=== PATIENT | female | born 1980 | race Caucasian/White ===

== ENCOUNTER 2020-05-17 16:05 | Emergency (ER) | payer OTHER, SELFPAY ==
[2020-05-17 16:42] VITALS: BP 142/59; PULSE 95; RESP 16; TEMP 36.9; O2SAT 99; BMI 26.8
--- NOTE | 2020-05-17 16:59 | ED_ITS ---
HPI - Female Genitourinary General Chief complaint: Vaginal Bleeding <Mic Ponce NP - Last Filed: 05/17/20 17:00> Stated complaint: heavy menstrual cycle, fatigue <Mic Ponce NP - Last Filed: 05/17/20 17:00> Time Seen by Provider: 05/17/20 16:58 <Mic Ponce NP - Last Filed: 05/17/20 17:00> Source: patient <Mic Ponce NP - Last Filed: 05/17/20 17:00> Mode of arrival: ambulatory <Mic Ponce NP - Last Filed: 05/17/20 17:00> Limitations: no limitations <Mic Ponce NP - Last Filed: 05/17/20 17:00> History of Present Illness HPI Narrative: 39-year-old female who reports past medical history of migraine headaches, gastroesophageal reflux disease who presents ambulatory via triage with complaint of vaginal bleeding. <Mic Ponce NP - Last Filed: 05/17/20 17:00> Related Data Allergies/Adverse reactions: Allergies Allergy/AdvReac Type Severity Reaction Status Date / Time acetaminophen [From Vicodin] Allergy Unknown UNKNOWN Unverified 03/13/20 16:30 hydrocodone [Vicodin] AdvReac Unknown vomiting Verified 09/10/15 00:00 Bactrim Allergy Unknown Uncoded 01/02/20 00:00 From Vicodin Allergy Unknown VOMITING Uncoded 03/13/20 16:30 Vicodin Allergy Unknown vomiting, Uncoded 01/02/20 00:00 nausea <Mic Ponce NP - Last Filed: 05/17/20 17:00> PMFSH Social History Social History: Social History Advance Directives: No Advance Directives Information Provided: Yes <Mic Ponce NP - Last Filed: 05/17/20 17:00> Physical Exam Vital Signs: Vital Signs: Last Vital Signs Temp 98.4 F 05/17/20 16:42 Pulse 95 05/17/20 16:42 Resp 16 05/17/20 16:42 BP 142/59 H 05/17/20 16:42 Pulse Ox 99 05/17/20 16:42 Body Mass Index 26.8 Reviewed <Mic Ponce NP - Last Filed: 05/17/20 17:00> Vital Signs: Last Vital Signs Temp 98.4 F 05/17/20 16:42 Pulse 95 05/17/20 16:42 Resp 16 05/17/20 16:42 BP 142/59 H 05/17/20 16:42 Pulse Ox 99 05/17/20 16:42 Body Mass Index 26.8 <Eros Choudhury NP - Last Filed: 05/17/20 17:01> Const: General: cooperative and healthy appearing; No acute distress or intoxicated appearing <Miccarmen Ponce NP - Last Filed: 05/17/20 17:00> Nutritional Appearance: average body habitus <[facility] JOSSUE Ponce - Last Filed: 05/17/20 17:00> Orientation/consciousness: patient oriented x3 <[facility] JOSSUE Ponce - Last Filed: 05/17/20 17:00> HENMT: Head: Yes normal to inspection <[facility] JOSSUE Ponce - Last Filed: 05/17/20 17:00> Ears: hearing grossly normal bilaterally <Mic JOSSUE Ponce - Last Filed: 05/17/20 17:00> Eyes: General: appearance normal, both eyes and all related structures <Miccarmen Ponce NP - Last Filed: 05/17/20 17:00> Visual Alvarez: normal visual alvarez by confrontation <Miccarmen Ponce NP - Last Filed: 05/17/20 17:00> Neck: Neck: Yes normal visual inspection, No positive Brudzinski's sign, No positive Kernig's sign and No tender <[facility] JOSSUE Ponce - Last Filed: 05/17/20 17:00> Thyroid: Thyroid normal <[facility] JOSSUE Ponce - Last Filed: 05/17/20 17:00> Chest: Chest palpation & inspection: normal inspection of the chest <Miccarmen Ponce NP - Last Filed: 05/17/20 17:00> Resp: Effort & Inspection: normal respiratory effort <[facility] JOSSUE Ponce - Last Filed: 05/17/20 17:00> Cardio: Jugular venous distension: no JVD <[facility] JOSSUE Ponce - Last Filed: 05/17/20 17:00> GI: Inspection: Yes normal to inspection <[facility] JOSSUE Ponce - Last Filed: 05/17/20 17:00> Percussion: Yes normal to percussion <Mic Ponce NP - Last Filed: 05/17/20 17:00> Auscultation: normal bowel sounds <Mic Ponce NP - Last Filed: 05/17/20 17:00> : Other: Pelvic exam done by EROS STAFFORD <Eros Choudhury NP - Last Filed: 05/17/20 17:01> General: Yes no CVA tenderness <Mic Ponce NP - Last Filed: 05/17/20 17:00> External Female Exam: normal external appearance <Eros Choudhury NP - Last Filed: 05/17/20 17:01> Speculum Exam - Vagina: normal appearance of the vagina and vaginal bleeding (small, BRB, no clots ) <Eros Choudhury NP - Last Filed: 05/17/20 17:01> Speculum Exam - Cervix: normal appearance of the cervix <Eros Choudhury NP - Last Filed: 05/17/20 17:01> Bimanual exam- vagina & uterus: normal bimanual exam <Eros Choudhury NP - Last Filed: 05/17/20 17:01> Bimanual Exam- Adnexa, other: normal adnexae <Eros Choudhury NP - Last Filed: 05/17/20 17:01> OB/external & speculum: vaginal bleeding (small, BRB, no clots ) <Eros Choudhury NP - Last Filed: 05/17/20 17:01> Back/Spine/Pelvis: Back: no CVA tenderness <Mic Ponce NP - Last Filed: 05/17/20 17:00> Skin: General skin exam: no rashes or lesions noted <Mic Ponce NP - Last Filed: 05/17/20 17:00> Neuro: General: patient oriented x3 <Mic Ponce NP - Last Filed: 05/17/20 17:00> Extrem: General: Yes normal to inspection <Mic Ponce NP - Last Filed: 05/17/20 17:00>
--- NOTE | 2020-05-17 17:00 | US_ITS ---
EXAMINATION: US PELVIS COMPLETE US PELVIS TRANSVAGINAL CLINICAL INFORMATION: Pain. Bleeding. LMP 10 days ago. Tubal ligation. COMPARISON: Pelvic ultrasound dated 03/07/2019. TECHNIQUE: Transabdominal and transvaginal imaging was performed. FINDINGS: The uterus is of normal size and echogenicity measuring 10.1 x 4.7 x 6.2 cm. A regular homogeneous endometrium is identified measuring 0.7 cm. Trace fluid within the endometrium. Nabothian cysts. Both ovaries are of normal size and echogenicity. The right measures 3 x 2.3 x 2 cm for a volume of 7.2 mL. Right-sided ovarian follicles. The left measures 4 x 3.6 x 2.9 cm for a volume of 21.9 mL. Septated left ovarian cyst measuring 2.9 x 2.3 x 3 cm, new when compared to the prior examination. There is no pelvic free fluid. US/US transvaginal IMPRESSION: 1. Trace fluid within the endometrium. Multiple nabothian cysts. 2. Septated left ovarian cyst measuring up to 3 cm, new when compared to the prior examination. 3. Previously seen right ovarian cyst versus follicle no longer identified.
--- NOTE | 2020-05-17 17:00 | US_ITS ---
EXAMINATION: US PELVIS COMPLETE US PELVIS TRANSVAGINAL CLINICAL INFORMATION: Pain. Bleeding. LMP 10 days ago. Tubal ligation. COMPARISON: Pelvic ultrasound dated 03/07/2019. TECHNIQUE: Transabdominal and transvaginal imaging was performed. FINDINGS: The uterus is of normal size and echogenicity measuring 10.1 x 4.7 x 6.2 cm. A regular homogeneous endometrium is identified measuring 0.7 cm. Trace fluid within the endometrium. Nabothian cysts. Both ovaries are of normal size and echogenicity. The right measures 3 x 2.3 x 2 cm for a volume of 7.2 mL. Right-sided ovarian follicles. The left measures 4 x 3.6 x 2.9 cm for a volume of 21.9 mL. Septated left ovarian cyst measuring 2.9 x 2.3 x 3 cm, new when compared to the prior examination. There is no pelvic free fluid. US/US pelvic complete IMPRESSION: 1. Trace fluid within the endometrium. Multiple nabothian cysts. 2. Septated left ovarian cyst measuring up to 3 cm, new when compared to the prior examination. 3. Previously seen right ovarian cyst versus follicle no longer identified.
[2020-05-17 17:27] LABS: Basophils Percent Auto 0.3 % (0-2); Eosinophils Absolute Auto 0.3 X10*3/uL (0.0-0.4); Eosinophils Percent Auto 3.2 % (0-4); Hematocrit 33.8 % (37-47); Hemoglobin 11.1 g/dl (12.0-16.0); Imm Gran Abs Auto 0.02 X10*3/uL (0.00-0.03); Imm Gran Pct Auto 0.2 % (0.0-0.4); Lymphocytes Absolute Auto 2.1 X10*3/uL (1.2-4.9); Lymphocytes Percent Auto 22.7 % (20-40); MANUAL DIFF FLAG NO; Mean Corpuscular HGB Conc 32.8 g/dl (31.0-35.0); Mean Corpuscular Hemoglobin 29.8 pg (27.0-33.0); Mean Corpuscular Volume 90.6 fL (80-98); Mean Platelet Volume 10.2 fL (9.4-12.3); Monocytes Absolute Auto 0.6 X10*3/uL (0.1-1.2); Monocytes Percent Auto 6.2 % (2-11); Neutrophils Absolute Auto 6.1 X10*3/uL (2.0-8.3); Neutrophils Percent Auto 67.4 % (45-73); Platelet Count 246 X10*3/uL (160-400); Red Blood Count 3.73 X10*6/uL (4.20-5.50); Red Cell Distribution Width 13.8 % (11.0-16.0); White Blood Count 9.1 X10*3/uL (4.8-10.8)
[2020-05-17 17:49] LABS: Alanine Aminotransferase 25 U/L (0-31); Albumin Level 4.1 g/dL (3.5-5.0); Alkaline Phosphatase 71 U/L (39-117); Anion Gap 11 (12-20); Aspartate Amino Transferase 18 U/L (5-31); Bilirubin Total 0.2 mg/dL (0.0-1.0); Blood Urea Nitrogen 10 mg/dL (9-16); Calcium 8.9 mg/dL (8.4-10.2); Carbon Dioxide 26 mmol/L (22-29); Chloride 102 mmol/L (96-108); Creatinine Clr Calc Pharmacy 85.9; Estimated Glomerular Filt Rate > 60; Glucose Random 126 mg/dL (60-115); Potassium 3.7 mmol/l (3.3-5.1); Sodium 135 mmol/L (135-145); Total Protein 7.1 g/dL (6.5-8.0)
[2020-05-18 13:10] LABS: BV Int Neg Control Negative (Negative); CT PCR NOT DETECTED (Not Detect.); NG PCR NOT DETECTED (Not Detect.)
[2020-05-18 13:11] LABS: BV Int Pos Control Positive (Positive)
== END 2020-05-17 20:01 | disposition home or self-care (01) ==
PROVIDERS: Nurse Practitioner Primary Care; Emergency Provider Internal Medicine; PCP Nurse Practitioner Family
DX: N93.8 Other specified abnormal uterine and vaginal bleeding (principal); R10.2 Pelvic and perineal pain; Z79.899 Other long term (current) drug therapy
CPT/HCPCS: 36415; 76830; 76856; 80053; 85025; 87480; 87491; 87510; 87591; 87660; 99283; 99284

== ENCOUNTER 2020-06-05 14:12 | Outpatient (REF) | payer OTHER, SELFPAY ==
[2020-06-06 07:23] LABS: BV Int Neg Control Negative (Negative); BV Int Pos Control Positive (Positive)
[2020-06-12 09:47] LABS: HPV mRNA E6/E7 rflx Not Detected (Not Detected)
[2020-07-04 16:15] LABS: CT PCR NOT DETECTED (Not Detect.); NG PCR NOT DETECTED (Not Detect.)
== END 2020-06-05 14:13 | disposition home or self-care (01) ==
LOC: HO.LAB 14:12
PROVIDERS: Visit Provider Advanced Practice Midwife
DX: Z01.419 Encounter for gynecological examination (general) (routine) without abnormal findings (principal); Z20.2 Contact with and (suspected) exposure to infections with a predominantly sexual mode of transmission; N93.8 Other specified abnormal uterine and vaginal bleeding
CPT/HCPCS: 87480; 87491; 87510; 87591; 87624; 87625; 87660; 88142

== ENCOUNTER 2020-08-22 10:31 | Outpatient (REF) | payer OTHER, SELFPAY ==
--- NOTE | ~2020-08-22 | XR_ITS ---
EXAMINATION: XR SINUSES CLINICAL INFORMATION: Sinusitis. COMPARISON: None TECHNIQUE: 4 views. FINDINGS: The right frontal sinus is not visualized, which may be secondary to opacification from sinusitis versus under-pneumatization. The left frontal sinus, maxillary sinuses appear well aerated. No acute calvarial fracture. XR/XR sinus min 3V IMPRESSION: Nonvisualization of the right frontal sinus, from sinusitis versus under- pneumatization.
== END 2020-08-22 10:32 | disposition home or self-care (01) ==
LOC: HO.XRAY 10:31
PROVIDERS: PCP Internal Medicine; Visit Provider Otolaryngology
DX: J32.9 Chronic sinusitis, unspecified (principal)
CPT/HCPCS: 70220

== ENCOUNTER 2020-08-25 16:17 | Outpatient (REF) | payer OTHER, SELFPAY ==
--- NOTE | ~2020-08-25 | MM_ITS ---
EXAMINATION: MM SCREENING DIGITAL BREAST TOMOSYNTHESIS, BILATERAL CLINICAL INFORMATION: Screening. Asymptomatic. Age 39. No prior breast imaging. No known family history breast cancer. The lifetime risk of breast cancer based on the Tyrer-Cuzick Model is 7%. COMPARISON: None (current study represents initial baseline exam). TECHNIQUE: Digital breast tomosynthesis is performed in both the craniocaudal and mediolateral oblique views along with computer-aided detection (CAD). Synthesized 2D images are generated from the tomosynthesis. FINDINGS: There are scattered areas of fibroglandular density (ACR BI-RADS breast composition Category b). There are no significant masses, abnormal calcifications, or other abnormalities. The axilla and skin contours are unremarkable. MM/MM tomosynthesis screening BI IMPRESSION: No mammographic evidence of malignancy. ASSESSMENT: BI-RADS 1: Negative RECOMMENDATION: Routine annual mammography screening. This patient's information was entered into a reminder system with a target due date for their next mammogram.
== END 2020-08-25 16:18 | disposition home or self-care (01) ==
LOC: HO.MAMMO 16:17
PROVIDERS: PCP Internal Medicine; Visit Provider Advanced Practice Midwife
DX: Z12.31 Encounter for screening mammogram for malignant neoplasm of breast (principal)
CPT/HCPCS: 77063; 77067

== ENCOUNTER 2020-11-06 15:05 | Outpatient (REF) | payer OTHER, SELFPAY ==
--- NOTE | ~2020-11-06 | XR_ITS ---
EXAMINATION: CERVICAL SPINE AND LUMBAR SPINE X-RAYS CLINICAL INFORMATION: Pain COMPARISON: None TECHNIQUE: 5 views of the cervical spine and 3 views of the lumbar spine FINDINGS: Cervical spine: There is curvature of the proximal thoracic spine to the right. Bone alignment is otherwise normal. No fracture or dislocation is seen. There is degenerative spondylosis from C3-C4 to C6-C7, greatest at C5-C6. There is mild right-sided neuroforaminal narrowing at C3-C4 from bony osteophyte. Bilateral neural foramen are otherwise patent. Prevertebral soft tissues are normal. Lumbar spine: Bone alignment is normal. No fracture or dislocation is seen. Disc spaces are normal. There is lower lumbar spine facet arthritis. XR/XR lumbar spine 2-3V IMPRESSION: Mild degenerative changes.
--- NOTE | ~2020-11-06 | XR_ITS ---
EXAMINATION: XR SHOULDER, LEFT CLINICAL INFORMATION: Shameka is isn't torn are outlined bases with opacity is home she there is now fluid in the abdomen or COMPARISON: Previous x-ray May 2016 TECHNIQUE: AP external rotation, Grashey, scapular Y, and axillary views of the left shoulder. FINDINGS: The bones and soft tissues are normal. No fracture. Glenohumeral and acromioclavicular alignment is anatomic with normal joint space. No abnormal soft tissue calcifications. XR/XR shoulder LT min 2V IMPRESSION: Normal left shoulder.
--- NOTE | ~2020-11-06 | XR_ITS ---
EXAMINATION: CERVICAL SPINE AND LUMBAR SPINE X-RAYS CLINICAL INFORMATION: Pain COMPARISON: None TECHNIQUE: 5 views of the cervical spine and 3 views of the lumbar spine FINDINGS: Cervical spine: There is curvature of the proximal thoracic spine to the right. Bone alignment is otherwise normal. No fracture or dislocation is seen. There is degenerative spondylosis from C3-C4 to C6-C7, greatest at C5-C6. There is mild right-sided neuroforaminal narrowing at C3-C4 from bony osteophyte. Bilateral neural foramen are otherwise patent. Prevertebral soft tissues are normal. Lumbar spine: Bone alignment is normal. No fracture or dislocation is seen. Disc spaces are normal. There is lower lumbar spine facet arthritis. XR/XR cervical spine min 6V IMPRESSION: Mild degenerative changes.
== END 2020-11-06 15:06 | disposition home or self-care (01) ==
LOC: HO.XRAY 15:05
PROVIDERS: PCP Internal Medicine; Visit Provider Internal Medicine
DX: M54.42 Lumbago with sciatica, left side (principal); M54.2 Cervicalgia
CPT/HCPCS: 72052; 72100; 73030

== ENCOUNTER 2020-12-22 15:30 | Outpatient (REF) | payer OTHER, SELFPAY ==
--- NOTE | ~2020-12-22 | US_ITS ---
EXAMINATION: PELVIC ULTRASOUND CLINICAL INFORMATION: Irregular menstrual cycles COMPARISON: Previous exam most recent April 2020 TECHNIQUE: Transabdominal and transvaginal pelvic ultrasound was performed. Transvaginal exam was performed for better visualization of the uterus and ovaries. FINDINGS: The uterus is anteverted and measures 13.3 x 4.6 x 5.9 cm in dimension. No focal uterine lesion is seen. Endometrial thickness measures 1.1 cm. There is a focal echogenic area in the endometrium with vascularity questionable for a polyp. This measures 1.1 x 0.7 x 1.2 cm. There are nabothian cysts in the cervix. The right ovary measures 3.6 x 2.4 x 2.9 cm. There is a 1.8 x 1.8 x 1.6 cm simple right ovarian cyst. The left ovary is not seen. There is no fluid in the pelvis. US/US pelvic and transvaginal IMPRESSION: Question 1 1 x 0.7 x 1.2 cm endometrial polyp. Left ovary not seen.
== END 2020-12-22 15:31 | disposition home or self-care (01) ==
LOC: HO.US 15:30
PROVIDERS: Visit Provider Internal Medicine
DX: N92.1 Excessive and frequent menstruation with irregular cycle (principal)
CPT/HCPCS: 76830; 76856

== ENCOUNTER 2021-01-07 14:18 | Outpatient (REF) | payer OTHER, SELFPAY ==
[2021-01-07 16:00] LABS: MANUAL DIFF FLAG NO
[2021-01-07 16:10] LABS: Basophils Percent Auto 0.5 % (0-2); Eosinophils Absolute Auto 0.3 X10*3/uL (0.0-0.4); Eosinophils Percent Auto 3.9 % (0-4); Hematocrit 32.4 % (37-47); Hemoglobin 10.4 g/dl (12.0-16.0); Imm Gran Abs Auto 0.03 X10*3/uL (0.00-0.03); Imm Gran Pct Auto 0.3 % (0.0-0.4); Lymphocytes Absolute Auto 2.4 X10*3/uL (1.2-4.9); Lymphocytes Percent Auto 27.5 % (20-40); Mean Corpuscular HGB Conc 32.1 g/dl (31.0-35.0); Mean Corpuscular Hemoglobin 28.1 pg (27.0-33.0); Mean Corpuscular Volume 87.6 fL (80-98); Monocytes Absolute Auto 0.6 X10*3/uL (0.1-1.2); Neutrophils Absolute Auto 5.3 X10*3/uL (2.0-8.3); Neutrophils Percent Auto 60.8 % (45-73); Platelet Count 327 X10*3/uL (160-400); Red Cell Distribution Width 16.6 % (11.0-16.0); White Blood Count 8.7 X10*3/uL (4.8-10.8)
[2021-01-07 16:18] LABS: Glucose Random 98 mg/dL (60-115)
[2021-01-07 16:44] LABS: Syphilis Screen Nonreactive (Nonreactive)
[2021-01-07 17:07] LABS: HCG Quantitative < 2 mIU/mL
[2021-01-07 18:08] LABS: Estimated Average Glucose 117 mg/dL; Hemoglobin A1c % 5.7 %
[2021-01-08 04:19] LABS: HIV AB/AG Nonreactive (Nonreactive); HIV Num 1 0.11 S/CO (0.00-0.99); ~HepC Num1 0.21 S/CO (0.00-0.79); ~Hepatitis C Antibody Nonreactive (Nonreactive)
[2021-01-08 04:24] LABS: HBsAGNum1 0.21 S/CO (0.00-0.99); Hepatitis B Surface Antigen Negative (Negative)
[2021-01-08 05:33] LABS: CT PCR NOT DETECTED (Not Detect.); NG PCR NOT DETECTED (Not Detect.)
== END 2021-01-07 14:19 | disposition home or self-care (01) ==
LOC: HO.LAB 14:18
PROVIDERS: Advanced Practice Midwife; PCP Internal Medicine; Visit Provider Obstetrics & Gynecology
DX: Z01.419 Encounter for gynecological examination (general) (routine) without abnormal findings (principal); Z11.4 Encounter for screening for human immunodeficiency virus [HIV]; Z11.3 Encounter for screening for infections with a predominantly sexual mode of transmission; Z01.84 Encounter for antibody response examination; Z11.59 Encounter for screening for other viral diseases; N92.0 Excessive and frequent menstruation with regular cycle; N93.8 Other specified abnormal uterine and vaginal bleeding; Z20.2 Contact with and (suspected) exposure to infections with a predominantly sexual mode of transmission
CPT/HCPCS: 36415; 82947; 83036; 84443; 84702; 85025; 86780; 86803; 87340; 87389; 87491; 87591

== ENCOUNTER 2021-01-08 17:00 | Outpatient (RCR) | payer OTHER, SELFPAY | END 2021-01-26 10:24 | disposition home or self-care (01) | LOC: HO.PT 17:00 | PROVIDERS: PCP Internal Medicine; Visit Provider Internal Medicine | DX: M54.89 Other dorsalgia (principal) | CPT/HCPCS: 97012; 97110; 97112; 97140; 97162 ==

== ENCOUNTER → 2021-01-21 15:11 | Outpatient (BNVA) | payer OTHER, SELFPAY | PROVIDERS: PCP Internal Medicine; Visit Provider Obstetrics & Gynecology ==

== ENCOUNTER 2021-01-23 06:41 | Day surgery (SDC) | payer OTHER, SELFPAY ==
--- NOTE | 2021-01-22 12:40 | HO.ANESPROP2 ---
Documented by User: Hanna Mondragon 01/22/21 12:42 HPI - Anesthesia Eval Consult details Narrative: 40yo F for D&C Hysteroscopy, Poss Polypectomy, Poss Myomectomy PMFSH Active Problems Active Problems: All Active Problems (Updated 01/07/21 @ 14:47 by Donovan Vyas MD) Menorrhagia (Acute) Dysfunctional uterine bleeding (Acute) Potential exposure to STD (Acute) Well woman exam with routine gynecological exam (Acute) Past Medical History Medical History Back pain Gallbladder abscess IBS (irritable bowel syndrome) Migraine Surgical History Surgical History Hx of tubal ligation Social History Social History Alcohol intake: never Patient Tobacco Use Status: Never used Tobacco Use of substances other than those prescribed or required for medical reasons: No Are you DNR?: No Advance Directives: No Advance Directives Information Provided: Yes Gender identity: female Meds Allergies Allergy/AdvReac Type Severity Reaction Status Date / Time acetaminophen [From Vicodin] Allergy Unknown UNKNOWN Verified 01/23/21 06:59 hydrocodone [Vicodin] AdvReac Unknown vomiting Verified 01/23/21 06:59 Bactrim Allergy Unknown Unknown Uncoded 01/21/21 15:24 From Vicodin Allergy Unknown VOMITING Uncoded 01/21/21 15:24 Vicodin Allergy Unknown vomiting, Uncoded 01/21/21 15:24 nausea Home Medications Medication Instructions Recorded Confirmed Last Taken Type amitriptyline 25 mg tablet 25 mg PO DAILY 06/05/20 Unknown History omeprazole 20 mg tablet,delayed 20 mg PO DAILY 06/05/20 01/23/21 06:00 History release sumatriptan succinate 100 mg tablet 100 mg PO Q2-4H PRN 06/05/20 Unknown History [id number]-[id number]-[id number] 250 2 tab PO Q6H PRN 01/21/21 01/21/21 History mg-250 mg-65 mg tablet (Excedrin Extra Strength) Exam Exam Date and Time: January 22, 2021 1240 Pertinent Lab Results Pertinent Lab Results: Laboratory Tests 01/07/21 15:10 WBC 8.7 Hgb 10.4 L Hct 32.4 L Plt Count 327 D Assessment and Plan Assessment Anesthesia Assessment: Chart Reviewed Documented by User: Christa Weller 01/23/21 08:29 PMFSH Past Medical History Medical History Back pain Gallbladder abscess IBS (irritable bowel syndrome) Migraine Surgical History Surgical History Hx of tubal ligation History of Problems with Anesthesia: No Social History Social History Alcohol intake: never Patient Tobacco Use Status: Never used Tobacco Use of substances other than those prescribed or required for medical reasons: No Are you DNR?: No Advance Directives: No Advance Directives Information Provided: Yes Gender identity: female Meds Allergies Allergy/AdvReac Type Severity Reaction Status Date / Time acetaminophen [From Vicodin] Allergy Unknown UNKNOWN Verified 01/23/21 06:59 hydrocodone [Vicodin] AdvReac Unknown vomiting Verified 01/23/21 06:59 Bactrim Allergy Unknown Unknown Uncoded 01/21/21 15:24 From Vicodin Allergy Unknown VOMITING Uncoded 01/21/21 15:24 Vicodin Allergy Unknown vomiting, Uncoded 01/21/21 15:24 nausea Home Medications Medication Instructions Recorded Confirmed Last Taken Type amitriptyline 25 mg tablet 25 mg PO DAILY 06/05/20 Unknown History omeprazole 20 mg tablet,delayed 20 mg PO DAILY 06/05/20 01/23/21 06:00 History release sumatriptan succinate 100 mg tablet 100 mg PO Q2-4H PRN 06/05/20 Unknown History [id number]-[id number]-[id number] 250 2 tab PO Q6H PRN 01/21/21 01/21/21 History mg-250 mg-65 mg tablet (Excedrin Extra Strength) Exam Airway Mallampati Class: II TM Dist: >3cm Heart: RRR Lungs: CTA Assessment and Plan Assessment Anesthesia Assessment: Anesthesia Plan Discussed and Chart Reviewed Final Anesthetic Review History of Problems with Anesthesia: No NPO: Yes ASA Class: II Final Preanesthetic Review: Meds/Allgs Chart Reviewed, Consent Obtained/Reviewed and Anes Risks/Benef Reviewed Patient Risk: Low Procedure Risk: Low Anesthetic Plan Anesthetic Plan: GA Disposition: Standard PACU
[2021-01-23] VITALS (11 sets, daily range): BP systolic 103–126; BP diastolic 62–73; PULSE 70–84; RESP 16–18; TEMP 36.3–36.4; O2SAT 94–100; BMI 27.9
[2021-01-23 07:14] LABS: UPreg QC Valid YES; Urine Pregnancy NEGATIVE (NEGATIVE)
--- NOTE | 2021-01-23 07:35 | MHC.SHP ---
Pre-Procedural Eval Section A Date of Service: 01/23/21 The patient is an INPATIENT: No Changes since office visit: No Cold of Flu in the past 2 weeks, No New Medical Problems, No Changes in Medication and No Patient answered all questions The History & Physical has been completed within 30 days and I have reviewed it.: Yes Section B Chief Complaint: Excessive and Frequent Mentruatuion Allergies: Allergies Allergy/AdvReac Type Severity Reaction Status Date / Time acetaminophen [From Vicodin] Allergy Unknown UNKNOWN Verified 01/23/21 06:59 hydrocodone [Vicodin] AdvReac Unknown vomiting Verified 01/23/21 06:59 Bactrim Allergy Unknown Unknown Uncoded 01/21/21 15:24 From Vicodin Allergy Unknown VOMITING Uncoded 01/21/21 15:24 Vicodin Allergy Unknown vomiting, Uncoded 01/21/21 15:24 nausea Plan Diagnosis/Plan: Unchanged I have reviewed the history and physical and performed a pertinent physical examination on my patient. No changes have occurred unless specified.
[2021-01-23] MEDS: Lactated Ringers 1,000 ML 100 ML IVCONT (07:45)
[2021-01-23] MEDS: Scopolamine 1.5 MG PATCH.TD.3 TRANSDERMA (08:19)
--- NOTE | 2021-01-23 08:45 | P.BOP_ITS ---
Brief Operative Note Date of Service: 01/23/21 Pre-op diagnosis: Menorrhagia with endometrial polyp by ultrasound Post-op diagnosis: same Procedure: Hysteroscopy D&C, Polypectomy Surgeon: Donovan Vyas MD Anesthesia: MAC Was an Spring Up Supervisor used for this Procedure?: No Estimated blood loss (mL): 0 Pathology: other (Endometrial Scrapping. Polyp) Condition: stable Disposition: PACU
--- NOTE | 2021-01-23 08:45 | P.OP_ITS ---
Operative Note Operative Note Date of Service: 01/23/21 Narrative: Preop Diagnosis: Menorrhagia with Endometrial polyp by US Operation: Diagnostic Hysteroscopy, Dilataion & Curettage and polypectomy Post Op Diagnosis: Endometrial Polyp QBL: Minimal Anesthesia: MAC Surgeon: Donovan Vays MD [employer] Paralegal: None Complication: None Pathology: Endometrial Scrapings, Endometrial polyp Procedure: The patient was put in the dorsal lithotomy position, scrubbed, and draped in the usual manner. A sterile speculum was inserted in the patient's vagina. The anterior lip of the cervix was grasped with a single tooth tenaculum. The cervix was dilated up to 5 mm, then the scope was inserted in the patient's uterus. Inspection revealed endometrial polyp. The Myosure Reach device was used; it was introduced through the operative channel and polypectomy done with no complications. At the end of the procedure, all instruments were taken out of the patient uterine and vaginal cavity. The single tooth tenaculum was removed and homeostasis was assured using pressure,. The patient tolerated the procedure well and was transferred to the PACU in a stable condition.
[2021-01-23] MEDS: Acetaminophen 325 MG TABLET 650 MG PO (09:18)
[2021-01-23] MEDS: oxyCODONE HCl Immed Release 5 MG TABLET PO (09:19)
[2021-01-23] MEDS: fentaNYL citrate/PF 100 MCG/2 ML VIAL 50 MCG IVPUSH (09:29)
[2021-01-23] MEDS: Ondansetron ODT 4 MG TAB.RAPDIS TRANSLINGU (10:45)
== END 2021-01-23 11:45 | disposition home or self-care (01) ==
PROVIDERS: PCP Internal Medicine; Visit Provider Obstetrics & Gynecology
PROC: 0UDB8ZZ Extraction of Endometrium, Via Natural or Artificial Opening Endoscopic (ICD-10-PCS; CPT 58558; principal; 2021-01-23 08:20)
DX: N92.0 Excessive and frequent menstruation with regular cycle (principal); N84.0 Polyp of corpus uteri; Z98.51 Tubal ligation status; Z79.82 Long term (current) use of aspirin; Z79.899 Other long term (current) drug therapy; Z88.0 Allergy status to penicillin
CPT/HCPCS: 58558; 81025; 88305; J1100; J1885; J2250; J2405; J3010

== ENCOUNTER 2021-01-28 15:05 | Outpatient (REF) | payer OTHER, SELFPAY ==
[2021-01-29 00:46] LABS: CT PCR NOT DETECTED (Not Detect.); NG PCR NOT DETECTED (Not Detect.)
== END 2021-01-28 15:06 | disposition home or self-care (01) ==
LOC: HO.LAB 15:05
PROVIDERS: PCP Internal Medicine; Visit Provider Obstetrics & Gynecology
DX: R10.2 Pelvic and perineal pain (principal)
CPT/HCPCS: 87491; 87591

== ENCOUNTER 2021-02-03 14:51 | Outpatient (REF) | payer OTHER, SELFPAY ==
[2021-02-03 16:43] LABS: Alanine Aminotransferase 26 U/L (0-31); Albumin Level 4.1 g/dL (3.5-5.0); Alkaline Phosphatase 71 U/L (39-117); Anion Gap 12 (12-20); Aspartate Amino Transferase 22 U/L (5-31); Bilirubin Total 0.2 mg/dL (0.0-1.0); Blood Urea Nitrogen 9 mg/dL (9-16); Calcium 9.1 mg/dL (8.4-10.2); Carbon Dioxide 26 mmol/L (22-29); Chloride 104 mmol/L (96-108); Estimated Glomerular Filt Rate > 60; Glucose Random 94 mg/dL (60-115); Lipase 15 U/L (8-78); Potassium 3.9 mmol/L (3.3-5.1); Sodium 138 mmol/L (135-145); Total Protein 7.2 g/dL (6.5-8.0)
[2021-02-05 11:06] LABS: Transglutaminase Ab IgG 8 U/mL; Transglutaminase IgA 1 U/mL
== END 2021-02-03 14:52 | disposition home or self-care (01) ==
LOC: HO.LAB 14:51
PROVIDERS: PCP Internal Medicine; Visit Provider Nurse Practitioner Family
DX: R14.0 Abdominal distension (gaseous) (principal); R10.11 Right upper quadrant pain; K21.9 Gastro-esophageal reflux disease without esophagitis; K59.04 Chronic idiopathic constipation; K58.1 Irritable bowel syndrome with constipation
CPT/HCPCS: 36415; 80053; 83516; 83690

== ENCOUNTER 2021-04-29 23:00 | Outpatient (REF) | payer OTHER, SELFPAY | END 2021-04-29 23:01 | disposition home or self-care (01) | LOC: HO.LNP 23:00 | PROVIDERS: Visit Provider Nurse Practitioner Family | DX: R14.0 Abdominal distension (gaseous) (principal) | CPT/HCPCS: 87338 ==

== ENCOUNTER → 2021-05-13 15:50 | Outpatient (BNVA) | payer OTHER, SELFPAY | PROVIDERS: PCP Internal Medicine; Visit Provider Nurse Practitioner Family ==

== ENCOUNTER 2021-07-23 11:20 | Emergency (ER) | payer OTHER, SELFPAY ==
--- NOTE | ~2021-07-23 | XR_ITS ---
EXAMINATION: XR CHEST CLINICAL INFORMATION: Shortness of breath and cough COMPARISON: Previous chest x-ray July 2019 TECHNIQUE: 2 views of the chest were obtained. FINDINGS: No significant abnormality is noted involving the heart, lungs, mediastinum, bony thorax or soft tissues. XR/XR chest 2V IMPRESSION: Unremarkable examination.
[2021-07-23 11:27] VITALS: BP 121/70; PULSE 92; RESP 18; TEMP 37.1; O2SAT 100; BMI 27.7
[2021-07-23 11:43] LABS: MANUAL DIFF FLAG NO
[2021-07-23 11:46] LABS: Basophils Absolute Auto 0.1 X10*3/uL (0.0-0.2); Basophils Percent Auto 0.5 % (0-2); Eosinophils Absolute Auto 0.4 X10*3/uL (0.0-0.4); Hematocrit 36.2 % (37.0-47.0); Hemoglobin 11.6 g/dl (12.0-16.0); Imm Gran Abs Auto 0.04 X10*3/uL (0.00-0.03); Imm Gran Pct Auto 0.4 % (0.0-0.4); Lymphocytes Absolute Auto 2.2 X10*3/uL (1.2-4.9); Lymphocytes Percent Auto 22.9 % (20-40); Mean Corpuscular Hemoglobin 29.3 pg (27.0-33.0); Mean Corpuscular Volume 91.4 fL (80.0-98.0); Mean Platelet Volume 9.7 fL (9.4-12.3); Monocytes Absolute Auto 0.6 X10*3/uL (0.1-1.2); Neutrophils Absolute Auto 6.4 x10*3/uL (2.0-8.3); Neutrophils Percent Auto 66.2 % (45-73); Platelet Count 344 X10*3/uL (160-400); Red Blood Count 3.96 X10*6/uL (4.20-5.50); Red Cell Distribution Width 13.8 % (11.0-16.0); White Blood Count 9.7 X10*3/uL (4.8-10.8)
[2021-07-23 11:51] LABS: UPreg QC Valid YES; Urine Pregnancy NEGATIVE (NEGATIVE)
--- NOTE | 2021-07-23 11:56 | ECG_ITS ---
Test Reason : WEAKNESS Blood Pressure : / mmHG Vent. Rate : 077 BPM Atrial Rate : 077 BPM P-R Int : 180 ms QRS Dur : 084 ms QT Int : 410 ms P-R-T Axes : 067 073 042 degrees QTc Int : 463 ms Normal sinus rhythm Normal ECG When compared with ECG of 04-MAR-2018 08:19, No significant change was found Referred By: Rhonda Escamilla Electronically Signed By:TIMUR ROQUE MD
--- NOTE | 2021-07-23 11:57 | ED_ITS ---
HPI - Weakness General Chief complaint: Weakness Stated complaint: WHEEZING WEAKNESS Time Seen by Provider: 07/23/21 11:36 Source: patient Mode of arrival: ambulatory Limitations: no limitations History of Present Illness HPI Narrative: Patient is a 40-year-old female with a past medical history significant for cris barrera, irritable bowel syndrome, vertigo, fibromyalgia, gallbladder abscess status post cholecystectomy. Patient reports symptom onset 6 days ago. While lying in bed she felt like she was going to pass out, reports becoming dizzy and very fatigued soon after. She has been having intermittent dizz iness/lightheadedness since then without any syncopal episodes. She reports that seem this is made worse with head movement her rapid position change. She describes as feeling off balance but unable to determine what makes it worse. Denies associated headache, vision changes, neck pain, chest pain, palpitations, pedal edema. She has also been experiencing increased frequency of diarrhea. This occurs after every time that she eats. She does endorse a history of IBS but states that is not typical for her to have diarrhea occur this frequently. There is associated nausea but no vomiting. She has had cramping to the bilateral lower lower abdomen intermittently over the past week. Denies dysuria but does endorse urinary frequency without urgency or hesitancy. Denies hematuria, abnormal vaginal discharge or bleeding, or pelvic pain. Denies any dark stools, but does report noting a pink tinge to the water after bowel movement, and denies menstruating at this time. Patient reports that she was COVID-19 positive at the end of May 2021. She has continued to have a cough that is intermittently productive with clear sputum, and she has been fatigued since then with some mild dyspnea with exertion. Denies fevers, chills, or known pulmonary disease. MD Complaint: lack of energy Onset (ago): week(s) Duration: intermittent Related Data Home Medications Medication Instructions Recorded Confirmed amitriptyline 25 mg tablet 25 mg PO DAILY 06/05/20 omeprazole 20 mg tablet,delayed 20 mg PO DAILY 06/05/20 release sumatriptan succinate 100 mg tablet 100 mg PO Q2-4H PRN 06/05/20 [id number]-ybkhjgirmddnm-[id number] 250 2 tab PO Q6H PRN 01/21/21 mg-250 mg-65 mg tablet (Excedrin Extra Strength) Previous Rx's Medication Instructions Recorded clotrimazole 1 % vaginal cream 1 appful VAGINAL BEDTIME #45 g 06/06/20 ferrous sulfate 325 mg (65 mg 325 mg PO BID 30 Days #60 tab 01/08/21 iron) tablet,delayed release docusate sodium 100 mg capsule 100 mg PO BEDTIME #30 cap 02/03/21 methylcellulose (laxative) 500 mg 500 mg PO DAILY #30 tab 02/03/21 tablet (Citrucel) sennosides 8.6 mg tablet (Natural 17.2 mg PO BEDTIME #60 tab 05/13/21 Senna Laxative) simethicone 125 mg capsule (Gas 125 mg PO TID-QID PRN #120 cap 05/13/21 Relief (simethicone)) Allergies Allergy/AdvReac Type Severity Reaction Status Date / Time hydrocodone [Vicodin] AdvReac Unknown vomiting Verified 07/23/21 11:27 Bactrim Allergy Unknown Unknown Uncoded 05/13/21 15:53 From Vicodin Allergy Unknown VOMITING Uncoded 05/13/21 15:53 Vicodin Allergy Unknown vomiting, Uncoded 05/13/21 15:53 nausea Review of Systems Verdana 4l Review of Systems: Verdana 4d [place] 4Bd Constitutional: fatigue. [place] 4d No weight loss, fever, chills, weakness. [place] 4Bd HEENT: [place] 4d No visual loss, blurred vision, double vision or yellow sclera. No hearing loss, sneezing, congestion, runny nose or sore throat. ArialArial 4Bd Skin: No rash or itching. Cardiovascular: No chest pain, chest pressure or chest discomfort. No palpitations or pedal edema. Respiratory: + mild dyspnea with exertion, intermittent cough with sputum production Gastrointestinal: + nausea, diarrhea, lower abdominal cramping. No anorexia, vomiting, or constipation. Genitourinary: + urinary frequency. No burning micturition. No urinary incontinence. Neurologic: + dizziness. No headache,, syncope, unilateral weakness, ataxia, numbness or tingling in the extremities. No change in bowel or bladder control. Musculoskeletal: No muscle pain, back pain, joint pain or stiffness. Hematologic: No bleeding or bruising. Lymphatics: No enlarged lymph nodes. Psychiatric:No depression or anxiety. Endocrine: No reports of sweating. No cold or heat intolerance. PMFSH Past Medical History Attestation statement: The following information was validated with the patient. Source: old records reviewed Medical History Back pain Gallbladder abscess IBS (irritable bowel syndrome) Migraine Surgical History Hx of hysterectomy Hx of tubal ligation Social History Social History Alcohol intake: never Patient Tobacco Use Status: Never used Tobacco Advance Directives: No Advance Directives Information Provided: Yes Gender identity: Female Physical Exam Verdana 4l Vital Signs: [place]dana 4d Verdana 4d Vital Signs: [place] 4d [place] 4Bd Last Vital Signs Verdana 4d Skin Care Consultant New 4d Skin Care Consultant New 4d Temp 98.7 F 07/23/21 11:27 Skin Care Consultant New 4d Pulse 92 07/23/21 11:27 Skin Care Consultant New 4d Resp 18 07/23/21 11:27 BP 121/70 07/23/21 11:27 Pulse Ox 100 07/23/21 11:27 BMI result Body Mass Index 27.7 Vital signs have been reviewed as normal and appeared to be correct. Blood pressure normal.? Heart rate normal.? Respiration rate normal. Temperature normal.? Oxygen saturation normal. Appearance: Alert.?Oriented to person, place and time. No acute distress.?Normal affect. Head: Normocephalic, atraumatic. No head, sinus or TMJ tenderness.? Eyes: Sclera white, conjunctiva pink. PERRL, 3 mm bilaterally. Visual [place] full to confrontation, EOMi.?No Nystagmus. Ears: Bilateral ear canals clear, TM visible with good cone of light.? Nose: Nasal mucosa pink and moist with midline septum, nares patent laurie aterally.? Mouth/ Throat: Oral mucosa pink and moist without lesions. Pharynx without exudate, tonsils symmetric, no adenopathy.? Neck: Normal inspection.? Neck supple.?? CVS: Heart sounds normal. Normal heart rate and rhythm.? Pulses normal.?? Respiratory: No respiratory distress.? Lung sounds clear to auscultation bilaterally?? Abdomen: Abdomen is soft and nontender. Normoactive bowel sounds. No pulsatile mass.?+ external hemorrhoids Skin: Skin warm and dry.? Normal skin color.? Normal skin turgor.?? Extremities: No lower extremity edema.? No calf ttp? Neuro: Moves all extremities spontaneously. Sensation intact bilaterally. No focal neuro deficits. Ambulates with normal steady gait. Course Course Course Narrative: Patient is a 40-year-old female who presented to the emergency department for m ultiple complaints including dizziness, fatigue, diarrhea, urinary frequency, and cough. CBC and a CMP, lipase to be obtained to exclude leukocytosis, anemia, electrolyte abnormality, abnormal renal function, abnormal hepatic/ biliary function. EKG to evaluate for arrhythmia. Chest x-ray to exclude infectious process or mass. Patient was seen once in L IV fluid and Zofran IV. Disposition pending results. Reevaluation(s) Reevaluation #1: Mild anemia hemoglobin 11.6 and hematocrit 36.2 consistent with comparison to labs in 2020 in 2020. No acute kidney injury, liver function testing normal, lipase normal, Urinalysis normal. EKG normal. Chest x-ray unremarkable for any acute disease. Insufficient stool in vault to obtain specimen for occult blood. Patient in no acute distress. She is tolerating oral fluids and food. Reports improvement in her dizziness after receiving IV fluids. Her dizziness is most consistent with vertigo, as it is intermittent sudden provoked by head movement, no ataxia, no arrhythmia. Regarding concern for possible rectal bleeding, given single occurrence of red tinge to water after bowel movement, advised this may be in relation to hemorrhoid, but cannot completely exclude occult blood in stool as not able to obtain specimen. Hemoglobin and hematocrit are stable, would follow up outpatient. Plan for discharge home, discussed return precautions, and advised to schedule follow-up with primary care provider in 1-3 days. Time: 14:17 [facility] - Weakness Medical Records Attestation: I reviewed the patient's medical records. Lab Data Attestation: I reviewed the patient's lab results. Result diagrams: 07/23/21 11:36 07/23/21 11:36 Labs: Lab Results 07/23/21 07/23/21 07/23/21 Range/Units 11:36 11:36 11:36 WBC 9.7 (4.8-10.8) X10*3/uL RBC 3.96 L (4.20-5.50) X10*6/uL Hgb 11.6 L (12.0-16.0) g/dl Hct 36.2 L (37.0-47.0) % MCV 91.4 (80.0-98.0) fL MCH 29.3 (27.0-33.0) pg MCHC 32.0 (31.0-35.0) g/dl RDW 13.8 (11.0-16.0) % Plt Count 344 (160-400) X10*3/uL MPV 9.7 (9.4-12.3) fL Immature Gran % (Auto) 0.4 (0.0-0.4) % Neut % (Auto) 66.2 (45-73) % Lymph % (Auto) 22.9 (20-40) % [place] % (Auto) 6.0 (2-11) % Eos % (Auto) 4.0 (0-4) % Baso % (Auto) 0.5 (0-2) % Lymph # (Auto) 2.2 (1.2-4.9) X10*3/uL [place] # (Auto) 0.6 (0.1-1.2) X10*3/uL Eos # (Auto) 0.4 (0.0-0.4) X10*3/uL Baso # (Auto) 0.1 (0.0-0.2) X10*3/uL Abs Immat Gran (auto) 0.04 H (0.00-0.03) X10*3/uL Absolute Neuts (auto) 6.4 (2.0-8.3) x10*3/uL Absolute Nucleated RBC 0.000 (0.0-0.012) X10*3/uL Nucleated RBC % (auto) 0.0 (0.0-0.2) /100WBC Sodium 134 L (135-145) mmol/L Potassium 4.0 (3.3-5.1) mmol/L Chloride 101 (96-108) mmol/L Carbon Dioxide 28 (22-29) mmol/L Anion Gap 9 L (12-20) BUN 9 (9-16) mg/dL Creatinine 0.74 (0.5-1.4) mg/dL Estim Creat Clear Calc 86.4 Estimated GFR > 60 Random Glucose 109 (60-115) mg/dL Calcium 9.4 (8.4-10.2) mg/dL Total Bilirubin 0.2 (0.0-1.0) mg/dL AST 23 (5-31) U/L ALT 28 (0-31) U/L Alkaline Phosphatase 82 (39-117) U/L Total Protein 7.6 (6.5-8.0) g/dL Albumin 4.2 (3.5-5.0) g/dL Lipase 17 (8-78) U/L Urine Color Urine Appearance Urine pH (5.0-8.0) Ur Specific [place] (1.005-1.025) Urine Protein (NEG-TRACE) MG/DL Urine Glucose (UA) (NEG) MG/DL Urine Ketones (NEG) MG/DL Urine Blood (NEG) Urine Nitrite (NEG) Ur Leukocyte Esterase (NEG) Urine Test NEGATIVE (NEGATIVE) 07/23/21 Range/Units 13:08 WBC (4.8-10.8) X10*3/uL RBC (4.20-5.50) X10*6/uL Hgb (12.0-16.0) g/dl Hct (37.0-47.0) % MCV (80.0-98.0) fL MCH (27.0-33.0) pg MCHC (31.0-35.0) g/dl RDW (11.0-16.0) % Plt Count (160-400) X10*3/uL MPV (9.4-12.3) fL Immature Gran % (Auto) (0.0-0.4) % Neut % (Auto) (45-73) % Lymph % (Auto) (20-40) % [place] % (Auto) (2-11) % Eos % (Auto) (0-4) % Baso % (Auto) (0-2) % Lymph # (Auto) (1.2-4.9) X10*3/uL [place] # (Auto) (0.1-1.2) X10*3/uL Eos # (Auto) (0.0-0.4) X10*3/uL Baso # (Auto) (0.0-0.2) X10*3/uL Abs Immat Gran (auto) (0.00-0.03) X10*3/uL Absolute Neuts (auto) (2.0-8.3) x10*3/uL Absolute Nucleated RBC (0.0-0.012) X10*3/uL Nucleated RBC % (auto) (0.0-0.2) /100WBC Sodium (135-145) mmol/L Potassium (3.3-5.1) mmol/L Chloride (96-108) mmol/L Carbon Dioxide (22-29) mmol/L Anion Gap (12-20) BUN (9-16) mg/dL Creatinine (0.5-1.4) mg/dL Estim Creat Clear Calc Estimated GFR Random Glucose (60-115) mg/dL Calcium (8.4-10.2) mg/dL Total Bilirubin (0.0-1.0) mg/dL AST (5-31) U/L ALT (0-31) U/L Alkaline Phosphatase (39-117) U/L Total Protein (6.5-8.0) g/dL Albumin (3.5-5.0) g/dL Lipase (8-78) U/L Urine Color STRAW Urine Appearance CLEAR Urine pH 6.0 (5.0-8.0) Ur Specific [place] <= 1.005 (1.005-1.025) Urine Protein NEG (NEG-TRACE) MG/DL Urine Glucose (UA) NEG (NEG) MG/DL Urine Ketones NEG (NEG) MG/DL Urine Blood NEG (NEG) Urine Nitrite NEG (NEG) Ur Leukocyte Esterase NEG (NEG) Urine Test (NEGATIVE) Imaging Data Chest x-ray: Attestation: I personally reviewed and interpreted this imaging study as follows: Radiologist's impression: IMPRESSION: Unremarkable examination. ECG Data Attestation: I personally reviewed and interpreted this ECG as follows: ECG interpretation date: 07/23/21 ECG interpretation time: 14:49 Prior ECG tracings: available for review Interpretation: Rate: 77 Rhythm:? Normal sinus rhythm [place]:? Normal Normal P waves.? Normal ANTHONY.?? Normal QRS complex.?? ST T wave :??No ST elevation or T-wave inversion qTC: 463 prior studies:? February 2018 The study has been interpreted contemporaneously by me. Discharge Plan Discharge Clinical Impression: Vertigo, Irritable bowel syndrome Patient Disposition: Home, Self-Care Additional Instructions: Your feeling better today after receiving some IV fluids and nausea medication. You have meclizine at home. Please contact your primary care provider to schedule follow-up appointment in 1-3 days. In addition, as we discussed you may return to the emergency department with any new or worsening symptoms or concerns. Prescriptions: No Action clotrimazole 1 % cream 1 appful vaginal BEDTIME Qty: 45 0RF ferrous sulfate 325 mg (65 mg iron) tablet,delayed release (DR/EC) 325 mg PO BID 30 Days Qty: 60 2RF sumatriptan succinate 100 mg tablet 100 mg PO Q2-4H PRN0RF Rx Instructions: do not exceed 2 doses per 24 hrs omeprazole 20 mg tablet,delayed release (DR/EC) 20 mg PO DAILY 0RF amitriptyline 25 mg tablet 25 mg PO DAILY 0RF Citrucel 500 mg tablet 500 mg PO DAILY Qty: 30 2RF Rx Instructions: take it with full glass of water docusate sodium 100 mg capsule 100 mg PO BEDTIME Qty: 30 3RF Excedrin Extra Strength 250-250-65 mg tablet 2 tab PO Q6H PRN (Reason: Migraine Headache) 0RF simethicone [Gas Relief (simethicone)] 125 mg capsule 125 mg PO TID-QID PRN (Reason: abdominal distention) Qty: 120 2RF sennosides [Natural Senna Laxative] 8.6 mg tablet 17.2 mg PO BEDTIME Qty: 60 1RF
[2021-07-23 12:02] LABS: Alanine Aminotransferase 28 U/L (0-31); Albumin Level 4.2 g/dL (3.5-5.0); Alkaline Phosphatase 82 U/L (39-117); Anion Gap 9 (12-20); Aspartate Amino Transferase 23 U/L (5-31); Bilirubin Total 0.2 mg/dL (0.0-1.0); Blood Urea Nitrogen 9 mg/dL (9-16); Calcium 9.4 mg/dL (8.4-10.2); Carbon Dioxide 28 mmol/L (22-29); Chloride 101 mmol/L (96-108); Creatinine Clr Calc Pharmacy 86.4; Estimated Glomerular Filt Rate > 60; Glucose Random 109 mg/dL (60-115); Sodium 134 mmol/L (135-145); Total Protein 7.6 g/dL (6.5-8.0)
[2021-07-23] MEDS: 0.9 % Sodium Chloride 1,000 ML 999 ML IV (12:22)
[2021-07-23 12:24] LABS: Lipase 17 U/L (8-78)
[2021-07-23] MEDS: ondansetron HCL 4 MG/2 ML VIAL IVPUSH (12:35)
[2021-07-23 13:15] LABS: Appearance Urine CLEAR; Color Urine STRAW; Glucose Urine UA NEG (NEG); Leukocyte Esterase Urine NEG (NEG); Nitrite Urine NEG (NEG); Specific Gravity - Urine <= 1.005 (1.005-1.025); Urine Blood NEG (NEG); Urine Ketones NEG (NEG); Urine Protein NEG (NEG-TRACE)
== END 2021-07-23 15:32 | disposition home or self-care (01) ==
PROVIDERS: Nurse Practitioner Family; Emergency Provider Emergency Medicine Emergency Medical Services; PCP Internal Medicine
DX: R42 Dizziness and giddiness (principal); K58.0 Irritable bowel syndrome with diarrhea; R53.83 Other fatigue
CPT/HCPCS: 36415; 71046; 80053; 81003; 81025; 83690; 85025; 93005; 96361; 96374; 99283; 99284; J2405

== ENCOUNTER 2021-07-27 09:07 | Outpatient (REF) | payer OTHER, SELFPAY ==
[2021-07-27 12:16] LABS: Folate 16.2 ng/mL (> or = 4.0); Vitamin B12 407 pg/mL (200-900)
[2021-07-31 13:45] LABS: Vitamin D 25-OH, D2 <4 ng/mL; Vitamin D 25-OH, D3 16 ng/mL; Vitamin D 25-OH, Total 16 ng/mL (30-100)
== END 2021-07-27 09:08 | disposition home or self-care (01) ==
LOC: HO.LAB 09:07
PROVIDERS: PCP Internal Medicine; Referring Provider Internal Medicine; Visit Provider Nurse Practitioner Family
DX: N93.8 Other specified abnormal uterine and vaginal bleeding; E55.9 Vitamin D deficiency, unspecified; Z20.2 Contact with and (suspected) exposure to infections with a predominantly sexual mode of transmission; Z01.419 Encounter for gynecological examination (general) (routine) without abnormal findings
CPT/HCPCS: 36415; 82306; 82607; 82746

== ENCOUNTER 2021-07-30 09:07 | Outpatient (REF) | payer OTHER, SELFPAY ==
[2021-08-04 16:21] LABS: CT PCR NOT DETECTED (Not Detect.); NG PCR NOT DETECTED (Not Detect.)
[2021-08-06 19:56] LABS: HPV mRNA E6/E7 rflx Not Detected (Not Detected)
== END 2021-07-30 09:08 | disposition home or self-care (01) ==
LOC: HO.LAB 09:07
PROVIDERS: Visit Provider Advanced Practice Midwife
DX: Z01.411 Encounter for gynecological examination (general) (routine) with abnormal findings (principal); Z11.51 Encounter for screening for human papillomavirus (HPV); R10.2 Pelvic and perineal pain; Z20.2 Contact with and (suspected) exposure to infections with a predominantly sexual mode of transmission; Z98.890 Other specified postprocedural states
CPT/HCPCS: 87491; 87591; 87624; 88142

== ENCOUNTER 2021-08-04 13:22 | Outpatient (REF) | payer OTHER, SELFPAY | END 2021-08-04 13:23 | disposition home or self-care (01) | LOC: HO.LNP 13:22 | PROVIDERS: Visit Provider Advanced Practice Midwife | DX: Z13.89 Encounter for screening for other disorder (principal) | CPT/HCPCS: 87491; 87591 ==

== ENCOUNTER 2021-09-15 16:19 | Outpatient (REF) | payer OTHER, SELFPAY ==
--- NOTE | ~2021-09-15 | MR_ITS ---
EXAMINATION: MRI OF THE BRAIN WITHOUT CONTRAST CLINICAL INFORMATION: 40-year-old with tremor, dizziness and giddiness. COMPARISON: 04/15/2017 CT brain. TECHNIQUE: Multiplanar multisequence MR imaging of the brain was done without IV contrast. Technical note: Examination was degraded by motion artifact throughout the study. Limited exam. FINDINGS: Brain Volume: Grossly unremarkable within the limitations of a qualitative assessment. Structural: No obvious malformations. Brain and Meninges: DWI sequence demonstrates no restricted diffusion. Specifically, there is no evidence for acute or subacute cerebral ischemia. Gradient refocused imaging demonstrates no evidence for hemorrhage, hemosiderin staining or abnormal mineral deposition. The brain appears normal in morphology and signal intensity within the limitations of the study (motion artifact). No extra-axial fluid collections, space-occupying process or mass effect are identified. Ventricles and Subarachnoid Spaces: The ventricular system and subarachnoid spaces are within normal limits. There is no hydrocephalus. Orbital Structures: The visualized orbital structures are grossly unremarkable within the limitations of the study. Vascular: Signal voids are noted in the visualized major intracranial vessels. Sinuses and Osseous Structures: Unremarkable but poorly assessed. Possible minimal retained secretions in the left mastoid. MR/MR head/brain wo con IMPRESSION: 1. Limited study due to excessive gross patient motion artifact throughout the exam. 2. No acute intracranial process identified. Unremarkable noncontrast MRI of the brain within the limitations of the exam. 3. Possible minimal retained secretions in the left mastoid.
== END 2021-09-15 16:20 | disposition home or self-care (01) ==
LOC: HO.MRI 16:19
PROVIDERS: Visit Provider Internal Medicine
DX: R25.1 Tremor, unspecified (principal); R42 Dizziness and giddiness
CPT/HCPCS: 70551

== ENCOUNTER 2021-09-21 17:08 | Outpatient (REF) | payer OTHER, SELFPAY ==
[2021-09-21 17:28] LABS: MANUAL DIFF FLAG NO
[2021-09-21 17:52] LABS: Basophils Absolute Auto 0.1 X10*3/uL (0.0-0.2); Basophils Percent Auto 0.6 % (0-2); Eosinophils Absolute Auto 0.4 X10*3/uL (0.0-0.4); Eosinophils Percent Auto 4.1 % (0-4); Hematocrit 35.4 % (37.0-47.0); Hemoglobin 11.3 g/dl (12.0-16.0); Imm Gran Abs Auto 0.02 X10*3/uL (0.00-0.03); Imm Gran Pct Auto 0.2 % (0.0-0.4); Lymphocytes Absolute Auto 2.7 X10*3/uL (1.2-4.9); Lymphocytes Percent Auto 28.2 % (20-40); Mean Corpuscular HGB Conc 31.9 g/dl (31.0-35.0); Mean Corpuscular Volume 90.8 fL (80.0-98.0); Mean Platelet Volume 9.8 fL (9.4-12.3); Monocytes Absolute Auto 0.6 X10*3/uL (0.1-1.2); Monocytes Percent Auto 6.4 % (2-11); Neutrophils Absolute Auto 5.8 x10*3/uL (2.0-8.3); Neutrophils Percent Auto 60.5 % (45-73); Platelet Count 319 X10*3/uL (160-400); Red Cell Distribution Width 14.3 % (11.0-16.0); White Blood Count 9.5 X10*3/uL (4.8-10.8)
[2021-09-21 17:58] LABS: Estimated Average Glucose 108 mg/dL; Hemoglobin A1c % 5.4 %
[2021-09-21 18:19] LABS: C Reactive Protein 0.66 mg/dL (< or = 0.50)
[2021-09-21 18:20] LABS: Alanine Aminotransferase 27 U/L (0-31); Albumin Level 4.4 g/dL (3.5-5.0); Alkaline Phosphatase 86 U/L (39-117); Anion Gap 11 (12-20); Aspartate Amino Transferase 19 U/L (5-31); Bilirubin Direct < 0.2 mg/dL (0.0-0.5); Bilirubin Total 0.2 mg/dL (0.0-1.0); Blood Urea Nitrogen 10 mg/dL (9-16); Calcium 9.8 mg/dL (8.4-10.2); Carbon Dioxide 28 mmol/L (22-29); Chloride 101 mmol/L (96-108); Cholesterol 224 mg/dL; Estimated Glomerular Filt Rate > 60; Glucose Random 87 mg/dL (60-115); HDL Cholesterol 39 mg/dL; LDL Cholesterol Calculated 139 mg/dl; Potassium 4.2 mmol/L (3.3-5.1); Sodium 136 mmol/L (135-145); Total Protein 7.6 g/dL (6.5-8.0); Triglycerides 233 mg/dL
[2021-09-21 18:27] LABS: Erythrocyte Sedimentation Rate 27 MM/HR (0-20)
[2021-09-21 18:40] LABS: Syphilis Screen Nonreactive (Nonreactive); TSH reflex Free T4 2.32 uIU/mL (0.32-4.0); Vitamin D 25-OH Total 18.2 ng/mL (>30)
[2021-09-23 15:26] LABS: Anti Nuclear Antibody Screen NEGATIVE (NEGATIVE)
[2021-09-25 15:17] LABS: CK-BB None Detected (None Detected); CK-MB 0 % (<5); CK-MM 100 % (95-100); Creatine Kinase,Total,Serum 166 U/L (29-143)
== END 2021-09-21 17:09 | disposition home or self-care (01) ==
LOC: HO.LAB 17:08
PROVIDERS: PCP Internal Medicine; Visit Provider Internal Medicine
DX: R53.83 Other fatigue (principal); R25.1 Tremor, unspecified
CPT/HCPCS: 36415; 80048; 80061; 80076; 82306; 82552; 83036; 84443; 85025; 85652; 86038; 86039; 86140; 86780

== ENCOUNTER → 2021-11-04 11:47 | Outpatient (RCR) | payer OTHER, SELFPAY | END | disposition home or self-care (01) | LOC: HO.PTCHIC 07-17 16:52 | PROVIDERS: PCP Nurse Practitioner Family; Visit Provider Nurse Practitioner Family | DX: M54.9 Dorsalgia, unspecified (principal) | CPT/HCPCS: 97014; 97110; 97161 ==

== ENCOUNTER 2021-11-24 16:09 | Outpatient (REF) | payer OTHER, SELFPAY ==
--- NOTE | ~2021-11-24 | US_ITS ---
EXAMINATION: US VENOUS ULTRASOUND WITH DOPPLER LOWER EXTREMITY, BILATERAL CLINICAL INFORMATION: Bilateral leg swelling. Assess for occult DVT. COMPARISON: None TECHNIQUE: Ultrasound of the deep veins is performed from the hip to the calf with compression sonography and color and pulse Doppler assessment. Spectral analysis with color-flow imaging is performed. FINDINGS: RIGHT: There is normal venous compression and respiratory variation and augmented flow. The visualized common femoral vein, superficial femoral vein, profunda femoral vein, popliteal vein, and the trifurcation region shows no evidence of deep venous thrombosis. No popliteal fossa cyst. LEFT: There is normal venous compression and respiratory variation and augmented flow. The visualized common femoral vein, superficial femoral vein, profunda femoral vein, popliteal vein, and the trifurcation region shows no evidence of deep venous thrombosis. No popliteal fossa cyst. US/US venous duplex LE BI IMPRESSION: No DVT demonstrated in the bilateral lower extremity.
== END 2021-11-24 16:10 | disposition home or self-care (01) ==
LOC: HO.US 16:09
PROVIDERS: PCP Internal Medicine; Visit Provider Internal Medicine
DX: K58.2 Mixed irritable bowel syndrome (principal); R22.43 Localized swelling, mass and lump, lower limb, bilateral; R14.0 Abdominal distension (gaseous); E66.3 Overweight; R79.89 Other specified abnormal findings of blood chemistry
CPT/HCPCS: 93970

== ENCOUNTER 2021-12-29 22:32 | Emergency (ER) | payer OTHER, SELFPAY | END 2021-12-30 00:30 | disposition left against medical advice (07) | PROVIDERS: Emergency Provider Emergency Medicine; PCP Internal Medicine | DX: G43.909 Migraine, unspecified, not intractable, without status migrainosus (principal) ==

== ENCOUNTER 2022-02-02 18:25 | Emergency (ER) | payer OTHER, SELFPAY ==
[2022-02-02 19:24] VITALS: BP 104/63; PULSE 84; RESP 15; TEMP 36; O2SAT 97; BMI 29.2
[2022-02-02 19:39] LABS: MANUAL DIFF FLAG NO
[2022-02-02 19:54] LABS: Basophils Absolute Auto 0.1 X10*3/uL (0.0-0.2); Basophils Percent Auto 0.5 % (0-2); Eosinophils Absolute Auto 0.3 X10*3/uL (0.0-0.4); Eosinophils Percent Auto 3.3 % (0-4); Hematocrit 30.7 % (37.0-47.0); Imm Gran Abs Auto 0.04 X10*3/uL (0.00-0.03); Imm Gran Pct Auto 0.4 % (0.0-0.4); Lymphocytes Percent Auto 30.3 % (20-40); Mean Corpuscular HGB Conc 32.6 g/dl (31.0-35.0); Mean Corpuscular Hemoglobin 29.9 pg (27.0-33.0); Mean Corpuscular Volume 91.6 fL (80.0-98.0); Monocytes Absolute Auto 0.4 X10*3/uL (0.1-1.2); Monocytes Percent Auto 4.5 % (2-11); Platelet Count 268 X10*3/uL (160-400); Red Blood Count 3.35 X10*6/uL (4.20-5.50); Red Cell Distribution Width 13.9 % (11.0-16.0); White Blood Count 9.9 X10*3/uL (4.8-10.8)
[2022-02-02 19:56] LABS: Alanine Aminotransferase 21 U/L (0-31); Albumin Level 4.1 g/dL (3.5-5.0); Alkaline Phosphatase 71 U/L (39-117); Anion Gap 13 (12-20); Aspartate Amino Transferase 18 U/L (5-31); Bilirubin Total < 0.2 mg/dL (0.0-1.0); Blood Urea Nitrogen 11 mg/dL (9-16); Calcium 8.6 mg/dL (8.4-10.2); Carbon Dioxide 23 mmol/L (22-29); Chloride 105 mmol/L (96-108); Creatinine Clr Calc Pharmacy 86.7; Estimated Glomerular Filt Rate > 60; Glucose Random 131 mg/dL (60-115); Potassium 3.5 mmol/L (3.3-5.1); Sodium 137 mmol/L (135-145); Total Protein 7.1 g/dL (6.5-8.0)
[2022-02-02 20:03] LABS: HCG Quantitative < 2 mIU/mL
[2022-02-02 20:35] LABS: Appearance Urine CLEAR; Color Urine YELLOW; Glucose Urine UA NEG (NEG); Leukocyte Esterase Urine NEG (NEG); Nitrite Urine NEG (NEG); Specific Gravity - Urine <= 1.005 (1.005-1.025); UACC Culture Trigger NO; Urine Blood 3+ (NEG); Urine Ketones NEG (NEG); Urine Protein NEG (NEG-TRACE)
[2022-02-02 21:15] LABS: Amorphous Sediment Urine TRACE /LPF; Granular Casts Urine 0-2 /LPF; Mucus Urine TRACE /LPF; Squamous Epithelial Cell Urine 2+ /LPF; WBC Urine 0-2 /HPF (0-4)
--- NOTE | 2022-02-02 23:33 | ED_ITS ---
HPI - Female Genitourinary General Chief complaint: Vaginal Bleeding Stated complaint: Vag Bleed Time Seen by Provider: 02/02/22 23:14 Source: patient Mode of arrival: ambulatory Limitations: no limitations History of Present Illness HPI Narrative: 41 yo female with hx of IBS, headaches, uterine fibroids, heavy periods, here with c/o bleeding x 1 month she is taking Fe BID and she also has seen her PCP who started her on Provera 5mg 01/22 but she didn't start the med until 3 days ago. She does note that she feels it is helping. She has an appointment with her OBGYN next week. She seems anxious and worried. MD elicited complaint: vaginal bleeding Pertinent past history: other (heavy bleeding, fibroids, D+C) Onset (ago): month(s) (1) Location of symptoms: pelvis Severity: mild Quality of pain: cramping Vaginal bleeding: moderate, bright red, clots and # pads per day (multiple) Exacerbating factors: movement Associated symptoms: other (notes she has fatigue, headaches) Treatment prior to arrival: other (takes her iron and has had 3 days of 5mg provera) Related Data Home Medications Medication Instructions Recorded Confirmed amitriptyline 25 mg tablet 25 mg PO DAILY 06/05/20 07/30/21 omeprazole 20 mg tablet,delayed 20 mg PO DAILY 06/05/20 07/30/21 release sumatriptan succinate 100 mg tablet 100 mg PO Q2-4H PRN 06/05/20 07/30/21 [id number]-veqqsywcdwond-pulbhtqo 250 2 tab PO Q6H PRN Migraine Headache 01/21/21 07/30/21 mg-250 mg-65 mg tablet (Excedrin Extra Strength) Previous Rx's Medication Instructions Recorded ferrous sulfate 325 mg (65 mg 325 mg PO BID 30 days #60 tabs 01/08/21 iron) tablet,delayed release ondansetron 4 mg disintegrating 4 mg PO Q8H PRN nausea and 07/27/21 tablet vomiting #20 tabs sennosides 8.6 mg tablet (Natural 17.2 mg PO BEDTIME constipation 08/25/21 Senna Laxative) #60 tabs cholecalciferol (vitamin D3) 50 50 mcg PO DAILY #30 caps 11/24/21 mcg (2,000 unit) capsule simethicone 125 mg capsule (Gas 125 mg PO TID-QID PRN abdominal 11/24/21 Relief (simethicone)) distention #120 caps medroxyprogesterone 10 mg tablet 10 mg PO DAILY 7 days #7 tabs 02/02/22 (Provera) Allergies Allergy/AdvReac Type Severity Reaction Status Date / Time hydrocodone [Vicodin] AdvReac Unknown vomiting Verified 11/24/21 15:26 Bactrim Allergy Unknown Unknown Uncoded 05/13/21 15:53 From Vicodin Allergy Unknown VOMITING Uncoded 05/13/21 15:53 Vicodin Allergy Unknown vomiting, Uncoded 05/13/21 15:53 nausea Review of Systems Review of Systems: Constitutional : No Fever, No Chills ENT/Mouth : No sore throat, No Rhinorrhea Eyes: No Eye Pain, No Redness Cardiovascular : No Chest Pain, No SOB Respiratory : No Cough, No Sputum, No Wheezing Gastrointestinal : no Nausea, No Vomiting, No Diarrhea, positive abdominal pain, Genitourinary : positive irregular bleeding, No Dysuria, No Urinary Frequency, positive pelvic pain Musculoskeletal : No Myalgias Skin : No rash Neuro : No Weakness, pos Headache Psych : No Anxiety/Panic, No Depression Heme/Lymph: No bruising, No Lymphadenopathy Endocrine : No Polyuria, No Polydipsia All other systems reviewed and are negative PMFSH Past Medical History Attestation statement: The following information was validated with the patient. Medical History (Updated 02/02/22 @ 23:51 by Venita Short DO) Back pain Dysfunctional uterine bleeding Gallbladder abscess IBS (irritable bowel syndrome) Menorrhagia Migraine Surgical History History of hysteroscopy Hx of tubal ligation Social History Social History Alcohol intake: never Patient Tobacco Use Status: Never used Tobacco Advance Directives: No Advance Directives Information Provided: Yes Gender identity: Female Physical Exam 2 Vital Signs: Vital Signs: Last Vital Signs Temp 96.8 F 02/02/22 19:24 Pulse 84 02/02/22 19:24 Resp 15 02/02/22 19:24 BP 104/63 02/02/22 19:24 Pulse Ox 97 02/02/22 19:24 O2 Del Method 02/02/22 19:24 BMI result Body Mass Index 29.2 Appearance: Alert. Oriented X3. No acute distress. Eyes: Pupils equal, round and reactive to light. ENT: Pharynx normal. Neck: Normal inspection. Neck supple. CVS: Normal heart rate and rhythm. Pulses normal. Respiratory: No respiratory distress. Breath sounds normal. Abdomen: Soft and nontender. : os closed, no clots noted on manual exam Skin: Skin warm and dry. Normal skin color. Normal skin turgor. Extremities: No lower extremity edema. No calf ttp Neuro: Oriented X 3. No motor deficit. No sensory deficit. MDM - Female Genitourinary MDM Narrative Medical decision making narrative: 41 yo female with hx of IBS, headaches, uterine fibroids, heavy periods, here with c/o bleeding x 1 month at this time she is not anemic she is not having a heavy flow at this time will increase her provera to 10mg for 7 days, refer to her OBGYN and offer medications for her headache. Stable for DC. Has good outpatient follow up and notes that her bleeding is improving. Lab Data Result diagrams: 02/02/22 19:33 02/02/22 19:33 Labs: Lab Results 02/02/22 02/02/22 02/02/22 Range/Units 19:33 19:33 19:33 WBC 9.9 (4.8-10.8) X10*3/uL RBC 3.35 L (4.20-5.50) X10*6/uL Hgb 10.0 L (12.0-16.0) g/dl Hct 30.7 L (37.0-47.0) % MCV 91.6 (80.0-98.0) fL MCH 29.9 (27.0-33.0) pg MCHC 32.6 (31.0-35.0) g/dl RDW 13.9 (11.0-16.0) % Plt Count 268 (160-400) X10*3/uL MPV 10.0 (9.4-12.3) fL Immature Gran % (Auto) 0.4 (0.0-0.4) % Neut % (Auto) 61.0 (45-73) % Lymph % (Auto) 30.3 (20-40) % [place]ham % (Auto) 4.5 (2-11) % Eos % (Auto) 3.3 (0-4) % Baso % (Auto) 0.5 (0-2) % Lymph # (Auto) 3.0 (1.2-4.9) X10*3/uL [place] # (Auto) 0.4 (0.1-1.2) X10*3/uL Eos # (Auto) 0.3 (0.0-0.4) X10*3/uL Baso # (Auto) 0.1 (0.0-0.2) X10*3/uL Abs Immat Gran (auto) 0.04 H (0.00-0.03) X10*3/uL Absolute Neuts (auto) 6.0 (2.0-8.3) x10*3/uL Absolute Nucleated RBC 0.000 (0.0-0.012) X10*3/uL Nucleated RBC % (auto) 0.0 (0.0-0.2) /100WBC Sodium 137 (135-145) mmol/L Potassium 3.5 (3.3-5.1) mmol/L Chloride 105 (96-108) mmol/L Carbon Dioxide 23 (22-29) mmol/L Anion Gap 13 (12-20) BUN 11 (9-16) mg/dL Creatinine 0.75 (0.5-1.4) mg/dL Estim Creat Clear Calc 86.7 Estimated GFR > 60 Random Glucose 131 H (60-115) mg/dL Calcium 8.6 D (8.4-10.2) mg/dL Total Bilirubin < 0.2 (0.0-1.0) mg/dL AST 18 (5-31) U/L ALT 21 (0-31) U/L Alkaline Phosphatase 71 (39-117) U/L Total Protein 7.1 (6.5-8.0) g/dL Albumin 4.1 (3.5-5.0) g/dL Beta HCG, Quant < 2 mIU/mL Urine Color Urine Appearance Urine pH (5.0-8.0) Ur Specific Blaine (1.005-1.025) Urine Protein (NEG-TRACE) MG/DL Urine Glucose (UA) (NEG) MG/DL Urine Ketones (NEG) MG/DL Urine Blood (NEG) Urine Nitrite (NEG) Ur Leukocyte Esterase (NEG) Urine RBC (0) /HPF Urine WBC (0-4) /HPF Ur Squamous Epith Cells /LPF Amorphous Sediment /LPF Urine Bacteria /LPF Granular Casts /LPF Urine Mucus /LPF 02/02/22 Range/Units 20:24 WBC (4.8-10.8) X10*3/uL RBC (4.20-5.50) X10*6/uL Hgb (12.0-16.0) g/dl Hct (37.0-47.0) % MCV (80.0-98.0) fL MCH (27.0-33.0) pg MCHC (31.0-35.0) g/dl RDW (11.0-16.0) % Plt Count (160-400) X10*3/uL MPV (9.4-12.3) fL Immature Gran % (Auto) (0.0-0.4) % Neut % (Auto) (45-73) % Lymph % (Auto) (20-40) % Windham % (Auto) (2-11) % Eos % (Auto) (0-4) % Baso % (Auto) (0-2) % Lymph # (Auto) (1.2-4.9) X10*3/uL [place] # (Auto) (0.1-1.2) X10*3/uL Eos # (Auto) (0.0-0.4) X10*3/uL Baso # (Auto) (0.0-0.2) X10*3/uL Abs Immat Gran (auto) (0.00-0.03) X10*3/uL Absolute Neuts (auto) (2.0-8.3) x10*3/uL Absolute Nucleated RBC (0.0-0.012) X10*3/uL Nucleated RBC % (auto) (0.0-0.2) /100WBC Sodium (135-145) mmol/L Potassium (3.3-5.1) mmol/L Chloride (96-108) mmol/L Carbon Dioxide (22-29) mmol/L Anion Gap (12-20) BUN (9-16) mg/dL Creatinine (0.5-1.4) mg/dL Estim Creat Clear Calc Estimated GFR Random Glucose (60-115) mg/dL Calcium (8.4-10.2) mg/dL Total Bilirubin (0.0-1.0) mg/dL AST (5-31) U/L ALT (0-31) U/L Alkaline Phosphatase (39-117) U/L Total Protein (6.5-8.0) g/dL Albumin (3.5-5.0) g/dL Beta HCG, Quant mIU/mL Urine Color YELLOW Urine Appearance CLEAR Urine pH 6.0 (5.0-8.0) Ur Specific Blaine <= 1.005 (1.005-1.025) Urine Protein NEG (NEG-TRACE) MG/DL Urine Glucose (UA) NEG (NEG) MG/DL Urine Ketones NEG (NEG) MG/DL Urine Blood 3+ H (NEG) Urine Nitrite NEG (NEG) Ur Leukocyte Esterase NEG (NEG) Urine RBC 10-14 H (0) /HPF Urine WBC 0-2 (0-4) /HPF Ur Squamous Epith Cells 2+ /LPF Amorphous Sediment TRACE /LPF Urine Bacteria NONE /LPF Granular Casts 0-2 /LPF Urine Mucus TRACE /LPF Discharge Plan Discharge Clinical Impression: Dysfunctional uterine bleeding Headache, migraine Qualifiers: Migraine type: unspecified Status migrainosus presence: without status migrainosus Intractability: not intractable Qualified Code(s): G43.909 - Migraine, unspecified, not intractable, without status migrainosus Patient Disposition: Home, Self-Care Instructions: Dysfunctional Uterine Bleeding (ED) Additional Instructions: return to ED for any worsening symptoms or concerns continue your iron stop taking provera 5mg follow up with your OBGYN hemoglobin 10 Prescriptions: New medroxyprogesterone [Provera] 10 mg tablet 10 mg PO DAILY 7 Days Qty: 7 0RF No Action ferrous sulfate 325 mg (65 mg iron) tablet,delayed release (DR/EC) 325 mg PO BID 30 Days Qty: 60 2RF sennosides [Natural Senna Laxative] 8.6 mg tablet 17.2 mg PO BEDTIME Qty: 60 1RF sumatriptan succinate 100 mg tablet 100 mg PO Q2-4H PRN Rx Instructions: do not exceed 2 doses per 24 hrs omeprazole 20 mg tablet,delayed release (DR/EC) 20 mg PO DAILY amitriptyline 25 mg tablet 25 mg PO DAILY Excedrin Extra Strength 250-250-65 mg tablet 2 tab PO Q6H PRN (Reason: Migraine Headache) ondansetron 4 mg tablet,disintegrating 4 mg PO Q8H PRN (Reason: nausea and vomiting) Qty: 20 0RF simethicone [Gas Relief (simethicone)] 125 mg capsule 125 mg PO TID-QID PRN (Reason: abdominal distention) Qty: 120 2RF cholecalciferol (vitamin D3) 50 mcg (2,000 unit) capsule 50 mcg PO DAILY Qty: 30 3RF Stand Alone Forms: Work/School Release
[2022-02-02] MEDS: Meclizine HCl 25 MG TABLET PO (23:38)
[2022-02-02] MEDS: Ondansetron ODT 4 MG TAB.RAPDIS TRANSLINGU (23:38)
[2022-02-02 23:49] VITALS: BP 115/56; PULSE 68; RESP 16; TEMP 36.6; O2SAT 99
[2022-02-02] MEDS: Acetaminophen 325 MG TABLET 650 MG PO (23:52)
== END 2022-02-03 00:31 | disposition home or self-care (01) ==
PROVIDERS: Emergency Provider Emergency Medicine; PCP Internal Medicine
DX: N93.8 Other specified abnormal uterine and vaginal bleeding (principal); G43.909 Migraine, unspecified, not intractable, without status migrainosus
CPT/HCPCS: 36415; 80053; 81001; 84702; 85025; 99283; 99284

== ENCOUNTER 2022-02-11 11:06 | Outpatient (REF) | payer OTHER, SELFPAY | END 2022-02-11 11:07 | disposition home or self-care (01) | LOC: HO.LAB 11:06 | PROVIDERS: Visit Provider Advanced Practice Midwife | DX: N92.0 Excessive and frequent menstruation with regular cycle (principal); N93.8 Other specified abnormal uterine and vaginal bleeding | CPT/HCPCS: 58100; 88305 ==

== ENCOUNTER 2022-02-12 13:20 | Outpatient (REF) | payer OTHER, SELFPAY ==
--- NOTE | ~2022-02-12 | US_ITS ---
EXAMINATION: US PELVIS CLINICAL INFORMATION: Excessive and frequent menstruation with irregular cycle. COMPARISON: Pelvic ultrasound dated 12/14/2020. TECHNIQUE: Ultrasound of the pelvis is performed using both transabdominal and transvaginal transducers along with Doppler. Transvaginal imaging is performed due to inadequate visualization transabdominally. FINDINGS: Uterus: Anteverted/mildly retroflexed measuring 12.2 x 4.4 x 7.1 cm. Generalized mild myometrial heterogeneity. Possible echogenic cervical spine fibroid is seen in the posterior body measuring approximately 0.8 x 0.8 cm. The individual stripe measures up to 1.0 cm at the level the fundus. A homogeneous echogenic ovoid focus is seen along the posterior margin of the endometrium at the level the fundus measuring approximately 1.0 x 0.6 cm. Color Doppler showed no abnormal vascular flow. The cervix is closed. An anechoic nabothian cyst is seen posteriorly measuring 1.5 cm. No other significant abnormality. No significant free fluid in the cul-de-sac. Right ovary: 2.5 x 2.0 x 1.9 cm with a volume of 5 mL. Doppler showed no abnormal vascular flow. Left ovary: 3.3 x 2.2 x 2.6 cm with a volume of 9.9 mL. Left adnexal anechoic cyst measuring 1.9 cm. Doppler showed no abnormal vascular flow. US/US pelvic and transvaginal IMPRESSION: 1. There is a possible submucosal fibroid in the posterior body, smaller than measured previously. The echogenic focus along the posterior margin of the endometrium at this level could represent this fibroid or an additional fibroid. An endometrial polyp cannot be completely excluded. Generalized myometrial heterogeneity is nonspecific and could be secondary to the presence of small fibroids however, can also be seen with adenomyosis. Given the patient's history and Mazor several findings, further evaluation with contrast-enhanced pelvic MRI is recommended to better characterize and localize these findings.
== END 2022-02-12 13:21 | disposition home or self-care (01) ==
LOC: HO.US 13:20
PROVIDERS: PCP Internal Medicine; Visit Provider Advanced Practice Midwife
DX: N92.0 Excessive and frequent menstruation with regular cycle (principal); N93.8 Other specified abnormal uterine and vaginal bleeding
CPT/HCPCS: 76830; 76856

== ENCOUNTER 2022-02-22 10:54 | Outpatient (REF) | payer OTHER, SELFPAY ==
[2022-02-22 17:01] LABS: CT PCR NOT DETECTED (Not Detect.); NG PCR NOT DETECTED (Not Detect.)
== END 2022-02-22 10:55 | disposition home or self-care (01) ==
LOC: HO.LAB 10:54
PROVIDERS: Visit Provider Obstetrics & Gynecology
DX: Z11.3 Encounter for screening for infections with a predominantly sexual mode of transmission (principal); N93.9 Abnormal uterine and vaginal bleeding, unspecified
CPT/HCPCS: 87491; 87591

== ENCOUNTER 2022-03-12 07:39 | Day surgery (SDC) | payer OTHER, SELFPAY ==
--- NOTE | 2022-03-02 09:18 | P.CONAN_ITS ---
Documented by User: Hanna Mondragon NP 03/18/22 08:46 HPI - Anesthesia Eval Consult details Narrative: 41yo F for D&C Hysteroscopy with uterine ablasion possible myomectomy possible polyopectomy s/p D&C hyst 12/2020 with GA-LMA 4 PMFSH Active Problems Active Problems: All Active Problems (Updated 02/22/22 @ 09:37 by Donovan Vyas MD) Abnormal uterine bleeding (AUB) (Acute) Menorrhagia (Acute) Dysfunctional uterine bleeding (Acute) Cervical cancer screening (Acute) Well woman exam with routine gynecological exam (Acute) IBS (irritable bowel syndrome) (Acute) Pelvic cramping (Acute) Potential exposure to STD (Acute) Well woman exam with routine gynecological exam (Acute) Past Medical History Medical History Back pain Dysfunctional uterine bleeding Gallbladder abscess IBS (irritable bowel syndrome) Menorrhagia Migraine Surgical History Surgical History History of hysteroscopy Hx of cholecystectomy Hx of tubal ligation History of Problems with Anesthesia: No Social History Household Members: Spouse and Children Housing: Apartment Alcohol intake: never Patient Tobacco Use Status: Never used Tobacco Current occupational status: employed 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 / [employer] Sexual orientation: Straight/Heterosexual Gender identity: Female Meds Allergies Allergy/AdvReac Type Severity Reaction Status Date / Time hydrocodone [Vicodin] AdvReac Unknown vomiting Verified 10/28/22 08:47 Bactrim Allergy Unknown Unknown Uncoded 10/28/22 08:47 Home Medications Medication Instructions Recorded Confirmed Last Taken Type amitriptyline 25 mg tablet 25 mg PO DAILY 06/05/20 06/11/22 Unknown History omeprazole 20 mg tablet,delayed 20 mg PO DAILY 06/05/20 06/11/22 01/23/21 06:00 History release sumatriptan succinate 100 mg tablet 100 mg PO Q2-4H PRN 06/05/20 06/11/22 U nknown History [id number]-npswuafbdivzq-foruslzc 250 2 tab PO Q6H PRN Migraine Headache 01/21/21 06/11/22 01/21/21 History mg-250 mg-65 mg tablet (Excedrin Extra Strength) cyclobenzaprine 15 mg 15 mg PO DAILY 02/11/22 06/11/22 Unknown History capsule,extended release 24 hr naratriptan 1 mg tablet 1 mg PO Q4H PRN 02/11/22 06/11/22 Unknown History Exam Exam Date and Time: March 02, 2022 0918 Pertinent Lab Results Pertinent Lab Results: Laboratory Tests 02/02/22 02/02/22 19:33 19:33 WBC 9.9 Hgb 10.0 L Hct 30.7 L Plt Count 268 Sodium 137 Potassium 3.5 Chloride 105 Carbon Dioxide 23 BUN 11 Creatinine 0.75 Narrative Narrative: EKG 06/2021 Vent. Rate : 077 BPM ? ? Atrial Rate : 077 BPM ?? P-R Int : 180 ms? QRS Dur : 084 ms ? ? QT Int : 410 ms ? ? ? P-R-T Axes : 067 073 042 degrees ?? QTc Int : 463 ms ? Normal sinus rhythm Normal ECG When compared with ECG of 04-MAR-2018 08:19, No significant change was found Assessment and Plan Assessment Anesthesia Assessment: Chart Reviewed Final Anesthetic Review History of Problems with Anesthesia: No Documented by User: Aj Arnold MD 05/20/23 00:33 HPI - Anesthesia Eval Consult details Narrative: 41yo F for D&C Hysteroscopy with uterine ablasion possible myomectomy possible polyopectomy s/p D&C hyst 12/2020 with GA-LMA 4 neck pain and back pain with radiculopathy PMFSH Past Medical History Medical History Back pain Dysfunctional uterine bleeding Gallbladder abscess IBS (irritable bowel syndrome) Menorrhagia Migraine Functional capacity: independent ambulation Family History Family history of problems with anesthesia: No Surgical History Surgical History History of hysteroscopy Hx of cholecystectomy Hx of tubal ligation Social History Household Members: Spouse and Children Housing: Apartment Alcohol intake: never Patient Tobacco Use Status: Never used Tobacco Current occupational status: employed 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 / [employer] Sexual orientation: Straight/Heterosexual Gender identity: Female Meds Allergies Allergy/AdvReac Type Severity Reaction Status Date / Time hydrocodone [Vicodin] AdvReac Unknown vomiting Verified 10/28/22 08:47 Bactrim Allergy Unknown Unknown Uncoded 10/28/22 08:47 Home Medications Medication Instructions Recorded Confirmed Last Taken Type amitriptyline 25 mg tablet 25 mg PO DAILY 06/05/20 06/11/22 Unknown History omeprazole 20 mg tablet,delayed 20 mg PO DAILY 06/05/20 06/11/22 01/23/21 06:00 History release sumatriptan succinate 100 mg tablet 100 mg PO Q2-4H PRN 06/05/20 06/11/22 Unknown History [id number]-lxsbadpdcrhpj-ujbpqtty 250 2 tab PO Q6H PRN Migraine Headache 01/21/21 06/11/22 01/21/21 History mg-250 mg-65 mg tablet (Excedrin Extra Strength) cyclobenzaprine 15 mg 15 mg PO DAILY 02/11/22 06/11/22 Unknown History capsule,extended release 24 hr naratriptan 1 mg tablet 1 mg PO Q4H PRN 02/11/22 06/11/22 Unknown History Exam Airway Mallampati Class: II Loose/Missing/Broken Teeth: Yes Assessment and Plan Assessment Anesthesia Assessment: Anesthesia Plan Discussed Final Anesthetic Review Family History of Problems with Anesthesia: No NPO: Yes ASA Class: II Final Preanesthetic Review: Meds/Allgs Chart Reviewed, Consent Obtained/Reviewed and Anes Risks/Benef Reviewed Patient Risk: Intermediate Procedure Risk: Intermediate Anesthetic Plan Anesthetic Plan: GA and Agree w/ Assess. and Plan Disposition: Standard PACU
[2022-03-12] VITALS (7 sets, daily range): BP systolic 108–121; BP diastolic 63–76; PULSE 71–85; RESP 15–16; TEMP 36.3–36.4; O2SAT 97–100; BMI 29.6
[2022-03-12 08:19] LABS: UPreg QC Valid YES; Urine Pregnancy NEGATIVE (NEGATIVE)
[2022-03-12] MEDS: Lactated Ringers 1,000 ML 100 ML IVCONT (08:44)
--- NOTE | 2022-03-12 08:55 | MHC.SHP ---
Pre-Procedural Eval Section A Date of Service: 03/12/22 The patient is an INPATIENT: No Changes since office visit: No Cold of Flu in the past 2 weeks, No New Medical Problems, No Changes in Medication and No Patient answered all questions The History & Physical has been completed within 30 days and I have reviewed it.: Yes Section B Chief Complaint: bleeding Allergies: Allergies Allergy/AdvReac Type Severity Reaction Status Date / Time hydrocodone [Vicodin] AdvReac Unknown vomiting Verified 02/22/22 09:16 Bactrim Allergy Unknown Unknown Uncoded 02/22/22 09:16 Plan Diagnosis/Plan: Unchanged I have reviewed the history and physical and performed a pertinent physical examination on my patient. No changes have occurred unless specified.
--- NOTE | 2022-03-12 09:34 | P.BOP_ITS ---
Brief Operative Note Date of Service: 03/12/22 Pre-op diagnosis: Abnormal uterine bleeding and anemia Post-op diagnosis: same (Normal endometrial cavity/endocervical canal) Procedure: Hysteroscopy D&C NovaSure endometrial ablation Surgeon: Donovan Vyas MD Anesthesia: MAC Was an [facility] Administrator used for this Procedure?: No Estimated blood loss (mL): 0 Pathology: other (Endometrial Scrapping. ) Condition: stable Disposition: PACU
--- NOTE | 2022-03-12 09:41 | P.OP_ITS ---
Operative Note Operative Note Date of Service: 03/12/22 Narrative: Preop Diagnosis: Abnormal uterine bleeding, anemia Operation: Diagnostic Hysteroscopy, Dilataion & Curettage, NovaSure endometrial ablation Post Op Diagnosis: Normal endometrial cavity QBL: Minimal Anesthesia: GA LMA Surgeon: Donovan Vyas MD Property Coordinator: None Complication: None Pathology: Endometrial Scrapings Procedure: The patient was put in the dorsal lithotomy position, scrubbed, and draped in the usual manner. A sterile speculum was inserted in the patient's vagina. The anterior lip of the cervix was grasped with a single tooth tenaculum. The cervix was dilated up to 5 mm, then the scope was inserted in the patient's uterus. Inspection revealed Normal endometrial cavity. The Myosure Reach device was used; . At the end of the procedure, all instruments were taken out of the patient uterine and vaginal cavity. Sharp curetting was carried on with moderate amount of tissues retrieved. Taking care not to enter deep into the uterus, a sound was passed inside to measure the length of the uterus and cervix. This length was found to be 8 cm. This yielded an endometrial cavity length of 6.5 cm. The Novasure device was then opened and tested; the fan deployed easily. The instrument was set to the correct cavity length and introduced into the uterine cavity. The fan was slowly deployed with gentle movements to ensure a snug fit within the cavity. The cavity width read 4.0 cm. The measurements were imported and a cavity check was done. The trumpet was then slid down to the cervix and the device was activated. The total burn time was 80 seconds. The fan was retracted and device removed. The fan was examined and revealed charred tissue. The tenaculum was removed and the cervix examined for hemostasis which was achieved using pressure. Finally the speculum was removed. The patient tolerated the procedure well and was brought to the recovery room in a stable condition. At the end of the procedure all sponges and instruments were counted and correct. The blood loss was minimal and there were no c omplications.?
== END 2022-03-12 10:55 | disposition home or self-care (01) ==
PROVIDERS: Visit Provider Obstetrics & Gynecology
PROC: 0UDB8ZZ Extraction of Endometrium, Via Natural or Artificial Opening Endoscopic (ICD-10-PCS; CPT 58558; principal; 2022-03-12 09:00)
DX: N93.8 Other specified abnormal uterine and vaginal bleeding (principal); N85.4 Malposition of uterus; D64.9 Anemia, unspecified; K58.9 Irritable bowel syndrome, unspecified; Z88.8 Allergy status to other drugs, medicaments and biological substances
CPT/HCPCS: 58563; 81025; 88305; J0131; J1100; J2250; J2405; J3010

== ENCOUNTER 2022-03-31 17:00 | Outpatient (RCR) | payer OTHER, SELFPAY | END 2022-04-09 13:39 | disposition home or self-care (01) | LOC: HO.PT 17:00 | PROVIDERS: PCP Internal Medicine; Visit Provider Internal Medicine | DX: M54.41 Lumbago with sciatica, right side (principal); M54.42 Lumbago with sciatica, left side | CPT/HCPCS: 97110; 97140; 97161 ==

== ENCOUNTER 2022-04-06 16:10 | Outpatient (REF) | payer OTHER, SELFPAY ==
--- NOTE | ~2022-04-06 | MM_ITS ---
EXAMINATION: MM SCREENING DIGITAL BREAST TOMOSYNTHESIS, BILATERAL CLINICAL INFORMATION: Screening. Asymptomatic. The lifetime risk of breast cancer based on the Tyrer-Cuzick Model is 7%. COMPARISON: Mammography: 08/25/2020 (baseline). TECHNIQUE: Digital breast tomosynthesis is performed in both the craniocaudal and mediolateral oblique views along with computer-aided detection (CAD). Synthesized 2D images are generated from the tomosynthesis. FINDINGS: There are scattered areas of fibroglandular density (ACR BI-RADS breast composition Category b). Parenchymal pattern is similar to prior baseline exam. There is no significant mass or architectural abnormality or abnormal calcifications. The skin contours are smooth. No significant changes. MM/MM tomosynthesis screening BI IMPRESSION: No mammographic evidence of malignancy. ASSESSMENT: BI-RADS 1: Negative RECOMMENDATION: Routine annual mammography screening. This patient's information was entered into a reminder system with a target due date for their next mammogram.
== END 2022-04-06 16:11 | disposition home or self-care (01) ==
LOC: HO.MAMMO 16:10
PROVIDERS: Visit Provider Obstetrics & Gynecology
DX: Z12.31 Encounter for screening mammogram for malignant neoplasm of breast (principal)
CPT/HCPCS: 77063; 77067

== ENCOUNTER 2022-04-13 08:34 | Outpatient (REF) | payer OTHER, SELFPAY ==
[2022-04-13 17:58] LABS: CT PCR NOT DETECTED (Not Detect.); NG PCR NOT DETECTED (Not Detect.)
[2022-04-14 09:20] LABS: BV Int Neg Control Negative (Negative); BV Int Pos Control Positive (Positive)
== END 2022-04-13 08:35 | disposition home or self-care (01) ==
LOC: HO.LNP 08:34
PROVIDERS: Visit Provider Obstetrics & Gynecology
DX: Z11.3 Encounter for screening for infections with a predominantly sexual mode of transmission (principal); N93.9 Abnormal uterine and vaginal bleeding, unspecified
CPT/HCPCS: 87480; 87491; 87510; 87591; 87660

== ENCOUNTER 2022-06-11 15:45 | Outpatient (REF) | payer OTHER, SELFPAY ==
[2022-06-13 14:22] LABS: BV Int Neg Control Negative (Negative); BV Int Pos Control Positive (Positive)
== END 2022-06-11 15:46 | disposition home or self-care (01) ==
LOC: HO.LNP 15:45
PROVIDERS: Visit Provider Advanced Practice Midwife
DX: Z20.2 Contact with and (suspected) exposure to infections with a predominantly sexual mode of transmission (principal)
CPT/HCPCS: 87480; 87510; 87660

== ENCOUNTER 2022-07-03 06:41 | Emergency (ER) | payer OTHER, SELFPAY ==
--- NOTE | ~2022-07-03 | CT_ITS ---
EXAMINATION: CT ABDOMEN AND PELVIS WITH CONTRAST CLINICAL INFORMATION: Right lower quadrant tenderness and pain COMPARISON: CT abdomen and pelvis with IV contrast 03/07/2019. TECHNIQUE: Multidetector volumetric images were obtained from the superior aspect of the liver through the pubic symphysis following administration 85 mL of Omnipaque 350 intravenous contrast. Sagittal and coronal reformatted images were obtained on the technologist's workstation. Oral contrast: No This CT examination was performed using dose optimization techniques as appropriate, variously including the following: *Automated exposure control *Adjustment of mA and/or kV according to patient size (this includes techniques or standardized protocols for targeted exams where dose is matched to indication/reason for exam; i.e. extremities or head) *Use of iterative reconstruction technique DLP: 548 mGy-cm FINDINGS: LUNG BASES: The visualized lung bases are unremarkable. LIVER, GALLBLADDER, AND BILIARY TREE: The liver is normal in size, shape, and attenuation. No focal hepatic lesion or biliary ductal dilatation is present. The gallbladder has been surgically removed. PANCREAS: Unremarkable. SPLEEN: Unremarkable. ADRENAL GLANDS: Unremarkable. KIDNEYS AND URETERS: The kidneys are normal in size, shape, and attenuation. No hydronephrosis, hydroureter, or calculi seen. No perinephric stranding. BLADDER: Unremarkable. GASTROINTESTINAL TRACT: There is scattered stool and gas seen in the colon without significant distention. The small bowel loops are normal caliber. Appendix is normal caliber. No free air or inflammatory process seen.. ABDOMINAL WALL: A small lacunar hernia containing fat is noted. LYMPH NODES: Normal. VASCULAR: Unremarkable. PELVIC VISCERA: There is a hypoechoic nonenhancing lesion right adnexa measuring 4.5 x 2.6 x 4.2 cm likely right ovarian cyst. Previously it measured 3.8 x 3.2 cm and was complex. There is a left ovarian 1.9 cm cyst image 54/3. Previously it measured 1.3 cm. There are several nabothian cysts with the largest cyst measuring 1.5 cm. There is no free fluid in the pelvis. Small shotty lymph nodes are seen in bilateral inguinal region similar previous study OSSEOUS STRUCTURES: No aggressive lytic or sclerotic process seen. CT/CT abdomen pelvis w IV con IMPRESSION: There is a right adnexal cyst which have slightly grown in size since 2019. There is a 1.9 sinuses left ovary. Previously measured 1.3 cm. Several cervical nabothian cysts with the largest cyst measuring 1.5 cm. Mild constipation with a normal appendix. No radiopaque urolith or hydronephrosis. Fleischner guidelines were followed.
[2022-07-03 06:46] VITALS: BP 110/57; PULSE 77; RESP 16; TEMP 36.1; O2SAT 97; BMI 29.8
[2022-07-03 07:04] VITALS: BP 108/67; PULSE 73; RESP 16; TEMP 36.6; O2SAT 98
[2022-07-03 07:14] LABS: MANUAL DIFF FLAG NO
[2022-07-03 07:34] LABS: Basophils Absolute Auto 0.1 X10*3/uL (0.0-0.2); Basophils Percent Auto 0.4 % (0-2); Eosinophils Absolute Auto 0.4 X10*3/uL (0.0-0.4); Hematocrit 36.2 % (37.0-47.0); Hemoglobin 12.1 g/dl (12.0-16.0); Imm Gran Abs Auto 0.04 X10*3/uL (0.00-0.03); Imm Gran Pct Auto 0.3 % (0.0-0.4); Lymphocytes Absolute Auto 2.5 X10*3/uL (1.2-4.9); Lymphocytes Percent Auto 20.4 % (20-40); Mean Corpuscular HGB Conc 33.4 g/dl (31.0-35.0); Mean Corpuscular Hemoglobin 30.2 pg (27.0-33.0); Mean Corpuscular Volume 90.3 fL (80.0-98.0); Mean Platelet Volume 9.6 fL (9.4-12.3); Monocytes Absolute Auto 0.7 X10*3/uL (0.1-1.2); Monocytes Percent Auto 5.6 % (2-11); Neutrophils Absolute Auto 8.6 x10*3/uL (2.0-8.3); Neutrophils Percent Auto 70.3 % (45-73); Platelet Count 281 X10*3/uL (160-400); Red Blood Count 4.01 X10*6/uL (4.20-5.50); Red Cell Distribution Width 13.2 % (11.0-16.0); White Blood Count 12.2 X10*3/uL (4.8-10.8)
--- NOTE | 2022-07-03 07:38 | ED_ITS ---
HPI - Abdominal Pain General Chief Complaint: Abdominal Pain Stated Complaint: abd pain Time Seen by Provider: 07/03/22 07:20 Source: patient Mode of arrival: ambulatory Limitations: no limitations History of Present Illness HPI narrative: 41-year-old female who presents emergency department for evaluation of right lower quadrant abdominal pain which started yesterday. She states the pain came on suddenly in the morning. Patient has been constant since onset but waxes and wanes in intensity. She states the pain is currently 9/10. The pain is a constant, burning sensation which is worse with movement. The patient had chills but no fever. She states she had nausea but no vomiting. Patient has IBS and she states that she often has constipation and diarrhea. She denies any dark tarry stools or bloody stools. She has had some urinary frequency but no dysuria. She took ibuprofen last night with no relief of her pain. She states the pain was worse this morning therefore she came to emergency department for evaluation. Past surgical history significant for cholecystectomy Related Data Home Medications Medication Instructions Recorded Confirmed amitriptyline 25 mg tablet 25 mg PO DAILY 06/05/20 06/11/22 omeprazole 20 mg tablet,delayed 20 mg PO DAILY 06/05/20 06/11/22 release sumatriptan succinate 100 mg tablet 100 mg PO Q2-4H PRN 06/05/20 06/11/22 [id number] 250 2 tab PO Q6H PRN Migraine Headache 01/21/21 06/11/22 mg-250 mg-65 mg tablet (Excedrin Extra Strength) cyclobenzaprine 15 mg 15 mg PO DAILY 02/11/22 06/11/22 capsule,extended release 24 hr naratriptan 1 mg tablet 1 mg PO Q4H PRN 02/11/22 06/11/22 Previous Rx's Medication Instructions Recorded ondansetron 4 mg disintegrating 4 mg PO Q8H PRN nausea and 07/27/21 tablet vomiting #20 tabs sennosides 8.6 mg tablet (Natural 17.2 mg PO BEDTIME constipation 08/25/21 Senna Laxative) #60 tabs cholecalciferol (vitamin D3) 50 50 mcg PO DAILY #30 caps 11/24/21 mcg (2,000 unit) capsule simethicone 125 mg capsule (Gas 125 mg PO TID-QID PRN abdominal 11/24/21 Relief (simethicone)) distention #120 caps ferrous sulfate 325 mg (65 mg 325 mg PO BID 30 days #60 tabs 03/04/22 iron) tablet,delayed release terconazole 0.8 % vaginal cream 1 appful vaginal BEDTIME 3 days 04/13/22 #20 grams metronidazole 0.75 % (37.5 mg/5 1 appful vaginal BID 5 days #70 06/11/22 gram) vaginal gel grams fluconazole 150 mg tablet 150 mg PO DAILY 1 dose #1 tab 06/15/22 (Diflucan) ondansetron 4 mg disintegrating 4 mg PO Q6-8H PRN nausea and 07/03/22 tablet vomiting #14 tabs oxycodone 5 mg tablet 5 mg PO Q4H PRN pain #14 tabs 07/03/22 Allergies Allergy/AdvReac Type Severity Reaction Status Date / Time hydrocodone [Vicodin] AdvReac Unknown vomiting Verified 06/11/22 15:20 Bactrim Allergy Unknown Unknown Uncoded 06/11/22 15:20 Review of Systems Review of Systems Yes all other systems are reviewed and are negative [facility] Past Medical History [facility] Narrative: social history: She denies tobacco, alcohol and drug use. 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 / [employer] Sexual orientation: Straight/Heterosexual Gender identity: Female Physical Exam ED Vital Signs: Vital Signs - 24 hr 07/03/22 06:46 07/03/22 07:04 07/03/22 09:18 Temperature 97.0 F 97.8 F 97.8 F Pulse Rate 77 73 72 Respiratory Rate 16 16 16 Blood Pressure 110/57 L 108/67 112/68 Pulse Oximetry 97 98 96 Oxygen Delivery Method Room Air Room Air Room Air BMI result Body Mass Index 29.8 Const General: cooperative and no acute distress Orientation/consciousness: oriented to person and oriented to place Limitations: no limitations HENMT Head: Yes normal to inspection, Yes normocephalic and Yes atraumatic Ears: external ears normal General nose exam: Normal external nose present Face and sinus: Yes normal facial exam Mouth: Normal oral and palatal mucosa present Throat: Yes posterior oropharynx normal Eyes General: appearance normal, both eyes and all related structures Pupils: Equal, round and reactive pupils present Neck Neck: Yes normal visual inspection, Yes no lymphadenopathy, Yes trachea midline and Yes supple Chest Chest palpation & inspection: normal inspection of the chest and normal palpation of entire chest wall Resp Effort & Inspection: normal respiratory effort and able to speak in complete sentences Auscultation: clear to auscultation bilaterally Cardio Rate: regular rate Rhythm: regular rhythm Heart sounds: S1 normal heart sound present, S2 normal heart sound present and no murmurs GI Inspection: Yes normal to inspection Palpation (GI): Soft to palpation, Tenderness to palpation present (GI) in the RLQ ( Moderate to severe), at McBurney's point and psoas sign positive ( with movement of the right leg) and no guarding Auscultation: normal bowel sounds General: Yes no CVA tenderness Back/Spine/Pelvis Back: no CVA tenderness Skin General skin exam: no rashes or lesions noted Neuro General: oriented to person and oriented to place Cranial nerves: Yes Equal, round and reactive pupils present Cognition (Neuro): normal cognition Extrem General: Yes normal to inspection Psych Appearance: grossly normal Speech and movement: Normal speech and movement present Affect: normal affect Attitude: cooperative Thought process: Normal thought process present Medical Decision Making Medical Decision Making MDM Narrative: 41-year-old female who presents emergency department for evaluation of 2 days of right lower quadrant pain. The pain came on suddenly yesterday and has been waxing and waning since then, pain is currently 8/10. Patient states the pain does travel down her right leg. Patient does have significant right lower quadrant tenderness in the area of McBurney's point and she does have pain with movement of her right leg ( psoas sign ). I ordered laboratory evaluation to include CBC, CMP, lipase, quantitative beta-hCG, urinalysis. I will obtain a CT scan of the abdomen pelvis with IV contrast to evaluate the patient's pain. Patient was ordered to get normal saline IV x1 L. Her pain and nausea was treated with Toradol 15 mg IV and Zofran 4 mg IV. 1023: My interpretation laboratory and radiology evaluation is as follows: CBC was normal. CMP was normal. quantitative beta hCG was below detectable limits. Urinalysis was negative. CT scan of the patient's abdomen pelvis with IV contrast revealed a right ovarian cyst which was larger than in seen on a CT scan in 2019, appendix appeared to be normal, multiple cervical nabopthiann cysts, no other significant acute findings. At this time I do not have a clear etiology for the patient's pain, may be secondary to expanding ovarian cyst doubly secondary to hemorrhage in the cyst. I did discuss this finding with the patient. The patient will be discharged home inches eyes take ibuprofen Tylenol for pain as well as oxycodone. Also prescribed Zosyn ODT for her nausea. I did credit risk specialist if her pain was not completely better in 24 hours or if it was worse she should return to the emergency department for re-evaluation otherwise she is to follow-up with her doctor in 2 days. Differential Diagnosis differential diagnosis includes was not limited to appendicitis, renal colic, ureteral stone, IBS, diverticulitis, abdominal pain of unclear etiology Lab Data [facility] Lab Attestation statement: I reviewed the patient's lab results. Please see [facility] for my interpretation 07/03/22 07:10 07/03/22 07:10 Labs: Lab Results 07/03/22 07/03/22 07/03/22 Range/Units 07:10 07:10 07:42 WBC 12.2 H (4.8-10.8) X10*3/uL RBC 4.01 L (4.20-5.50) X10*6/uL Hgb 12.1 D (12.0-16.0) g/dl Hct 36.2 L (37.0-47.0) % MCV 90.3 (80.0-98.0) fL MCH 30.2 (27.0-33.0) pg MCHC 33.4 (31.0-35.0) g/dl RDW 13.2 (11.0-16.0) % Plt Count 281 (160-400) X10*3/uL MPV 9.6 (9.4-12.3) fL Immature Gran % (Auto) 0.3 (0.0-0.4) % Neut % (Auto) 70.3 (45-73) % Lymph % (Auto) 20.4 (20-40) % Forrest % (Auto) 5.6 (2-11) % Eos % (Auto) 3.0 (0-4) % Baso % (Auto) 0.4 (0-2) % Lymph # (Auto) 2.5 (1.2-4.9) X10*3/uL Forrest # (Auto) 0.7 (0.1-1.2) X10*3/uL Eos # (Auto) 0.4 (0.0-0.4) X10*3/uL Baso # (Auto) 0.1 (0.0-0.2) X10*3/uL Abs Immat Gran (auto) 0.04 H (0.00-0.03) X10*3/uL Absolute Neuts (auto) 8.6 H (2.0-8.3) x10*3/uL Absolute Nucleated RBC 0.000 (0.0-0.012) X10*3/uL Nucleated RBC % (auto) 0.0 (0.0-0.2) /100WBC Sodium 136 (135-145) mmol/L Potassium 3.9 (3.3-5.1) mmol/L Chloride 103 (96-108) mmol/L Carbon Dioxide 24 (22-29) mmol/L Anion Gap 13 (12-20) BUN 14 (9-16) mg/dL Creatinine 0.68 (0.5-1.4) mg/dL Estim Creat Clear Calc 96.6 Estimated GFR > 60 Random Glucose 86 (60-115) mg/dL Calcium 9.2 D (8.4-10.2) mg/dL Total Bilirubin 0.4 (0.0-1.0) mg/dL AST 22 (5-31) U/L ALT 23 (0-31) U/L Alkaline Phosphatase 80 (39-117) U/L Total Protein 7.0 (6.5-8.0) g/dL Albumin 4.0 (3.5-5.0) g/dL Lipase 12 (8-78) U/L Beta HCG, Quant < 2 mIU/mL Urine Color Yellow Urine Appearance Clear Urine pH 6.0 (5.0-9.0) Ur Specific [place] 1.015 (1.005-1.025) Urine Protein Negative (Neg-Trace) mg/dL Urine Glucose (UA) Negative (Negative) mg/dL Urine Ketones Negative (Negative) mg/dL Urine Blood Negative (Negative) Urine Nitrite Negative (Negative) Ur Leukocyte Esterase Negative (Negative) Radiology Impression Discussion of test interpretation with radiology: I have reviewed the radiologis t's reading. Radiologist Impression: IMPRESSION: There is a right adnexal cyst which have slightly grown in size since 2019. There is a 1.9 sinuses left ovary. Previously measured 1.3 cm. Several cervical nabothian cysts with the largest cyst measuring 1.5 cm. Mild constipation with a normal appendix. No radiopaque urolith or hydronephrosis. Fleischner guidelines were followed. Dictated By:Slick Mcdermott MDSigned By:<Electronically signed by Slick Mcdermott MD in [place]>07/03/22 0903 External Record Review External record reviewed: Outside ED record ( [place] prescription monitoring program -patient had 1 prescription for lorazepam) Medications Administered Discontinued Medications Generic Name Dose Route Start Last Admin Trade Name Freq PRN Reason Stop Dose Admin Sodium Chloride 1,000 mls @ 999 mls/hr 07/03/22 07:38 07/03/22 08:22 Ns IV 07/03/22 08:38 999 mls/hr .Q1H1M STA Administration Iohexol 100 ml 07/03/22 08:39 07/03/22 08:39 Iohexol 350 Mg/Ml 100 Ml Infus..Btl IV 07/03/22 08:40 85 ml ONCE ONE Administration Ketorolac Tromethamine 15 mg 07/03/22 07:38 07/03/22 08:22 Ketorolac Tromethamine 15 Mg/Ml Vial IVPUSH 07/03/22 07:39 15 mg ONCE STA Administration Ondansetron HCl 4 mg 07/03/22 07:38 07/03/22 08:22 Ondansetron Hcl 4 Mg/2 Ml Vial IVPUSH 01/07/23 07:39 4 mg ONCE ONE Administration Discharge Plan Discharge Clinical Impression: Cyst of right ovary Abdominal pain Qualifiers: Abdominal location: right lower quadrant Qualified Code(s): R10.31 - Right lower quadrant pain Patient Disposition: Home, Self-Care Instructions: Ovarian Cyst (ED) Additional Instructions: Your blood work was unremarkable. Your urinalysis was negative. Your test was negative. The CT scan of the abdomen pelvis revealed a right ovary cyst which was seen in 2019 but the cyst appears to be larger. Sometimes you can bleeding into an ovarian cyst with assist can expand and this can cause pain. This usually does not require surgery but you should follow-up with your OBGYN for re-evaluation of this cyst. Take ibuprofen 200 mg pills, 2 pills every 6 hours as needed for pain. Take Tylenol (acetaminophen) 500 mg pills, 2 pills every 4-6 hours as needed for pain. For pain not relieved by ibuprofen or Tylenol take oxycodone 5 mg pills, 1 pill every 4 hours as needed for pain. Do not drive or work while taking this medication since they can cause sleepiness. Oxycodone is a narcotic medication that can be addicting. If you are concerned about addiction you can ask the pharmacist for less pills or do not get this prescription filled. Take Zofran ODT 4 mg pills, 1 pill dissolved in your mouth every 8 hours as needed for nausea and vomiting. If your pain is worse or if you are not significantly better in 24 hours then you should return to the emergency department so that we can re-evaluate you for appendicitis. Follow-up with your doctor in 2 days. Please return to the emergency department if your symptoms get worse or if you develop any symptoms that are concerning to you. Prescriptions: New ondansetron 4 mg tablet,disintegrating 4 mg PO Q6-8H PRN (Reason: nausea and vomiting) Qty: 14 0RF oxycodone 5 mg tablet 5 mg PO Q4H PRN (Reason: pain) Qty: 14 0RF Rx Instructions: Patient may request partial fill; Partial Fill upon patient request. No Action sennosides [Natural Senna Laxative] 8.6 mg tablet 17.2 mg PO BEDTIME Qty: 60 1RF ferrous sulfate 325 mg (65 mg iron) tablet,delayed release (DR/EC) 325 mg PO BID 30 Days Qty: 60 2RF fluconazole [Diflucan] 150 mg tablet 150 mg PO DAILY Qty: 1 0RF Rx Instructions: administer on day 1 of therapy sumatriptan succinate 100 mg tablet 100 mg PO Q2-4H PRN Rx Instructions: do not exceed 2 doses per 24 hrs omeprazole 20 mg tablet,delayed release (DR/EC) 20 mg PO DAILY amitriptyline 25 mg tablet 25 mg PO DAILY Excedrin Extra Strength 250-250-65 mg tablet 2 tab PO Q6H PRN (Reason: Migraine Headache) ondansetron 4 mg tablet,disintegrating 4 mg PO Q8H PRN (Reason: nausea and vomiting) Qty: 20 0RF simethicone [Gas Relief (simethicone)] 125 mg capsule 125 mg PO TID-QID PRN (Reason: abdominal distention) Qty: 120 2RF cholecalciferol (vitamin D3) 50 mcg (2,000 unit) capsule 50 mcg PO DAILY Qty: 30 3RF cyclobenzaprine 15 mg capsule,extended release 24hr 15 mg PO DAILY naratriptan 1 mg tablet 1 mg PO Q4H PRN Rx Instructions: do not exceed 3 doses per 24 hrs terconazole 0.8 % cream 1 appful vaginal BEDTIME 3 Days Qty: 20 0RF metronidazole 0.75 % (37.5mg/5 gram) gel 1 appful vaginal BID 5 Days Qty: 70 0RF
[2022-07-03 07:48] LABS: Appearance Urine Clear; Color Urine Yellow; Glucose Urine UA Negative (Negative); Leukocyte Esterase Urine Negative (Negative); Nitrite Urine Negative (Negative); Specific Gravity - Urine 1.015 (1.005-1.025); Urine Blood Negative (Negative); Urine Ketones Negative (Negative); Urine Protein Negative (Neg-Trace)
--- NOTE | 2022-07-03 08:04 | PC.NURSE ---
PT IS A/O X 4 NO SOB/ALVINA NOTED SPEAKS IN FULL SENTENCES. LUNGS - CTA. HEART SOUNDS REGULAR. ABD SOFT TENDER RLQ (ABD) BS + X 4 QUADS; NO EDEMA NOTED. PT AWARE OF PLAN OF CARE.
[2022-07-03 08:06] LABS: Alanine Aminotransferase 23 U/L (0-31); Alkaline Phosphatase 80 U/L (39-117); Anion Gap 13 (12-20); Aspartate Amino Transferase 22 U/L (5-31); Bilirubin Total 0.4 mg/dL (0.0-1.0); Blood Urea Nitrogen 14 mg/dL (9-16); Calcium 9.2 mg/dL (8.4-10.2); Carbon Dioxide 24 mmol/L (22-29); Chloride 103 mmol/L (96-108); Creatinine Clr Calc Pharmacy 96.6; Estimated Glomerular Filt Rate > 60; Glucose Random 86 mg/dL (60-115); HCG Quantitative < 2 mIU/mL; Lipase 12 U/L (8-78); Potassium 3.9 mmol/L (3.3-5.1); Sodium 136 mmol/L (135-145)
[2022-07-03] MEDS: Ketorolac Tromethamine 15 MG/ML VIAL IVPUSH (08:22)
[2022-07-03] MEDS: 0.9 % Sodium Chloride 1,000 ML 999 ML IV (08:22)
[2022-07-03] MEDS: ondansetron HCL 4 MG/2 ML VIAL IVPUSH (08:22)
[2022-07-03] MEDS: iohexoL 350 MG/ML 100 ML INFUS..BTL IV (08:39)
[2022-07-03 09:18] VITALS: BP 112/68; PULSE 72; RESP 16; TEMP 36.6; O2SAT 96
== END 2022-07-03 11:25 | disposition home or self-care (01) ==
PROVIDERS: Emergency Provider Emergency Medicine Emergency Medical Services; PCP Internal Medicine
DX: N83.291 Other ovarian cyst, right side (principal); R10.31 Right lower quadrant pain
CPT/HCPCS: 36415; 74177; 80053; 81003; 83690; 84702; 85025; 96361; 96374; 96375; 99284; J1885; J2405; Q9967

== ENCOUNTER 2022-08-19 14:17 | Outpatient (REF) | payer OTHER, SELFPAY ==
[2022-08-19 18:21] LABS: CT PCR NOT DETECTED (Not Detect.); NG PCR NOT DETECTED (Not Detect.)
== END 2022-08-19 14:18 | disposition home or self-care (01) ==
LOC: HO.LNP 14:17
PROVIDERS: PCP Internal Medicine; Visit Provider Obstetrics & Gynecology
DX: R10.2 Pelvic and perineal pain (principal); Z32.02 Encounter for pregnancy test, result negative
CPT/HCPCS: 0353U; 81025

== ENCOUNTER 2022-09-03 15:59 | Outpatient (REF) | payer OTHER, SELFPAY ==
--- NOTE | ~2022-09-03 | US_ITS ---
EXAMINATION: US PELVIS CLINICAL INFORMATION: Pelvic and perineal pain. COMPARISON: CT abdomen and pelvis 07/03/2022. TECHNIQUE: Ultrasound of the pelvis was performed using both transabdominal and transvaginal transducers along with Doppler. Transvaginal imaging was performed due to inadequate visualization transabdominally. FINDINGS: Uterus: The uterus is anteverted and measures 9.2 x 4.5 x 5.7 cm. The double wall endometrial thickness is 0.8 mm. There is a small, hyperechoic area seen adjacent to the endometrial cavity in the uterine wall that measures 6 x 5 x 9 mm, similar to appearances at the time of the prior study, and was thought to represent a submucosal fibroid. Nabothian cysts are present in the cervix. Adnexa: Both ovaries are visualized. There is normal color flow to the adnexa. There is no ovarian torsion. There is no pelvic ascites or fluid collection. Right ovary measures 4.1 x 1.7 x 2.1 cm for a volume of 7.7 mL. A few punctate calcifications are seen but the ovary otherwise appears normal. The previously seen 4.6 x 2.6 x 4.1 cm right ovarian cyst is no longer present. Left ovary measures 5.0 x 2.7 x 3.4 cm for a volume of 24 mL and contains two cysts measuring 3.8 x 2.4 x 3.3 cm and 1.5 x 1.8 x 1.8 cm. On the prior CT, a single 2.0 cm cyst was noted in the left ovary. US/US pelvic and transvaginal IMPRESSION: 1. Resolved right ovarian cyst. 2. Enlarging benign-appearing left ovarian cysts. These are benign in appearance and should need no additional follow up. 3. Stable small submucosal uterine fibroid.
== END 2022-09-03 16:00 | disposition home or self-care (01) ==
LOC: HO.US 15:59
PROVIDERS: PCP Internal Medicine; Visit Provider Obstetrics & Gynecology
DX: R10.2 Pelvic and perineal pain (principal)
CPT/HCPCS: 76830; 76856

== ENCOUNTER → 2022-10-28 08:41 | Outpatient (BNVA) | payer OTHER, SELFPAY | PROVIDERS: PCP Internal Medicine; Visit Provider Obstetrics & Gynecology ==

== ENCOUNTER 2022-12-02 16:15 | Outpatient (REF) | payer OTHER, SELFPAY ==
--- NOTE | ~2022-12-02 | XR_ITS ---
EXAMINATION: XR HAND, RIGHT CLINICAL INFORMATION: Pain right hand x 3 weeks. COMPARISON: None available. TECHNIQUE: PA, lateral, and oblique views of the right hand. FINDINGS: The bones and soft tissues are normal. No fracture. Alignment is anatomic. Joint spaces are maintained. No erosions or soft tissue calcifications. XR/XR hand RT min 3V IMPRESSION: Normal right hand.
== END 2022-12-02 16:16 | disposition home or self-care (01) ==
LOC: HO.HHCX 16:15
PROVIDERS: Visit Provider Internal Medicine
DX: M79.641 Pain in right hand (principal)
CPT/HCPCS: 73130

== ENCOUNTER 2023-08-31 08:27 | Outpatient (REF) | payer OTHER, SELFPAY ==
[2023-08-31 12:40] LABS: Vitamin B12 494 pg/mL (200-900)
[2023-08-31 13:57] LABS: Alanine Aminotransferase 17 U/L (0-31); Albumin Level 4.1 g/dL (3.5-5.0); Alkaline Phosphatase 69 U/L (39-117); Anion Gap 11 (12-20); Aspartate Amino Transferase 16 U/L (5-31); Bilirubin Direct 0.1 mg/dL (0.0-0.5); Bilirubin Total 0.3 mg/dL (0.0-1.0); Blood Urea Nitrogen 9 mg/dL (9-16); Calcium 9.4 mg/dL (8.4-10.2); Carbon Dioxide 29 mmol/L (22-29); Chloride 103 mmol/L (96-108); Cholesterol 197 mg/dL (<200); Estimated Glomerular Filt Rate > 60; Glucose Random 84 mg/dL (60-115); HDL Cholesterol 48 mg/dL (>40); LDL Cholesterol Calculated 122 mg/dL (<100); Sodium 139 mmol/L (135-145); Total Protein 7.3 g/dL (6.5-8.0); Triglycerides 137 mg/dL (<150); Vitamin D 25-OH Total 29.3 ng/mL (>30)
== END 2023-08-31 08:28 | disposition home or self-care (01) ==
LOC: HO.HHCL 08:27
PROVIDERS: Visit Provider Internal Medicine
DX: Z13.6 Encounter for screening for cardiovascular disorders (principal); R00.2 Palpitations
CPT/HCPCS: 36415; 80053; 80061; 82248; 82306; 82607

== ENCOUNTER 2023-09-16 15:46 | Outpatient (AMB) | payer OTHER, SELFPAY ==
--- NOTE | 2023-09-16 15:54 | A.OFFVIS_ITS ---
Intake Vital Signs 09/16/23 15:57 Height 5 ft 1 in Weight 150 lb BMI 28.3 BP 100/56 L Blood Pressure Location Lt brachial Position Sitting Pulse 74 Intake Visit Reasons: Abdominal bloating PT N/S for 06/18 F/U Intake Note: Patient follow up for abdominal bloating. Patient cc: abdominal pain on her upper middle abdominal pain and left abdominal side with pain, acid reflex with burning sensation, gassy, between diarrhea and constipation. [employer] Required: No Accompanied by: Self / Same As Patient Allergies hydrocodone [Vicodin] Adverse Reaction (Unknown, Verified 09/16/23 15:54) vomiting Bactrim Allergy (Unknown, Uncoded 10/28/22 08:47) Unknown HPI Abdominal bloating PT N/S for 06/18 F/U HPI Details LAST VISIT IBS (irritable bowel syndrome) Postprandial abdominal bloating and cramping. . Patient does report to be constipated for the most part. Patient reports that very rarely she will have loose stools. FODMAP diet discussed with patient again. Discussed with her tr will elimination diet if she is unable to go and follow list of food that is recommended as well as list of food to avoid. Patient was encouraged to eat smaller meals and more often. GERD (gastroesophageal reflux disease) Discussed with patient again avoiding dietary triggers and late night snacking. Patient can continue omeprazole for now. Patient was encouraged to stay upright for minimal 3 hours after meals. Abdominal bloating Patient reports frequent abdominal bloating specially postprandially. Patient states that she frequently be constipated. Most likely this is related to the food that she eats. Patient is eating a lot of Brazilian food. Patient was encouraged to try elimination diet is see if this is going to be helpful. Eating smaller meals and more often. I will send her for more testing. Will check pancreatic elastase. I will send her script for simethicone. Patient states that she has not been taking it lately. I will see her in 3 months. Patient will call me sooner if she will have any GI concerning symptoms. Patient is agreeable to this plan and verbalizes understanding of instructions. She was given the opportunity to ask questions and all questions answered. ? Thank you for allowing me to participate in her care Plan Orders Orders Pancreatic Elastase-1 Today R10.9 Referrals Bariatric Surgery Referral E66.3 Medications Refilled simethicone (Gas Relief (simethicone)) 125 mg PO TID-QID PRN 120 caps 2RF abdominal distention cholecalciferol (vitamin D3) 50 mcg PO DAILY 30 caps 3RF R79.89 Discontinued docusate sodium Discontinued Reason: Duplicate 100 mg PO BEDTIME 30 caps 3RF K59.00 polyethylene glycol 3350 (Miralax) Discontinued Reason: Patient no longer taking 17 grams PO DAILY 30 ea 3RF TODAY'S VISIT: Patient is here today for follow-up, however she missed couple of last appointment. Patient continues to have epigastric discomfort postprandially. Denies any nausea or vomiting. Reports dyspepsia without dysphagia or odynophagia. Patient is taking omeprazole on as needed basis. Patient states that she is trying to avoid dietary triggers. Patient tried to change her diet. Last few lb since last visit. Wishes not to follow-up with bariatric services at this time. Patient reports that she is moving her bowels well and take Senokot on as needed basis. Patient denies any melena, hematochezia, unintentional weight loss or ribbon like stools. Frequent postprandial abdominal bloating. Tried following low FODMAP diet. Has a list at home but is requesting another list today. Patient will before he 3 years old in about couple weeks and would also like to go for colonoscopy. Patient denies any family history of colorectal cancer. No family history of IBD. Denies any issues with anesthesia in the past. Not taking any anticoagulation medication except for Excedrin that has aspirin in it. Patient was encouraged to stop taking it 1 week before procedure and use Tylenol instead. Patient denies any history of sleep apnea. No cardiac or respiratory symptoms. 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 Sexual orientation: Straight/Heterosexual Gender identity: Female Female Reproductive History Menstrual Age of Menarche: 10 Review of Systems Const Denies weight gain and Denies weight loss ENT Reports no additional complaints, Denies dysphagia and Denies odynophagia Card Reports no additional complaints Resp Reports no additional complaints GI Reports abdominal pain, Denies belching, Denies melena, Reports bloating, Denies change in bowel habits, Reports constipation (Occasional), Denies dysphagia, Denies excessive flatus, Reports dyspepsia, Reports heartburn, Denies diarrhea, Denies loose stools, Denies nausea, Denies odynophagia and Denies vomiting Reports no additional complaints Musc Reports no additional complaints Neuro Reports no additional complaints Psych Reports no additional complaints Endo Reports no additional complaints Physical Exam Vital Signs: Last Vital Signs Pulse 74 09/16/23 15:57 BP 100/56 L 09/16/23 15:57 BMI result Body Mass Index 28.3 Const General: healthy appearing, no acute distress and well developed Nutritional Appearance: well nourished Orientation/consciousness: patient oriented x3 Resp Effort & Inspection: normal respiratory effort, able to speak in complete sentences, no tracheal deviation and symmetric chest movement Auscultation: clear to auscultation bilaterally Cardio Rate: regular rate GI Inspection: Yes normal to inspection and No distended Palpation (GI): Soft to palpation, not firm, nontender and No hepatosplenomegaly present Auscultation: normal bowel sounds General: Yes no CVA tenderness Back/Spine/Pelvis Back: no CVA tenderness Skin General skin exam: elasticity normal, turgor normal and dry skin Neuro General: patient oriented x3 Psych Appearance: grossly normal Mental Status: mental status grossly normal Assessment & Plan Assessment & Plan (1) IBS (irritable bowel syndrome): Code(s): K58.9 - Irritable bowel syndrome without diarrhea Qualifiers: Irritable bowel syndrome type: with both diarrhea and constipation Qualified Code(s): K58.2 - Mixed irritable bowel syndrome (2) GERD (gastroesophageal reflux disease): Code(s): K21.9 - Gastro-esophageal reflux disease without esophagitis Qualifiers: Esophagitis presence: esophagitis presence not specified Qualified Code(s): K21.9 - Gastro-esophageal reflux disease without esophagitis (3) Abdominal bloating: Code(s): R14.0 - Abdominal distension (gaseous) (4) Screen for colon cancer: Code(s): Z12.11 - Encounter for screening for malignant neoplasm of colon (5) Postprandial abdominal bloating: Code(s): R14.0 - Abdominal distension (gaseous) (6) Left upper quadrant pain: Code(s): R10.12 - Left upper quadrant pain Plan Patient will continue taking omeprazole. Discussed with patient avoiding d ietary triggers and late night snacking. Patient will be sent for upper endoscopy to rule out esophagitis, gastritis, duodenitis, gastric or peptic ulcers, H pylori, Brewster's. Patient will be sent for colonoscopy as she will be doing couple weeks. Patient denies having any family history of colorectal cancer. No issues with anesthesia in the past. No history of sleep apnea. Avoid NSAIDs and aspirin 1 week before procedure. What to expect before during and after procedure discussed with patient. Stressed the importance of good bowel prep as well as clear liquid diet day before procedure. I will see patient after the procedure, sooner on as needed basis. Patient is agreeable to this plan and verbalizes understanding of instructions. She was given the opportunity to ask questions and all questions answered. Thank you for allowing me to participate in her care Medications: New bisacodyl (Dulcolax (bisacodyl)) take 4 tabs at noon the day before your colonoscopy 20 mg (4 x 5 mg) PO ONCE 1 day 4 tabs 0RF Z12.11 - Encounter for screening for malignant neoplasm of co ovi polyethylene glycol 3350 (Miralax) As directed by gastroenterology department at [facility] 238 grams PO ONCE 238 grams 0RF Z12.11 - Encounter for screening for malignant neoplasm of colon Discontinued ondansetron Discontinued Reason: Doctor's Order 4 mg PO Q8H PRN 20 tabs 0RF nausea and vomiting R11.0 - Nausea Coding Level of Care Code Est Pt Level 4 (92461) Diagnoses Irritable bowel syndrome with both constipation and diarrhea K58.2 Irritable bowel syndrome type: with both diarrhea and constipation Gastroesophageal reflux disease, unspecified whether esophagitis present K21.9 Esophagitis presence: esophagitis presence not specified Abdominal bloating R14.0 Screen for colon cancer Z12.11 Postprandial abdominal bloating R14.0 Left upper quadrant pain R10.12 Time Spent (min) 40 Comment 25 minutes spent with patient and additional 15 minutes spent reviewing her records
[2023-09-16 15:57] VITALS: BP 100/56; PULSE 74; BMI 28.3
== END 2023-09-16 16:30 | disposition home or self-care (01) ==
PROVIDERS: PCP Internal Medicine; Visit Provider Nurse Practitioner Family
DX: K58.2 Mixed irritable bowel syndrome (principal); K21.9 Gastro-esophageal reflux disease without esophagitis; R14.0 Abdominal distension (gaseous); Z12.11 Encounter for screening for malignant neoplasm of colon; R10.12 Left upper quadrant pain
CPT/HCPCS: 99214

== ENCOUNTER → 2023-09-16 15:46 | Outpatient (BNVA) | payer OTHER, SELFPAY | PROVIDERS: PCP Internal Medicine; Visit Provider Nurse Practitioner Family ==

== ENCOUNTER 2023-10-14 09:12 | Outpatient (REF) | payer OTHER, SELFPAY | END 2023-10-14 09:13 | disposition home or self-care (01) | LOC: HO.HOSX 09:12 | PROVIDERS: Visit Provider Physician Assistant | DX: Z13.89 Encounter for screening for other disorder (principal) ==

== ENCOUNTER 2023-11-07 11:01 | Outpatient (REF) | payer OTHER, SELFPAY ==
--- NOTE | ~2023-11-07 | XR_ITS ---
EXAMINATION: XR SHOULDER, RIGHT CLINICAL INFORMATION: Right shoulder pain. COMPARISON: None available. TECHNIQUE: Three views of the right shoulder. FINDINGS: Alignment is anatomic. Mild degenerative changes in the acromioclavicular joint. No fracture or suspicious osseous lesion. The visualized right chest is clear. XR/XR shoulder RT min 2V IMPRESSION: Mild osteoarthritis of the acromioclavicular joint.
== END 2023-11-07 11:02 | disposition home or self-care (01) ==
LOC: HO.HOSX 11:01
PROVIDERS: Visit Provider Physician Assistant
DX: M25.511 Pain in right shoulder (principal)
CPT/HCPCS: 73030

== ENCOUNTER 2023-11-07 14:51 | Outpatient (AMB) | payer OTHER, SELFPAY ==
--- NOTE | 2023-11-07 15:10 | MHC.OFFVIS ---
Vital Signs 11/07/23 15:17 Height 5 ft 1 in Weight 150 lb BMI 28.3 Intake Visit Reasons: R Shoulder Pain, no injury Intake Note: Zenobia a 43 year old 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 female who presents today as a new patient for an evaluation of right shoulder pain. Patient reports feeling bone on bone rubbing in her shoulder. States pain increases with movement and her shoulder becomes stuck. Limited ROM, stating unable to reach behind her back. Hx of fibromyalga. Hx of mild arthritis in her cervical. No previous tx. Allergies hydrocodone [Vicodin] Adverse Reaction (Unknown, Verified 11/07/23 15:32) vomiting Bactrim Allergy (Unknown, Uncoded 11/07/23 15:32) Unknown HPI HPI R Shoulder Pain, no injury: Details: 43-year-old 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 female who presents to the office today for evaluation of right shoulder pain for about 7 months. She states she has ?bone on bone rubbing? pain as well as limited ROM in her shoulder which is aggravated with movement, sleeping and in cold weathers. She also experiences difficulty with reaching her back and reports locking in her shoulder. She denies any injury and has not had any treatment in the past. She takes ibuprofen for her pain. She has a history of fibromyalgia. 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 Sexual orientation: Straight/Heterosexual Gender identity: Female Female Reproductive History Menstrual Age of Menarche: 10 Review of Systems Const All systems reviewed & are unremarkable except as noted in HPI and below Physical Exam Vital Signs: BMI result Body Mass Index 28.3 Const General: cooperative, healthy appearing, comfortable, no acute distress, well developed and alert Orientation/consciousness: patient oriented x3 HEENT Head: Yes normal to inspection, Yes normocephalic and Yes atraumatic Eyes General: appearance normal, both eyes and all related structures Resp Effort & Inspection: normal respiratory effort and able to speak in complete sentences Cardio Rate: regular rate Peripheral pulses: Peripheral pulses 2+ throughout GI Palpation (GI): Soft to palpation Skin Lesions: no lesions Rashes: no rashes Neuro General: patient oriented x3 Extrem Other: Right shoulder normal to inspection. Tenderness over the bicipital groove and along the deltoid region of the shoulder. Forward flexion to 175, external rotation to 90, internal rotation to S1. 5/5 RTC strength. Positive Ojnes and O'Briens. NVI. Results Reviewed Results Reviewed: Xrays were obtained in the office today and personally reviewed by me of the right shoulder negative for acute or chronic abnormalities Assessment & Plan Assessment & Plan (1) Tendinitis of right rotator cuff: Code(s): M75.81 - Other shoulder lesions, right shoulder Category: Medical (2) Biceps tendonitis on right: Code(s): M75.21 - Bicipital tendinitis, right shoulder Category: Medical Plan We discussed options which include PT, NSAIDs and injections. The patient will defer on the injection today and proceed with PT and NSAIDs. If symptoms persist, the patient will contact me for an injection, otherwise, PRN. Orders: Orders XR shoulder RT min 2V Today M25.511 - Pain in right shoulder PT Evaluation and Treatment Today M75.21 - Bicipital tendinitis, right shoulder, M75.81 - Other shoulder lesions, right shoulder Patient Instructions: Scribed for Nirali Park PA-C, by Varghese Rai chief medical officer, on 10/26/2023 at 2:45 PM EST. I, Nirali Park PA-C, have personally reviewed and agree with the information entered by the scribe. Coding Level of Care Code New Pt Level 3 (56936) Diagnoses Tendinitis of right rotator cuff M75.81 Biceps tendonitis on right M75.21
[2023-11-07 15:17] VITALS: BMI 28.3
== END 2023-11-07 15:48 | disposition home or self-care (01) ==
PROVIDERS: PCP Internal Medicine; Visit Provider Physician Assistant
DX: M75.81 Other shoulder lesions, right shoulder (principal); M75.21 Bicipital tendinitis, right shoulder
CPT/HCPCS: 99203

== ENCOUNTER 2024-01-25 11:25 | Outpatient (REF) | payer OTHER, SELFPAY ==
[2024-01-25 13:16] LABS: MANUAL DIFF FLAG NO
[2024-01-25 13:28] LABS: Basophils Percent Auto 0.5 % (0-2); Eosinophils Absolute Auto 0.4 X10*3/uL (0.0-0.4); Eosinophils Percent Auto 4.7 % (0-4); Hematocrit 38.9 % (37.0-47.0); Hemoglobin 12.7 g/dl (12.0-16.0); Imm Gran Abs Auto 0.02 X10*3/uL (0.00-0.03); Imm Gran Pct Auto 0.3 % (0.0-0.4); Lymphocytes Absolute Auto 2.6 X10*3/uL (1.2-4.9); Lymphocytes Percent Auto 34.9 % (20-40); Mean Corpuscular HGB Conc 32.6 g/dl (31.0-35.0); Mean Corpuscular Hemoglobin 30.5 pg (27.0-33.0); Mean Corpuscular Volume 93.3 fL (80.0-98.0); Mean Platelet Volume 10.5 fL (9.4-12.3); Monocytes Absolute Auto 0.4 X10*3/uL (0.1-1.2); Monocytes Percent Auto 5.7 % (2-11); Neutrophils Percent Auto 53.9 % (45-73); Platelet Count 271 X10*3/uL (160-400); Red Blood Count 4.17 X10*6/uL (4.20-5.50); Red Cell Distribution Width 12.9 % (11.0-16.0); White Blood Count 7.5 X10*3/uL (4.8-10.8)
[2024-01-25 14:04] LABS: Iron 85 mcg/dL (30-160); Percent Iron Saturation 24 % (15-50); TSH reflex Free T4 1.51 uIU/mL (0.32-4.0); Total Iron Binding Capacity 354 mcg/dL (228-428); Unsaturated Iron Binding 269 ug/dL
[2024-01-25 14:19] LABS: Folate 13.2 ng/mL (> or = 4.0); Vitamin B12 558 pg/mL (200-900)
== END 2024-01-25 11:26 | disposition home or self-care (01) ==
LOC: HO.HHCL 11:25
PROVIDERS: Visit Provider Internal Medicine
DX: R53.83 Other fatigue (principal)
CPT/HCPCS: 36415; 82607; 82746; 83540; 84443; 85025

== ENCOUNTER 2024-03-16 16:49 | Outpatient (REF) | payer OTHER, SELFPAY ==
[2024-03-17 08:45] LABS: Bacterial Vaginosis PCR NEGATIVE (Negative); Candida Group PCR NOT DETECTED (Not Detect); Candida glab krusei PCR DETECTED (Not Detect); Trichomonas vaginalis PCR NOT DETECTED (Not Detect)
== END 2024-03-16 16:50 | disposition home or self-care (01) ==
LOC: HO.HHCLNP 16:49
PROVIDERS: Visit Provider Internal Medicine
DX: N92.1 Excessive and frequent menstruation with irregular cycle (principal); Z20.2 Contact with and (suspected) exposure to infections with a predominantly sexual mode of transmission
CPT/HCPCS: 0352U

== ENCOUNTER 2024-07-24 17:37 | Outpatient (REF) | payer MEDICAID, SELFPAY ==
[2024-07-26 11:54] LABS: Bacterial Vaginosis PCR NEGATIVE (Negative); Candida Group PCR NOT DETECTED (Not Detect); Candida glab krusei PCR DETECTED (Not Detect); Trichomonas vaginalis PCR NOT DETECTED (Not Detect)
[2024-07-26 18:25] LABS: CT PCR NOT DETECTED (Not Detect.); NG PCR NOT DETECTED (Not Detect.)
== END 2024-07-24 17:38 | disposition home or self-care (01) ==
LOC: HO.HHCLNP 17:37
PROVIDERS: Visit Provider Internal Medicine
DX: R10.31 Right lower quadrant pain (principal)
CPT/HCPCS: 81515; 87491; 87591

== ENCOUNTER 2024-10-30 08:36 | Outpatient (REF) | payer MEDICAID, SELFPAY ==
--- NOTE | 2024-10-30 08:39 | EMG_ITS ---
Left median and ulnar motor and sensory studies were performed. Left radial sensory study was performed and left median and lateral antecubital brachial sensory studies were performed. Paraspinal muscles were tested with a needle. IMPRESSION: 1. Bnvz-yh-wvzeilsp left median neuropathy across carpal tunnel. 2. Mild left ulnar neuropathy across cubital tunnel. MD RICHARD Noe/FORD / [phone]
--- OUTSIDE RECORDS SUMMARY | 2024-10-30 09:02 | XMS_ITS | Encounter Summary ---
Author Organization [employer] Address [address] [place] [address] Care Team Providers Care Napper Runner Name Role Phone Dixie Duke MD Primary Care Provide r Reason for Visit * Reason Onset Date Comments Med Refill 10/26/2024 Encounter Details Date Type Department Care Team (Late st Contact Info) Description 10/26/2024 Refill [facility] [address] [place], [place] [phone] Dixie Duke MD [address] [place], [place] [phone] Chronic migraine without aura without status migrainosus, not intractable Social History Tobacco Use Types Packs/Day Years Used Date Smoking Tobacco: Never Passive Smoke Exposure: Never Smokeless Tobacco: Never Alcohol Use Standard Drinks/Week Comments Never 0 (1 standard drink = 0.6 oz pur e alcohol) Depression Answer Date Recorded Patient Health Questionnaire-9 Score 0 12/01/2023 Patient Health Questionnaire-9 Score 0 12/01/2023 Last PHQ-9: Questionnaire Data Not on file 0 12/01/2023 Housing Stability Answer Date Recorded What is your housing situation today? I have housing today, but I am worried about losing housing in the future 12/01/[address] you li ve. Do you have problems with any of the following? None of the above 12/01/2023 Food Insecurity Answer Date Recorded Within the past 12 months, y ou worried that your food would run out before you got money to buy more: Never True 12/01/2023 Within the past 12 months,th e food you bought just didn't last and you didn't have enough money to get more: Never True 11/2023 Transportation Answer Date Recorded In the past 12 months, has l ack of transportation kept you from medical appts, meetings, work or from getting things needed for daily living? No 12/01/2023 Utilities Answer Date Recorded In the past 12 months, has t he electric, gas, oil or water company threatened to shut off services in your home? No 12/01/2023 Depression Answer Date Recorded Patient Health Questionnaire-2 Score 0 12/01/2023 Comments Unknown Sex and Gender Information Value Date Recorded Sex Assigned at Female 04/26/2022 10:15 AM EDT Legal Sex Female 10:15 AM EDT Gender Identity Female 04/26/2022 10:15 AM EDT Sexual Orientation Straight 04/26/2022 10 :15 AM EDT documented as of this encounter Plan of Treatment Not on file documented as of this encounter Visit Diagnoses Diagnosis Chronic migraine without aura without status migrainosus, not intractable documented in this encounter Additional Health Concerns Assessment Noted Time PHQ-9 Depression Total Score: 0 12/01/19 24 3:26 PM EDT documented as of this encounter Care Teams Napper Runner Relationship Specialty Start Date End Date Dixie Duke MD [address] [place] [phone] PCP - General Family Medicine 08/04/20 documented as of this encounter
--- OUTSIDE RECORDS SUMMARY | 2024-10-30 09:02 | XMS_ITS | Encounter Summary ---
Author Organization [employer] Address [address] [place] [address] Care Team Providers Care Mortgage Branch Manager Name Role Phone Dixie Duke MD Primary Care Provide r Encounter Details Date Type Department Care Team (Latest Contact Info) Description 08/06/2022 Orders Only [facility] [address] [place], [place] [phone] Rebekah Lopes MD [address] [place] [address] Hypertriglyceridemia (Primary Dx) Social History Tobacco Use Types Packs/Day Years Used Date Smoking Tobacco: Never Smokeless Tobacco: Never Comments Unknown Sex and Gender Information Value Date Recorded Sex Assigned at Female 04/26/2022 10:15 AM EDT Legal Sex Female 10:15 AM EDT Gender Identity Female 04/26/2022 10:15 AM EDT Sexual Orientation Straight 04/26/2022 10 :15 AM EDT documented as of this encounter Plan of Treatment Not on file documented as of this encounter Visit Diagnoses Diagnosis Hypertriglyceridemia- Primary Pure hyperglyceridemia documented in this encounter Care Teams Mortgage Branch Manager Relationship Specialty Start Date End Date Dixie Duke MD [address] [place] [address] PCP - General Family Medicine 08/04/20 documented as of this encounter
--- OUTSIDE RECORDS SUMMARY | 2024-10-30 09:02 | XMS_ITS | Encounter Summary ---
Author Organization [employer] Address [address] [place] [address] Care Team Providers Care Scale Assembly Set Up Worker Name Role Phone Dixie Duke MD Primary Care Provide r Encounter Details Date Type Department Care Team (Late st Contact Info) Description 07/06/2022 Orders Only [facility] [address] [place], [place] [phone] Glory Waggoner, ANP [address] [place] [address] Social History Tobacco Use Types Packs/Day Years Used Date Smoking Tobacco: Never Assessed Comments Unknown Sex and Gender Information Value Date Recorded Sex Assigned at Female 04/26/2022 10:15 AM EDT Legal Sex Female 10:15 AM EDT Gender Identity Female 04/26/2022 10:15 AM EDT Sexual Orientation Straight 04/26/2022 10 :15 AM EDT documented as of this encounter Plan of Treatment Not on file documented as of this encounter Visit Diagnoses Not on filedocumented in this encounter Care Teams Scale Assembly Set Up Worker Relationship Specialty Start Date End Date Dixie Duke MD [address] [place], [place] [phone] PCP - General Family Medicine 08/04/20 documented as of this encounter
--- OUTSIDE RECORDS SUMMARY | 2024-10-30 09:02 | XMS_ITS | Encounter Summary ---
Author Organization [employer] Address [address] [facility] [address] [place] [address] Care Team Providers Care Saturation Diver Name Role Phone Dixie Duke MD Primary Care Provide r Reason for Visit * Reason Comments Med Refill Encounter Details Date Type Department Care Team ([facility] st Contact Info) Description 10/12/2022 Refill [facility] MEDICINE [address] [place] [address] Cindy Swenson DO 230 [place] [address] Social History Tobacco Use Types Packs/Day Years Used Date Smoking Tobacco: Never Smokeless Tobacco: Never Depression Answer Date Recorded Patient Health Questionnaire-9 Score 0 10/13/2022 Depression Answer Date Recorded Patient Health Questionnaire-2 Score 0 10/13/2022 Comments Unknown Sex and Gender Information Value Date Recorded Sex Assigned at Female 04/26/2022 10:15 AM EDT Legal Sex Female 10:15 AM EDT Gender Identity Female 04/26/2022 10:15 AM EDT Sexual Orientation Straight 04/26/2022 10 :15 AM EDT COVID-19 Exposure Response Date Recorded In the last 10 days, have yo u been in contact with someone who was confirmed or suspected to have Coronavirus/COVID-19? No / Unsure 10/13/2022 1:47 PM EDT documented as of this encounter Plan of Treatment Not on file documented as of this encounter Visit Diagnoses Not on filedocumented in this encounter Care Teams Saturation Diver Relationship Specialty Start Date End Date Dixie Duke MD [address] [place] [address] PCP - General Family Medicine 08/04/20 documented as of this encounter
--- OUTSIDE RECORDS SUMMARY | 2024-10-30 09:02 | XMS_ITS | Encounter Summary ---
Author Organization [employer] Address [address] [address] [place] [address] Care Team Providers Care Meter Shop Superintendent Name Role Phone Dixie Duke MD Primary Care Provide r Reason for Visit * Reason Onset Date Comments Med Refill 10/26/2024 Encounter Details Date Type Department Care Team (Late st Contact Info) Description 10/26/2024 Refill [facility] MEDICINE [address] [place] [address] Dixie Duke MD [address] [place] [address] Migraine with aura and without status migrainosus, not intractable Social History [...] as of this encounter Visit Diagnoses Diagnosis Migraine with aura and without status migrainosus, not intractable documented in this encounter Additional Health Concerns Assessment Noted Time PHQ-9 Depression Total Score: 0 12/01/19 24 3:26 PM EDT documented as of this encounter Care Teams Meter Shop Superintendent Relationship Specialty Start Date End Date Dixie Duke MD [address] [place] [phone] PCP - General Family Medicine 08/04/20 documented as of this encounter
--- OUTSIDE RECORDS SUMMARY | 2024-10-30 09:02 | XMS_ITS | Encounter Summary ---
Author Organization [employer] Address [address] [facility] [address] [address] [place] [address] Care Team Providers Care Assembly Cleaner Name Role Phone Dixie Duke MD Primary Care Provide r Reason for Visit * Reason Comments Med Refill Encounter Details Date Type Department Care Team ([facility] st Contact Info) Description 03/08/2024 Refill [facility] MED & PEDS [address] [place], [place] [phone] Zachariah Dao MD [address] [place] [address] Migraine with aura and without status migrainosus, [...] documented as of this encounter Care Teams Assembly Cleaner Relationship Specialty Start Date End Date Dixie Duke MD [address] [place] [phone] PCP - General Family Medicine 08/04/20 documented as of this encounter
--- OUTSIDE RECORDS SUMMARY | 2024-10-30 09:02 | XMS_ITS | Encounter Summary ---
Author Organization [employer] Address [address] [facility] [address] [place] [address] Care Team Providers Care Parts Assembler Name Role Phone Dixie Duke MD Primary Care Provide r Encounter Details Date Type Department Care Team (Late st Contact Info) Description 03/23/2024 Orders Only [facility] MEDICINE [address] [place], [place] [phone] Dixie Duke MD [address] [place] [address] Social History Tobacco Use Types Packs/Day Years [...] Diagnoses Not on filedocumented in this encounter Additional Health Concerns Assessment Noted Time PHQ-9 Depression Total Score: 0 12/01/19 24 3:26 PM EDT documented as of this encounter Care Teams Parts Assembler Relationship Specialty Start Date End Date Dixie Duke MD [address] [place] [address] PCP - General Family Medicine 08/04/20 documented as of this encounter
--- OUTSIDE RECORDS SUMMARY | 2024-10-30 09:02 | XMS_ITS | Encounter Summary ---
Author Organization [employer] Address [address] [place] [address] Care Team Providers Care Tonal Regulator Name Role Phone Dixie Duke MD Primary Care Provide r Encounter Details Date Type Department Care Team (Late st Contact Info) Description 07/02/2022 Orders Only [facility] MED & PEDS [address] [place], [place] [phone] Cindy Brewster LPN Social History Tobacco Use Types Packs/Day Years [...] on file documented as of this encounter Procedures Procedure Name Priority Date/Time Associated Diagnosis Comments URINALYSIS WITH REFLEX MICROSCOPIC Routine 07/03/2022 7:42 AM EST CBC WITH AUTO DIFFERENTIAL Routine 07/03/2022 7:10 AM EST HCG, TOTAL, QN Routine 07/03/2022 7:10 AM EST LIPASE Routine 07/03/2022 7:10 AM EST COMPREHENSIVE METABOLIC PANEL Routine 07/03/2022 7:10 AM EST documented in this encounter Results * Urinalysis with reflex microscopic (07/03/2022 7:42 AM EST) Color Urine Yellow [facility] Appearance Urine Clear [facility] PH 6.0 5.0 - 9.0 [facility] Glucose Urine UA Negative Negative mg/dL [facility] Urine Blood Negative Negative [facility] Specific [place] - Urine 1.015 1.005 - 1.025 [facility] Urine Protein Negative Neg-Trace mg/dL [facility] Urine Ketones Negative Negative mg/dL [facility] Nitrite Urine Negative Negative [facility] Leukocyte Esterase Urine Negative Negative [facility] 07/03/2022 7:42 AM EST 07/03/2022 7:44 AM EST Narrative [facility] - 07/03/2022 7:49 AM EST [id number], Clean Catch [facility] External Provider LAB URI NE ORDERABLES Final Result [facility] [address] [place] [phone] * HCG, Total, Quantitative (07/03/2022 7:10 AM EST) HCG Quantitative <2 mIU/mL [facility] Comment:Weeks post LMP Appro ximate hCG(Last Menstrual Period) Range (mIU/ml)3 - 4 weeks 9 - 1304 - 5 weeks 75 - 2,6005 - 6 weeks 850 - 20,8006 - 7 weeks 4000 - 100,2007 - 12 weeks 11,500 - 289,87030 - 16 weeks 18,300 - 137,32532 - 29 weeks (2nd trimester) 1,400 - 53,31922 - 41 weeks (3rd trimester) 940 - 60,000The [place] B- hCG assay is used for the early detection ofpregnancy; it cannot be used to diagnose any conditionunrelated to . If a B-hCG level is not supportedby the clinical evidence, results should be confirmed by analternative method (qualitative urine hCG, for example). 07/03/2022 7:10 AM EST 07/03/2022 7:12 AM EST [facility] External Provider LAB BLO OD ORDERABLES Final Result Performing Organization Address [facility] Co de Phone Number [facility] [address] [place] [address] [phone] * Lipase (07/03/2022 7:10 AM EST) Lipase 12 8 - 78 U/L [facility] 07/03/2022 7:10 AM EST 07/03/2022 7:12 AM EST [facility] External Provider LAB BLO OD ORDERABLES Final Result Performing Organization Address [facility] Phone Number [facility] [address] [place] [address] [phone] * Comprehensive Metabolic Panel (07/03/2022 7:10 AM EST) Sodium 136 135 - 145 mmol/L [facility] Potassium 3.9 3.3 - 5.1 mmol/L [facility] Comment:Slight Hemolysis Chloride 103 96 - 108 mmol/L [facility] Carbon Dioxide 24 22 - 29 mmol/L [facility] Anion Gap 13 12 - 20 [facility] Urea Nitrogen (BUN) 14 9 - 16 mg/dL [facility] Creatinine, Serum 0.68 0.5 - 1.4 mg/dL [facility] Creatinine Clr Calc Pharmacy 96.6 [facility] Comment:Provided height and weight: 154.94 cm,71.668 kg.eGFR (calculated from the MDRD study equation) and eCrCl(calculated from the Cockcroft-Gault equation) are based ondifferent parameters and may not yield comparable results.If eCrCl result is absurd, please check patient'sheight/weight. Estimated Glomerular Filt Rate >60 [facility] Comment:NOTE: For -Am erican individuals, multiply the result by 1.210.Chronic Kidney Disease: Estimated GFR < 60 mL/min/1.36t5Ymulxa Kidney Disease: Estimated GFR < 15 mL/min/1.73m2 Glucose 86 60 - 115 mg/dL [facility] Calcium 9.2 8.4 - 10.2 mg/dL [facility] Bilirubin, Total 0.4 0.0 - 1.0 mg/dL [facility] Aspartate Amino Transferase 22 5 - 31 U/L [facility] Comment:Slight Hemolysis Alanine Aminotransferase 23 0 - 31 U/L [facility] Total Protein 7.0 6.5 - 8.0 g/dL [facility] Albumin Level 4.0 3.5 - 5.0 g/dL [facility] Alkaline Phosphatase 80 39 - 117 U/L [facility] 07/03/2022 7:10 AM EST 07/03/2022 7:12 AM EST [facility] External Provider LAB BLO OD ORDERABLES Final Result [facility] [address] [place] [phone] * (ABNORMAL) CBC auto differential (07/03/2022 7:10 AM EST) White Blood Count 12.2(H) 4.8 - 10.8 X10*3/uL [facility] Red Blood Count 4.01(L) 4.20 - 5.50 X10*6/uL [facility] Hemoglobin 12.1 12.0 - 16.0 g/dl [facility] Hematocrit 36.2(L) 37.0 - 47.0 % [facility] Mean Corpuscular Volume 90.3 80.0 - 98.0 fL [facility] Mean Corpuscular Hemoglobin 30.2 27.0 - 33.0 pg [facility] Mean Corpuscular HGB Conc 33.4 31.0 - 35.0 g/dl [facility] Red Cell Distribution Width 13.2 11.0 - 16.0 % [facility] Platelet Count 281 160 - 400 X10*3/uL [facility] Mean Platelet Volume 9.6 9.4 - 12.3 fL [facility] Neutrophils Percent Auto 70.3 45 - 73 % [facility] Imm Gran Pct Auto 0.3 0.0 - 0.4 % [facility] Lymphocytes Percent Auto 20.4 20 - 40 % [facility] Monocytes Percent Auto 5.6 2 - 11 % [facility] Eosinophils Percent Auto 3.0 0 - 4 % [facility] Basophils Percent Auto 0.4 0 - 2 % [facility] NRBC Pct Auto 0.0 0.0 - 0.2 /100WBC [facility] Neutrophils Absolute Auto 8.6(H) 2.0 - 8.3 x10*3/uL [facility] Imm Gran Abs Auto 0.04(H) 0.00 - 0.03 X10*3/uL [facility] Lymphocytes Absolute Auto 2.5 1.2 - 4.9 X10*3/uL [facility] Monocytes Absolute Auto 0.7 0.1 - 1.2 X10*3/uL [facility] Eosinophils Absolute Auto 0.4 0.0 - 0.4 X10*3/uL [facility] Basophils Absolute Auto 0.1 0.0 - 0.2 X10*3/uL [facility] NRBC Abs Auto 0.000 0.0 - 0.012 X10*3/uL [facility] 07/03/2022 7:10 AM EST 07/03/2022 7:12 AM EST [facility] External Provider LAB BLO OD ORDERABLES Final Result [facility] [address] [place] [address] [phone] documented in this encounter Visit Diagnoses Not on filedocumented in this encounter Care Teams Tonal Regulator Relationship Specialty Start Date End Date Dixie Duke MD [address] [place] [address] PCP - General Family Medicine 08/04/20 documented as of this encounter
--- OUTSIDE RECORDS SUMMARY | 2024-10-30 09:03 | XMS_ITS | Encounter Summary ---
Author Organization [employer] Address [address]t [place] [address] Care Team Providers Care Service Line Coordinator Name Role Phone Dixie Duke MD Primary Care Provide r Reason for Visit * Reason Onset Date Comments Med Refill 10/26/2024 Encounter Details Date Type Department Care Team (Late st Contact Info) Description 10/26/2024 Refill [facility] MEDICINE [address] [place], [place] [phone] Dixie Duke MD [address] [place], [place] [phone] Chronic migraine without aura without status migrainosus, [...] documented as of this encounter Care Teams Service Line Coordinator Relationship Specialty Start Date End Date Dixie Duke MD [address] [place] [phone] PCP - General Family Medicine 08/04/20 documented as of this encounter
--- OUTSIDE RECORDS SUMMARY | 2024-10-30 09:03 | XMS_ITS | Encounter Summary ---
Author Organization [employer] Address [address] [facility] [address]t [place] [address] Care Team Providers Care Texture Artist Name Role Phone Dixie Duke MD Primary Care Provide r Reason for Visit * Reason Onset Date Comments Med Refill 10/26/2024 Encounter Details Date Type Department Care Team (Late st Contact Info) Description 10/26/2024 Refill [facility] MEDICINE [address] [place] [address] Dixie Duke MD [address] [place] [address] Migraine with aura and without status migrainosus, [...] documented as of this encounter Care Teams Texture Artist Relationship Specialty Start Date End Date Dixie Duke MD [address] [place] [phone] PCP - General Family Medicine 08/04/20 documented as of this encounter
--- OUTSIDE RECORDS SUMMARY | 2024-10-30 09:03 | XMS_ITS | Encounter Summary ---
Author Organization [employer] Address [address] [place] [address] Care Team Providers Care National Flatbed Truck Driver Name Role Phone Dixie Duke MD Primary Care Provide r Reason for Visit * Reason Onset Date Comments Med Refill 10/26/2024 Encounter Details Date Type Department Care Team (Late st Contact Info) Description 10/26/2024 Refill [facility] MEDICINE [address] [place], [place] [phone] Dixie Duke MD [address] [place], [place] [phone] Generalized abdominal pain Social History Tobacco Use Types Packs/Day Years [...] as of this encounter Visit Diagnoses Diagnosis Generalized abdominal pain Abdominal pain, generalized documented in this encounter Additional Health Concerns Assessment Noted Time PHQ-9 Depression Total Score: 0 12/01/19 24 3:26 PM EDT documented as of this encounter Care Teams National Flatbed Truck Driver Relationship Specialty Start Date End Date Dixie Duke MD [address] [place] [phone] PCP - General Family Medicine 08/04/20 documented as of this encounter
--- OUTSIDE RECORDS SUMMARY | 2024-10-30 09:03 | XMS_ITS | Encounter Summary ---
Author Organization [employer] Address [address] [facility] [address] [place] [address] Care Team Providers Care Power Cutting Machine Operator Name Role Phone Dixie Duke MD Primary Care Provide r Reason for Visit * Reason Onset Date Comments Med Refill 10/26/2024 Encounter Details Date Type Department Care Team (Late st Contact Info) Description 10/26/2024 Refill [facility] MEDICINE [address] [place], [place] [phone] Dixie Duke MD 230 [place], [place] [phone] Chronic migraine without aura without status migrainosus, [...] documented as of this encounter Care Teams Power Cutting Machine Operator Relationship Specialty Start Date End Date Dixie Duke MD [address] [place] [phone] PCP - General Family Medicine 08/04/20 documented as of this encounter
--- OUTSIDE RECORDS SUMMARY | 2024-10-30 09:03 | XMS_ITS | Encounter Summary ---
Author Organization [employer] Address [address] [facility] [facility] [address] [place] [address] Care Team Providers Care Patient Transport Orderly Name Role Phone Dixie Duke MD Primary Care Provide r Reason for Visit * Reason Comments Med Refill Encounter Details Date Type Department Care Team ([facility] st Contact Info) Description 05/26/2023 Refill [facility] MEDICINE 230 [place], [place] [phone] Dixie Duke MD 230 [place], [place] [phone] Irritable bowel syndrome, unspecified type Social History Tobacco Use Types Packs/Day Years Used Date Smoking Tobacco: Never Passive Smoke Exposure: Never Smokeless Tobacco: Never Alcohol Use Standard Drinks/Week Comments Never 0 (1 standard drink = 0.6 oz pur e alcohol) Depression Answer Date Recorded Patient Health Questionnaire-9 Score 0 10/13/2022 Housing Stability Answer Date Recorded What is your housing situation today? I have fantasma appiah 04/19/[address] you li ve. Do you have problems with any of the following? None of the above 04/19/2023 Food Insecurity Answer Date Recorded Within the past 12 months, y ou worried that your food would run out before you got money to buy more: Never True 04/19/2023 Within the past 12 months,th e food you bought just didn't last and you didn't have enough money to get more: Never True Transportation Answer Date Recorded In the past 12 months, has l ack of transportation kept you from medical appts, meetings, work or from getting things needed for daily living? No 04/19/2023 Utilities Answer Date Recorded In the past 12 months, has t he electric, gas, oil or water company threatened to shut off services in your home? No 04/19/2023 Depression Answer Date Recorded Patient Health Questionnaire-2 [...] as of this encounter Visit Diagnoses Diagnosis Irritable bowel syndrome, unspecified type documented in this encounter Additional Health Concerns Assessment Noted Time PHQ-9 Depression Total Score: 0 10/14/19 23 2:07 PM EDT documented as of this encounter Care Teams Patient Transport Orderly Relationship Specialty Start Date End Date Dixie Duke MD [address] [place] [phone] PCP - General Family Medicine 08/04/20 documented as of this encounter
--- OUTSIDE RECORDS SUMMARY | 2024-10-30 09:03 | XMS_ITS | Encounter Summary ---
Author Organization [employer] Address [address] [facility] [facility] [address]t [place] [address] Care Team Providers Care Material Yard Clerk Name Role Phone Dixie Duke MD Primary Care Provide r Reason for Visit * Reason Onset Date Comments Med Refill 07/15/2024 Encounter Details Date Type Department Care Team (Late st Contact Info) Description 07/15/2024 Refill [facility] MEDICINE [address] [place] [address] Dixie Duke MD 230 [place] [address] Social History Tobacco Use Types Packs/Day Years [...] documented as of this encounter Care Teams Material Yard Clerk Relationship Specialty Start Date End Date Dixie Duke MD [address] [place] [address] PCP - General Family Medicine 08/04/20 documented as of this encounter
--- OUTSIDE RECORDS SUMMARY | 2024-10-30 09:03 | XMS_ITS | Encounter Summary ---
Author Organization [employer] Address [address] [facility] [address] [facility] [address] [place] [address] Care Team Providers Care Health Associate Name Role Phone Dixie Duke MD Primary Care Provide r Reason for Visit * Reason Onset Date Comments Med Refill 07/15/2024 Encounter Details Date Type Department Care Team (Late st Contact Info) Description 07/15/2024 Refill [facility] MEDICINE 230 [place] [address] Dixie Duke MD [address] [place] [address] Social History Tobacco Use Types Packs/Day Years [...] documented as of this encounter Care Teams Health Associate Relationship Specialty Start Date End Date Dixie Duke MD [address] [place] [address] PCP - General Family Medicine 08/04/20 documented as of this encounter
--- OUTSIDE RECORDS SUMMARY | 2024-10-30 09:03 | XMS_ITS | Encounter Summary ---
Author Organization [employer] Address [address] [facility] [address] [place] [address] Care Team Providers Care Digital Media Associate Name Role Phone Dixie Duke MD Primary Care Provide r Reason for Visit * Reason Onset Date Comments Med Refill 06/05/2024 Encounter Details Date Type Department Care Team (Late st Contact Info) Description 06/05/2024 Refill [facility] MEDICINE [address] [place] [phone] Dixie Duke MD [address] [place] [address] Irritable bowel syndrome, unspecified type; Chronic migraine without aura without status migrainosus, [...] Diagnoses Diagnosis Irritable bowel syndrome, unspecified type Chronic migraine without aura without status migrainosus, not intractable documented in this encounter Additional Health Concerns Assessment Noted Time PHQ-9 Depression Total Score: 0 12/01/19 24 3:26 PM EDT documented as of this encounter Care Teams Digital Media Associate Relationship Specialty Start Date End Date Dixie Duke MD [address] [place] [phone] PCP - General Family Medicine 08/04/20 documented as of this encounter
--- OUTSIDE RECORDS SUMMARY | 2024-10-30 09:03 | XMS_ITS | Clinical Summary ---
Author Organization [employer] Address [address] [place] [address] Care Team Providers Care Yoga Teacher Name Role Phone Dixie Duke MD Primary Care Provide r Allergies Active Allergy Reactions Criticality Noted Date Comments Hydrocodone 07/10/2010 Other reaction(s): unspecified Hydrocodone-Acetaminophen 07/30/2022 Sulfamethoxazole 03/14/2017 Other reaction(s): hives Trimethoprim 03/14/2017 Other reaction(s): hives Medications * This document contains information received from the source organization and may not represent a complete record from that organization. naratriptan (Amerge) 1 MG tablet TAKE 1 TABLET BY MOUTH EVERY DAY NEEDED FOR MIGRAINE HEADACHE MAY REPEAT DOSE ONCE IN 4 HOURS DO NOT EXCEED 2 TABLETS PER 24 HOURS DO NOT EXCEED 3 DOSES PER WEEK Active verapamil (Calan) 40 MG tablet Take 40 mg by mouth 1 (one) time each day. From neurology Active baclofen (Lioresal) 10 MG tablet TAKE 1 TABLET BY MOUTH THREE TIMES DAILY NEEDED FOR MUSCLE SPASMS OR FOR PAIN Active triamcinolone (Kenalog) 0.1 % cream Apply topically every 12 (twelve) hours. Active SUMAtriptan (Imitrex) 100 MG tablet TAKE 1 TABLET BY MOUTH AT ONSET OF MIGRAINE. MAY REPEAT ONCE AFTER 2 HOURS IF NEEDED. NO MORE THAN 2 TABLETS PER 24 HOURS Active sucralfate (Carafate) 1 g tablet Take 1 tablet by mouth every 8 (eight) hours. Active GAS RELIEF 125 MG capsule TAKE 1 CAPSULE BY MOUTH 3 TO 4 TIMES PER DAY NEEDED FOR GAS Active SM Nasal Decongestant 120 MG 12 hr tablet TAKE 1 TABLET BY MOUTH EVERY TWELVE HOURS NEEDED FOR NASAL CONGESTION Active metroNIDAZOLE (Metrogel) 0.75 % vaginal gel USE 1 APPLICATORFUL VAGINALLY TWICE DAILY FOR 5 DAYS Active medroxyPROGESTERo ne (Provera) 10 MG tablet Take 10 mg by mouth in the morning. Active lidocaine (Xylocaine) 5 % ointment Apply topically every 8 (eight) hours. Active ketoconazole (NIZOral) 2 % shampoo APPLY TOPICALLY TO AFFECTED AREA(S), LATHER, LEAVE por 5 MINUTES THEN RINSE WITH WATER Active hydrOXYzine HCl (Atarax) 25 MG tablet Take 1 tablet by mouth every 8 (eight) hours. Active fluconazole (Diflucan) 150 MG tablet TAKE 1 TABLET BY MOUTH ONCE FOR ONE DOSE DIRECTED. Active FeroSul 325 (65 Fe) MG tablet Take 1 tablet by mouth 2 times daily. Active docusate sodium (Colace) 100 MG capsule Take 100 mg by mouth at bedtime. Active Diclofenac Sodium 1 % gel APPLY 2 GRAMS TOPICALLY TO AFFECTED AREA(S) TWICE DAILY NEEDED FOR PAIN Active fish oil ([place]-3) 500 MG capsuleIndication s:Hypertriglyceri demia Take 1 capsule (500 mg) by mouth in the morning. 90 capsule 3 Active hydrocortisone (Anusol-HC) 2.5 % rectal creamIndications: Other hemorrhoids Insert into the rectum 2 times daily. 30 g 1 023 Active D3 Super Strength 50 MCG (2000 UT) capsuleIndication s:Viral upper respiratory tract infection Take 1 capsule (50 mcg) by mouth in the morning. 30 capsule 3 023 Active omega-3 (Fish Oil) 1000 MG capsule Take 1,000 mg by mouth in the morning. Active omeprazole (PriLOSEC) [address] capsule TAKE 2 CAPSULES BY MOUTH ONCE DAILY IN THE MORNING 60 capsule 11 Active cyclobenzaprine (Flexeril) 5 MG tablet Take 1 tablet (5 mg) by mouth if needed in the morning, at noon, and at bedtime for muscle spasms. 90 tablet 11 Active gabapentin (Neurontin) 100 MG capsuleIndication s:Fibromyalgia Take 3 capsules (300 mg) by mouth every 8 (eight) hours. 270 capsule 2024 Active fluticasone (Flonase) 50 MCG/ACT nasal spray Administer 2 sprays into each nostril Once per day. Shake gently. Before first use, prime pump. After use, clean tip and replace cap. 16 g 2 024 2024 Active chlorhexidine (Peridex) 0.12 % solution Swish 15 mL morning and night for 1 minute. Spit, do not swallow. Do not eat or drink for 30 minutes following use. 473 mL Active loratadine-pseudo ephedrine ER (Claritin-D 24 Hour) 10-240 MG 24 hr tabletIndications :Viral upper respiratory tract infection Take 1 tablet by mouth Once per day. Do not crush, chew, or split. 30 tablet 1 024 2024 Active fluconazole (Diflucan) 150 MG tabletIndications :Yeast infection Take one tablet and after 72hrs take another tablet 2 tablet Active senna (Senokot) 8.6 MG tabletIndications :Irritable bowel syndrome, unspecified type TAKE 2 TABLETS BY MOUTH EVERY DAY AT BEDTIME FOR CONSTIPATION 120 tablet 3 024 Active aspirin-acetamino phen-caffeine (Pain Reliever Plus) 250-250-65 MG tablet TAKE 1 TABLET BY MOUTH AT ONSET OF MIGRAINE; MAY REPEAT ONCE AFTER 4 HOURS NEEDED 20 tablet 2 Active dicyclomine (Bentyl) 20 MG tablet Take 1 tablet (20 mg) by mouth if needed in the morning, at noon, in the evening, and at bedtime (pain). 90 tablet Active lidocaine (Lidoderm) 5 % patchIndications: Sciatic pain, left APPLY 1 PATCH TOPICALLY TO SKIN IN THE MORNING. LEAVE ON FOR 12 HOURS AND OFF FOR 12 HOURS DIRECTED 30 patch 1 Active omeprazole (PriLOSEC) [address] capsuleIndication s:Generalized abdominal pain TAKE 2 CAPSULES BY MOUTH ONCE DAILY IN THE MORNING 60 capsule 2 Active ibuprofen 800 MG tabletIndications :Migraine with aura and without status migrainosus, not intractable Take 1 tablet (800 mg) by mouth 3 times daily. 90 tablet Active amitriptyline (Elavil) 25 MG tabletIndications :Chronic migraine without aura without status migrainosus, not intractable TAKE 1 TABLET BY MOUTH AT BEDTIME. 90 tablet 3 Active amitriptyline (Elavil) 10 MG tabletIndications :Chronic migraine without aura without status migrainosus, not intractable TAKE 1 TABLET BY MOUTH AT BEDTIME 90 tablet 3 Active meclizine (Antivert) 25 MG tabletIndications :Dizziness Take 1 tablet by mouth three times daily as needed 10 tablet Active cyclobenzaprine (Flexeril) 5 MG tabletIndications :Chronic left shoulder pain Take 1 tablet (5 mg) by mouth if needed in the morning, at noon, and at bedtime for muscle spasms. 90 tablet Active ondansetron ODT (Zofran-ODT) 4 MG disintegrating tabletIndications :Migraine with aura and without status migrainosus, not intractable DISSOLVE 1 TABLET ON TONGUE EVERY 6 TO 8 HOURS NEEDED FOR NAUSEA AND VOMITING 20 tablet 1 Active cetirizine (ZyrTEC) 10 MG tabletIndications :Seasonal allergies Take 1 tablet (10 mg) by mouth Once per day. 30 tablet 2 025 2024 Active magnesium oxide (Mag-Ox) 400 (240 Mg) MG tabletIndications :Chronic migraine without aura without status migrainosus, not intractable TAKE 1 TABLET BY MOUTH EVERY DAY WITH FOOD 30 tablet 11 Active diphenhydrAMINE (BENADryl) 25 MG tabletIndications :Chronic migraine without aura without status migrainosus, not intractable Take 1 tablet (25 mg) by mouth every 8 (eight) hours if needed for itching. 30 tablet 2 025 2024 Active riboflavin (Vitamin B-2) 400 MG tabletIndications :Chronic migraine without aura without status migrainosus, not intractable Take 1 tablet (400 mg) by mouth Once per day. 30 tablet 1 025 Active cyclobenzaprine (Flexeril) 5 MG tablet TAKE 1 TABLET BY MOUTH THREE TIMES DAILY NEEDED 90 tablet 2024 Discontinued(R eorder (will not trigger notification to Pharmacy)) magnesium oxide (Mag-Ox) 400 (240 Mg) MG tablet TAKE 1 TABLET BY MOUTH EVERY DAY WITH FOOD 30 tablet 11 2024 Discontinued(R eorder (will not trigger notification to Pharmacy)) omeprazole (PriLOSEC) [address] capsule TAKE 2 CAPSULES BY MOUTH ONCE DAILY IN THE MORNING 60 capsule 2 2024 Discontinued(R eorder (will not trigger notification to Pharmacy)) cetirizine (ZyrTEC) 10 MG tablet Take 1 tablet (10 mg) by mouth Once per day. 30 tablet 2 2024 Discontinued(R eorder (will not trigger notification to Pharmacy)) riboflavin (Vitamin B-2) 400 MG tablet Take 1 tablet by mouth Once per day. 2024 Discontinued(R eorder (will not trigger notification to Pharmacy)) ondansetron ODT (Zofran-ODT) 4 MG disintegrating tabletIndications :Migraine with aura and without status migrainosus, not intractable DISSOLVE 1 TABLET ON TONGUE EVERY 6 TO 8 HOURS NEEDED FOR NAUSEA AND VOMITING 20 tablet 1 2024 Discontinued(R eorder (will not trigger notification to Pharmacy)) meclizine (Antivert) 25 MG tabletIndications :Dizziness Take 1 tablet by mouth three times daily as needed 10 tablet 2024 Discontinued(R eorder (will not trigger notification to Pharmacy)) amitriptyline (Elavil) 25 MG tabletIndications :Chronic migraine without aura without status migrainosus, not intractable TAKE 1 TABLET BY MOUTH AT BEDTIME. 90 tablet 3 2024 Discontinued(R eorder (will not trigger notification to Pharmacy)) amitriptyline (Elavil) 10 MG tabletIndications :Chronic migraine without aura without status migrainosus, not intractable TAKE 1 TABLET BY MOUTH AT BEDTIME 90 tablet 3 024 2024 Discontinued(R eorder (will not trigger notification to Pharmacy)) ibuprofen 800 MG tabletIndications :Migraine with aura and without status migrainosus, not intractable TAKE 1 TABLET BY MOUTH THREE TIMES DAILY IN THE MORNING, AT NOON, AND AT BEDTIME FOR MILD PAIN 90 tablet 025 2024 Discontinued(R eorder (will not trigger notification to Pharmacy)) lidocaine (Lidoderm) 5 % patchIndications: Sciatic pain, left APPLY 1 PATCH TOPICALLY TO SKIN IN THE MORNING. LEAVE ON FOR 12 HOURS AND OFF FOR 12 HOURS DIRECTED 30 patch 1 025 2024 Discontinued(R eorder (will not trigger notification to Pharmacy)) Active Problems Problem Noted Date Diagnosed Date Left sided numbness 10/10/2024 Chronic left shoulder pain 10/10/2024 Assessment & Plan (10/11/2024 12:25 PM EDT): Nerve conduction test ordered today she will be contacted with results Carpal tunnel syndrome, left 10/10/2024 Colon cancer screening 10/10/2024 Generalized abdominal pain 07/24/2024 Assessment & Plan (07/24/2024 5:52 PM EST): It seems to be related to IBS, advised patient to increase hydration, keep a symptom diary, and take senna to make sure that she has at least 1 BM per day. Take bentyl 20 mg 4 times a day as needed abdominal pain, caution with constipation. Return to clinic [facility] if she develops fever, decreased appetite, nausea or worsening abdominal pain. Left foot pain 04/18/2024 Sciatic pain, left 04/18/2024 Right rotator cuff tendonitis 03/16/2024 Bilateral hand pain 03/16/2024 Assessment & Plan (03/16/2024 2:00 PM EDT): I will repeat nerve test and after possibly refer her to hand specialist C/w bilateral wrist braces Anxiety 02/23/2024 Assessment & Plan (04/18/2024 2:18 PM EDT): Counseling done No need for now therapist or medications, I will continue to follow Spasm of both trapezius muscles 02/08/2024 Chronic pericoronitis 01/05/2024 Acute pericoronitis 12/26/2023 Encounter for screening mamm ogram for malignant neoplasm of breast 12/01/2023 Shortness of breath 09/05/2023 Chronic cough 09/05/2023 Seasonal allergies 09/05/2023 Stress incontinence 09/05/2023 Chronic right shoulder pain 09/05/2023 Sore throat 08/02/2023 Assessment & Plan (08/02/2023 10:41 AM EST): Rapid strep neg Periodontal disease 05/11/2023 Dental calculus 05/11/2023 Viral upper respiratory tract infection 03/24/20 Assessment & Plan (03/24/2023 4:52 PM EDT): Drink plenty of fluids rest Other hemorrhoids 12/09/2022 Skin lesions 12/09/2022 Right hand pain 11/11/2022 Assessment & Plan (11/11/2022 12:12 PM EDT): I will order XRAY for further information with results possible referral to hand specialist Breast pain, left 11/11/2022 Fibromyalgia 07/30/2022 Assessment & Plan (12/02/2023 4:20 PM EDT): Patient was educated about multidisciplinary approach for her condition, it was advise cardiovascular exercise, maintain hydration, treat anxiety/depression and take medications as directed Assessment & Plan (03/24/2023 4:53 PM EDT): Patient was educated about multidisciplinary approach for her condition, it was advise cardiovascular exercise, maintain hydration, treat anxiety/depression and take medications as directed Assessment & Plan (10/13/2022 2:46 PM EDT): Patient was educated about multidisciplinary approach for her condition, it was advise cardiovascular exercise, maintain hydration, treat anxiety/depression and take medications as directed Continue with same dose of amitriptyline I advise patient to switch cyclobenzaprine to baclofen Continue alternating ibuprofen and acetaminophen I will start her today on gabapentine 100mg Q 8hrs RTC 4-8 weeks Assessment & Plan (07/30/2022 6:50 AM EST): Currently taking Amitriptyline for both headaches and fibromyalgia At highest dose possible, otherwise becomes fatigued the next day Consider Cymbalta Bleeds easily 07/30/2022 Polyp of corpus uteri 07/28/2022 Acute maxillary sinusitis 07/28/2022 Acute pain of right knee 07/28/2022 Anemia 07/28/2022 Dizziness 07/28/2022 Fatigue 07/28/2022 Assessment & Plan (11/11/2022 12:11 PM EDT): Patient has history of iron deficiency anemia CBC will be check It can also be related to her fibromyalgia RTC 4 weeks Head and neck lymphadenopathy 07/28/2022 Iron deficiency anemia 07/28/2022 Irritable bowel syndrome 07/28/2022 Localized swelling of both lower legs 07/28/2022 Metrorrhagia 07/28/2022 Assessment & Plan (03/16/2024 1:59 PM EDT): C/w ibuprofen PRN BV done today patient will be contacted with reults US pelvic and transvaginal Do not miss appointment with OBGYN Assessment & Plan (12/02/2023 4:21 PM EDT): I will refer patient back to Dr Vyas Assessment & Plan (10/13/2022 2:44 PM EDT): Continue to follow with [employer] Migraine with aura 07/28/2022 Assessment & Plan (10/11/2024 12:26 PM EDT): I advise to avoid migraine triggers like red wine, chocolate, cheese, strong perfumes Continue same medication regimen Assessment & Plan (10/13/2022 2:47 PM EDT): Continue with amytriptiline and Fioricet PRN Continue to follow wit neurology Migraine without aura, not refractory 07/28/2022 Tremor 07/28/2022 Vaginal discharge 07/28/2022 Neck pain 01/21/2017 Assessment & Plan (10/11/2024 12:25 PM EDT): X-ray ordered today I will contact her with results Palpitations 01/26/2016 Encounters Date Type Department Care Team Description 10/26/[address] [facility] [address] [facility] [place] [address] Dixie Duke MD Chronic migraine without aura without status migrainosus, not intractable 10/26/[address] [facility] [address] [place] [address] Dixie Duke MD Migraine with aura and without status migrainosus, not intractable 10/26/[address] [facility] [address] [place] [address] Dixie Duke MD Chronic migraine without aura without status migrainosus, not intractable 10/26/[address] [facility] [address] [place] [address] Dixie Duke MD Chronic migraine without aura without status migrainosus, not intractable 10/26/[address] [facility] [address] [place] [address] Dixie Duke MD Migraine with aura and without status migrainosus, not intractable 10/26/[address] [facility] [address] [place] [address] Dixie Duke MD Generalized abdominal pain 10/11/[address] [facility] [address] [place] [address] Dixie Duke MD telephone call 10/10/2024 3:15 PM EDT Office Visit [facility] [address] [place] [address] Dixie Duke MD Migraine with aura and without status migrainosus, not intractable (Primary Dx); Left sided numbness; Chronic left shoulder pain; Carpal tunnel syndrome, left; Neck pain; Colon cancer screening; Sciatic pain, left; Chronic migraine without aura without status migrainosus, not intractable; Dizziness; Seasonal allergies; Generalized abdominal pain; Chronic cough 10/10/2024 Travel 10/03/[address] [facility] [address] [place] [address] Dixie Duke MD Chart Prep 10/02/[address] [facility] [address] [place] [address] Dixie Duke MD Appointment Request 09/07/2024 Population Health Risk Score [facility] ([facility]) Department [address] [place] [id number] Provider, Population Health Generic 08/27/[address] [facility] [address] [place] [address] Dixie Duke MD Sciatic pain, left from Last 3 Months Immunizations Name Administration Dates Next Due Hep A, ped/adol, 2 dose 07/24/2007,02/28/2003 Hep B, Adolescent or Pediatric 06/05/2010,2007,03/20/2003 Influenza Injectable Quadriv alant Preservative Free IIV4 MDCK 03/19/2020 Influenza injectable quadriv alent preservative free 06/02/2016 Influenza, IIV3, injectable 04/20/2011 Influenza, Split (incl. antwan fied surface antigen) 04/20/2013 TD (adult), 2 Lf tetanus tox oid, preservative free, adsorbed 11/02/2010 Tdap 05/11/2023,04/20/2013 Social History Tobacco Use Types Packs/Day Years Used Date Smoking Tobacco: Never Passive Smoke Exposure: Never Smokeless Tobacco: Never Tobacco Cessation:Counseling Given: Not Answered Alcohol Use Standard Drinks/Week Comments Never 0 [...] Orientation Straight 04/26/2022 10 :15 AM EDT Last Filed Vital Signs Vital Sign Reading Time Taken Comments Blood Pressure 131/81 10/10/2024 3:12 PM EDT Pulse 81 10/10/2024 3:12 PM EDT Temperature 36.8 ??C (98.2 ??F) 07/24/2024 5:28 PM ES T Respiratory Rate 16 10/10/2024 3:12 PM EDT Oxygen Saturation 97% 10/10/2024 3:12 PM EDT Inhaled Oxygen Concentration - - Weight 69 kg (152 lb 2 oz) 10/10/2024 3:12 PM ED T Height 154.9 cm (5' 1 ) 10/10/2024 3:12 PM EDT Body Mass Index 28.74 10/10/2024 3:12 PM EDT Plan of Treatment Health Maintenance Due Date Last Done Comments CT Colonography 1978 Colonoscopy 1978 Colorectal Cancer Screening 1978 Dental Oral Exam 1978 Dental Prophylaxis 1978 Dental X-Ray: Bitewings 1978 FIT DNA/Cologuard 1978 FIT 1978 FOBT 1978 Sigmoidoscopy 1978 Alcohol/Substance Use Screening 1990 Family Planning (PISQ) 1993 Hepatitis B Vaccines (1 of 3 - 19+ 3-dose series) 1997 06/05/2010, 07/24/2007, 03/20/2003 Pap Smear 10/05/1999 Mammogram 2018 Cervical Cancer Screening 04/14/2021 HPV/Cotest 04/14/2021 04/14/2016 COVID-19 Vaccine ( season) 2024 06/12/2021, 08/07/2020, 07/10/2020 Influenza Vaccine (#1) 2024 , 06/02/2016, 04/20/2013, Additional history exists Depression Screening 11/30/2024 12/01/2023, 12/01/19 24 SDOH Screening 11/30/2024 12/01/2023 Tobacco Screening 10/10/2025 10/10/2024 Dental X-Ray: Full Mouth 12/26/2026 12/26/2023, 04/27 Zoster Vaccines (1 of 2) 2028 DTaP/Tdap/Td Vaccines (3 - Td or Tdap) 05/11/2033 05/11/2023, 04/20/2013, 11/02/2010 RSV Patients and Patients Aged 60 years or older (1 - 1-dose 75+ series) 2053 Hepatitis A Vaccines Aged Out 07/24/2007, 02/29/20 03 No longer eligible based on patient's age to complete this topic HIV Screening Completed 08/03/2022, 01/07/2021 Hepatitis C Screening Completed 08/03/2022, 021 HIB Vaccines Aged Out No longer eligi ble based on patient's age to complete this topic HPV Vaccines Aged Out No longer eligi ble based on patient's age to complete this topic IPV Vaccines Aged Out No longer eligi ble based on patient's age to complete this topic Meningococcal Vaccine Aged Out No ovi moises eligible based on patient's age to complete this topic Pneumococcal Vaccine: Pediatrics (0 to 5 Years) and At-Risk Patients (6 to 49) Years) Aged Out No longer eligible based on patient's age to complete this topic RSV under 20 months Aged Out No longe r eligible based on patient's age to complete this topic Rotavirus Vaccines Aged Out No longer eligible based on patient's age to complete this topic Procedures Procedure Name Priority Date/Time Associated Diagnosis Comments PANORAMIC RADIOGRAPHIC IMAGE Routine 12/26/2023 9:00 AM EDT HEPATITIS C AB W/REFL TO HCV RNA, QN, PCR Routine 08/03/2022 9:04 AM EST Health care maintenance HIV 1 RNA, QUANTITATIVE REAL TIME PCR Routine 08/03/2022 9:04 AM EST Health care maintenance ZZZ HISTORICAL HPV MRNA E6/E7 Routine 04/14/2016 3:40 PM EDT from Last 3 Months or Most Recently Relevant to Health Maintenance Results * Hepatitis C Antibody with Reflex to HCV, RNA, Quantitative, Real-Time PCR (08/03/2022 9:04 AM EST) Hepatitis C Antibody NON-REACT VIKTORIYA NON-REACT VIKTORIYA Access Information Management Index <0.02 <1.00 Access Information Management Comment: HCV antibody was non-reactive. There is no laboratory evidence of HCV infection. In most cases, no further action is required. However, if recent HCV exposure is suspected, a test for HCV RNA (test code 12604) is suggested. For additional information please refer to [email or web address]/faq/GNS56i7 (This link is being provided for informational/ educational purposes only.) Blood Venous blood specimen / Unknown 08/03/2022 9:04 AM EST 08/03/2022 9:04 AM EST Narrative [facility] - 08/04/2022 3:00 PM EST FASTING:NO FASTING: NO Rebekah Lopes MD LAB BLOOD ORDERABLES Final Res ult Performing Organization Address City/[facility]/ZIP Co de Phone Number [address], [place] [address] [facility], ([address]) [place] [address] * HIV-1 RNA, Quantitative, Real-Time PCR (08/03/2022 9:04 AM EST) Pathologist [facility] HIV 1 RNA, QN PCR NOT DETECTED NOT DETECTED copies/mL [facility] 1 RNA, QN PCR NOT DETECTED NOT DETECTED Log copies/mL [facility] Comment: This test was performed using Real-Time Polymerase Chain Reaction. Reportable Range: 20 copies/mL to 10,000,000 copies/mL (1.30 log copies/mL to 7.00 log copies/mL). Blood Venous blood specimen / Unknown 08/03/2022 9:04 AM EST 08/03/2022 9:04 AM EST Narrative [facility] - 08/04/2022 3:00 PM EST FASTING:NO FASTING: NO Rebekah Lopes MD LAB BLOOD ORDERABLES Final Res ult Performing Organization Address [facility] Co de Phone Number [address], [place] [address] [facility], ([address]) [place] [address] * HPV mRNA E6/E7 (04/14/2016 3:40 PM EDT) Pathologist [facility] HPV mRNA E6/E7 Not Detected NOT DETECTED [facility] Comment: This assay detects E6/E7 viral messenger RNA (mRNA) from 14 high-risk HPV types (16,18,31,33,35,39,45,51, 52,56,58,59,66,68). This test was performed using the APTIMA(R) TMA HPV Assay ([employer] For additional information, please refer to [email or web address] [email or web address].[employer]/faq/REO612f3 Test Performed by [facility], [facility], [address] [place] [address] Mayco Smith M.D., Ph.D., Director of Laboratories , PETE [id number] Please note: ??Effective 03/08/2016, HPV testing will be performed using [employer]'s APTIMA test which targets mRNA. Detecting mRNA instead of DNA, as in older methods, offers significant improvements in specificity. 04/14/2016 3:40 PM EDT Carla Ayala CNM HISTORICAL/NON ORDERABLE LABS Final Result [facility] [address] from Last 3 Months or Most Recently Relevant to Health Maintenance [facility] Care Teams Yoga Teacher Relationship Specialty Start Date End Date Dixie Duke MD [address] [place] [id number] PCP - General Family Medicine 08/04/20
== END 2024-10-30 08:37 | disposition home or self-care (01) ==
LOC: HO.NEURO 08:36
PROVIDERS: PCP Internal Medicine; Visit Provider Internal Medicine
DX: R20.0 Anesthesia of skin (principal); M25.512 Pain in left shoulder
CPT/HCPCS: 95886; 95910

== ENCOUNTER 2024-11-22 14:55 | Outpatient (REF) | payer MEDICAID, SELFPAY ==
--- NOTE | 2024-11-22 | PFT_ITS ---
Indication: Dyspnea Spirometry [FEV1 to FVC 87%; FEV1 2.35 L; FVC 2.69 L. bronchodilators were not use per the patient's request.] Lung Volumes [Total lung capacity 76% predicted; expiratory reserve volume 69% predicted] Diffusion Capacity [DLCO 74% predicted; DLCO VA 92% predicted] Comparisons [none] Interpretation [No obstructive ventilatory defects. No bronchodilators were used. The patient does have a restrictive ventilatory defect consistent mild restrictive lung disease. In addition to that there is a mild diffusion impairment. Need to consider parenchymal lung conditions and or neuromuscular diseases. The diffusion impairment does correct to normal when corrected for the alveolar volume. Clinical correlation warranted.] MTDD
--- OUTSIDE RECORDS SUMMARY | 2024-11-22 15:00 | XMS_ITS | Encounter Summary ---
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 Question Answer Date of Assessment Author Patient Health Questionnaire -2 Score 0 10/13/2022 2:07 PM Ayaan Angel MA * Over the past 2 weeks, how often have you been bothered by any of the following problems? Question Answer Date of Assessment Author Little interest or pleasure in doing things Not at all 10/13/2022 2:07 PM Ayaan Angel MA Feeling down, depressed, or hopeless Not at all 10/13/2022 2:07 PM BEAUT Ayaan Freed MA Trouble falling or staying asleep, or sleeping too much Not at all 10/13/2022 2:07 PM BEAUT Ayaan Freed MA Feeling tired or having hannah le energy Not at all 10/13/2022 2:07 PM Ayaan Angel MA Poor appetite or overeating Not at all 10/13/2022 2: 07 PM Ayaan Angel MA Feeling bad about yourself - or that you are a failure or have let yourself or your family down Not at all 10/13/2022 2:07 PM Ayaan Angel MA Trouble concentrating on things, such as reading the newspaper or watching television Not at all 10/13/2022 2:07 PM Ayaan Angel MA Moving or speaking so slowly that other people could have noticed? Or the opposite - being so fidgety or restless that you have been moving around a lot more than usual. Not at all 10/13/2022 2:07 PM Ayaan Angel MA Thoughts that you would be better off or hurting yourself in some way Not at all 10/13/2022 2:07 PM Ayaan Angel MA Patient Health Questionnaire -9 Score 0 10/13/2022 2:07 PM Ayaan Angel MA documented as of this encounter Plan of Treatment Not on file documented as of this encounter Visit Diagnoses Not on filedocumented in this encounter Care Teams Crepe Machine Operator Relationship Specialty Start Date End Date Dixie Duke MD [address] [place] [id number] PCP - General Family Medicine 08/04/20 documented as of this encounter
== END 2024-11-22 14:56 | disposition home or self-care (01) ==
LOC: HO.RESP 14:55
PROVIDERS: PCP Internal Medicine; Visit Provider Internal Medicine
DX: R05.3 Chronic cough (principal)
CPT/HCPCS: 94010; 94727; 94729

== ENCOUNTER → 2024-11-22 15:15 | Outpatient (BNV) | payer MEDICAID, SELFPAY | PROVIDERS: PCP Internal Medicine; Visit Provider Hospitalist | DX: R05.3 Chronic cough (principal) | CPT/HCPCS: 94060; 94727; 94729 ==

== ENCOUNTER 2024-12-10 07:16 | Day surgery (SDC) | payer OTHER, MEDICAID, SELFPAY ==
--- NOTE | 2024-07-12 09:15 | HO.ANESPROP2 ---
HPI - Anesthesia Eval Consult details Narrative: 43yo F for Upper Endoscopy and Colonoscopy PMFSH Active Problems Active Problems: All Active Problems Biceps tendonitis on right (Acute) Tendinitis of right rotator cuff (Acute) Pelvic pain (Acute) Pelvic floor weakness (Acute) Vagina boil (Acute) Vaginal discharge (Acute) Vulvovaginitis due to Shaina (Acute) Abnormal uterine bleeding (AUB) (Acute) Menorrhagia (Acute) Dysfunctional uterine bleeding (Acute) Cervical cancer screening (Acute) Well woman exam with routine gynecological exam (Acute) IBS (irritable bowel syndrome) (Acute) Pelvic cramping (Acute) Potential exposure to STD (Acute) Well woman exam with routine gynecological exam (Acute) Past Medical History Medical History Back pain Dysfunctional uterine bleeding Gallbladder abscess IBS (irritable bowel syndrome) Menorrhagia Migraine Family History Family history of problems with anesthesia: No Surgical History Surgical History Hx of cholecystectomy History of hysteroscopy Hx of tubal ligation History of Problems with Anesthesia: No Social History Social History (Updated 11/07/23 @ 15:13 by ANDERSON Alatorre) Household Members: Spouse and Children Housing: Apartment Alcohol intake: never Patient Tobacco Use Status: Never used Tobacco Current occupational status: employed 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[employer], 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 Sexual orientation: Straight/Heterosexual Gender identity: Female Meds Allergies Allergy/AdvReac Type Severity Reaction Status Date / Time hydrocodone [Vicodin] AdvReac Unknown vomiting Verified 11/07/23 15:32 Bactrim Allergy Unknown Unknown Uncoded 11/07/23 15:32 Home Medications ?Medication ?Instructions ?Recorded ?Confirmed ?Last Taken ?Type amitriptyline 25 mg tablet 25 mg PO DAILY 06/05/20 06/11/22 Unknown History omeprazole 20 mg tablet,delayed 20 mg PO DAILY 06/05/20 06/11/22 01/23/21 06:00 History release sumatriptan succinate 100 mg tablet 100 mg PO Q2-4H PRN 06/05/20 06/11/22 Unknown History uvrfddb-nhgobnnklxyox-cdfdjupl 250 2 tab PO Q6H PRN Migraine Headache 01/21/21 06/11/22 01/21/21 History mg-250 mg-65 mg tablet (Excedrin Extra Strength) cyclobenzaprine 15 mg 15 mg PO DAILY 02/11/22 06/11/22 Unknown History capsule,extended release 24 hr naratriptan 1 mg tablet 1 mg PO Q4H PRN 02/11/22 06/11/22 Unknown History ascorbic acid (vitamin C) 500 mg 500 mg PO QAM 11/07/23 Unknown History tablet (Vitamin C) cetirizine 10 mg tablet 10 mg PO QAM 11/07/23 Unknown History fluticasone propionate 50 2 spray intranasal DAILY 11/07/23 Unknown History mcg/actuation nasal spray,suspension magnesium oxide 400 mg (241.3 mg 400 mg PO DAILY 11/07/23 Unknown History magnesium) tablet riboflavin (vitamin B2) 100 mg 200 mg PO BID 11/07/23 Unknown History tablet (Vitamin B-2) Assessment and Plan Assessment Anesthesia Assessment: Chart Reviewed Final Anesthetic Review Family History of Problems with Anesthesia: No History of Problems with Anesthesia: No
--- NOTE | 2024-12-07 12:26 | HO.ANESPROP2 ---
Documented by User: Hanna Mondragon NP 12/07/24 12:26 HPI - Anesthesia Eval Consult details Narrative: 44yo F for Upper Endoscopy and Colonoscopy PMFSH Active Problems Active Problems: All Active Problems Biceps tendonitis on right (Acute) Tendinitis of right rotator cuff (Acute) Pelvic pain (Acute) Pelvic floor weakness (Acute) Vagina boil (Acute) Vaginal discharge (Acute) Vulvovaginitis due to Shaina (Acute) Abnormal uterine bleeding (AUB) (Acute) Menorrhagia (Acute) Dysfunctional uterine bleeding (Acute) Cervical cancer screening (Acute) Well woman exam with routine gynecological exam (Acute) IBS (irritable bowel syndrome) (Acute) Pelvic cramping (Acute) Potential exposure to STD (Acute) Well woman exam with routine gynecological exam (Acute) Past Medical History Medical History Menorrhagia Dysfunctional uterine bleeding Gallbladder abscess IBS (irritable bowel syndrome) Back pain Migraine Family History Family history of problems with anesthesia: No Surgical History Surgical History Hx of cholecystectomy History of hysteroscopy Hx of tubal ligation History of Problems with Anesthesia: No Social History Social History Household Members: Spouse and Children Housing: Apartment Are you a primary day care home mother to a significant other at home: No Do you presently have visiting nurse or other home services: No Alcohol intake: never Patient Tobacco Use Status: Former Tobacco user Use of substances other than those prescribed or required for medical reasons: No Have you been hit, kicked, punched, or otherwise hurt by someone within the past year? 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 Sexual orientation: Straight/Heterosexual Gender identity: Female Meds Allergies Allergy/AdvReac Type Severity Reaction Status Date / Time hydrocodone [Vicodin] AdvReac Unknown vomiting Verified 12/10/24 07:51 Bactrim Allergy Unknown Unknown Uncoded 12/10/24 07:51 Home Medications ?Medication ?Instructions ?Recorded ?Confirmed ?Last Taken ?Type amitriptyline 25 mg tablet 25 mg PO DAILY 06/05/20 12/10/24 Unknown History omeprazole 20 mg tablet,delayed 20 mg PO DAILY 06/05/20 12/10/24 01/23/21 06:00 History release sumatriptan succinate 100 mg tablet 100 mg PO Q2-4H PRN Headache 06/05/20 12/10/24 Unknown History wstuhvk-tsfbgqufoecss-mliygytn 250 2 tab PO Q6H PRN Migraine Headache 01/21/21 12/10/24 01/21/21 History mg-250 mg-65 mg tablet (Excedrin Extra Strength) cyclobenzaprine 15 mg 15 mg PO DAILY 02/11/22 12/10/24 Unknown History capsule,extended release 24 hr naratriptan 1 mg tablet 1 mg PO Q4H PRN Headache 02/11/22 12/10/24 Unknown History ascorbic acid (vitamin C) 500 mg 500 mg PO QAM 11/07/23 12/10/24 Unknown History tablet (Vitamin C) cetirizine 10 mg tablet 10 mg PO QAM 11/07/23 12/10/24 Unknown History fluticasone propionate 50 2 spray intranasal DAILY 11/07/23 12/10/24 Unknown History mcg/actuation nasal spray,suspension magnesium oxide 400 mg (241.3 mg 400 mg PO DAILY 11/07/23 12/10/24 Unknown History magnesium) tablet riboflavin (vitamin B2) 100 mg 200 mg PO BID 11/07/23 12/10/24 Unknown History tablet (Vitamin B-2) Assessment and Plan Assessment Anesthesia Assessment: Chart Reviewed Final Anesthetic Review Family History of Problems with Anesthesia: No History of Problems with Anesthesia: No Documented by User: Rosa Burns MD 12/10/24 08:03 PMFSH Past Medical History Medical History Menorrhagia Dysfunctional uterine bleeding Gallbladder abscess IBS (irritable bowel syndrome) Back pain Migraine Surgical History Surgical History Hx of cholecystectomy History of hysteroscopy Hx of tubal ligation Social History Social History Household Members: Spouse and Children Housing: Apartment Are you a primary day care home mother to a significant other at home: No Do you presently have visiting nurse or other home services: No Alcohol intake: never Patient Tobacco Use Status: Former Tobacco user Use of substances other than those prescribed or required for medical reasons: No Have you been hit, kicked, punched, or otherwise hurt by someone within the past year? 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 Sexual orientation: Straight/Heterosexual Gender identity: Female Meds Allergies Allergy/AdvReac Type Severity Reaction Status Date / Time hydrocodone [Vicodin] AdvReac Unknown vomiting Verified 12/10/24 07:51 Bactrim Allergy Unknown Unknown Uncoded 12/10/24 07:51 Home Medications ?Medication ?Instructions ?Recorded ?Confirmed ?Last Taken ?Type amitriptyline 25 mg tablet 25 mg PO DAILY 06/05/20 12/10/24 Unknown History omeprazole 20 mg tablet,delayed 20 mg PO DAILY 06/05/20 12/10/24 01/23/21 06:00 History release sumatriptan succinate 100 mg tablet 100 mg PO Q2-4H PRN Headache 06/05/20 12/10/24 Unknown History mbbmywp-ugjvfuxgedclv-zqdgnwsa 250 2 tab PO Q6H PRN Migraine Headache 01/21/21 12/10/24 01/21/21 History mg-250 mg-65 mg tablet (Excedrin Extra Strength) cyclobenzaprine 15 mg 15 mg PO DAILY 02/11/22 12/10/24 Unknown History capsule,extended release 24 hr naratriptan 1 mg tablet 1 mg PO Q4H PRN Headache 02/11/22 12/10/24 Unknown History ascorbic acid (vitamin C) 500 mg 500 mg PO QAM 11/07/23 12/10/24 Unknown History tablet (Vitamin C) cetirizine 10 mg tablet 10 mg PO QAM 11/07/23 12/10/24 Unknown History fluticasone propionate 50 2 spray intranasal DAILY 11/07/23 12/10/24 Unknown History mcg/actuation nasal spray,suspension magnesium oxide 400 mg (241.3 mg 400 mg PO DAILY 11/07/23 12/10/24 Unknown History magnesium) tablet riboflavin (vitamin B2) 100 mg 200 mg PO BID 11/07/23 12/10/24 Unknown History tablet (Vitamin B-2) Exam Airway Mallampati Class: II TM Dist: >3cm Neck ROM: Full Heart: rrr Lungs: cta Assessment and Plan Assessment Anesthesia Assessment: Anesthesia Plan Discussed Final Anesthetic Review NPO: Yes (says clear liquids till 630) ASA Class: II Final Preanesthetic Review: No Changes in Pt Med Stat, Meds/Allgs Chart Reviewed, Consent Obtained/Reviewed and Anes Risks/Benef Reviewed Patient Risk: Low Procedure Risk: Low Anesthetic Plan Anesthetic Plan: MAC: Disposition: Standard PACU
[2024-12-10] VITALS (7 sets, daily range): BP systolic 98–111; BP diastolic 49–66; PULSE 66–75; RESP 16–20; TEMP 36.2–36.7; O2SAT 97–99; BMI 27.6
--- NOTE | 2024-12-10 07:34 | MHC.SHP ---
Pre-Procedural Eval Section A - 24 Hr Update-Section A only Date of Service: 12/10/24 The patient is an INPATIENT: No The patient has been examined within 24 hours of the surgical procedure. The History & Physical has been completed within 30 days and I have reviewed it.: No Section B - Complete if H&P > 30 days Chief Complaint: Colon cancer screening, abdominal pain Relevant Family History (Specify if Yes): No Relevant Social History: None Present Medications: see Short Stay Collaborative assessment Medical History: Significant History (Back pain Dysfunctional uterine bleeding Gallbladder abscess IBS (irritable bowel syndrome) Menorrhagia Migraine) History of Previous Operations: Relevant previous surgery/procedure and date(s) (Hx of cholecystectomy History of hysteroscopy Hx of tubal ligation) Allergies: Allergies Allergy/AdvReac Type Severity Reaction Status Date / Time hydrocodone [Vicodin] AdvReac Unknown vomiting Verified 11/07/23 15:32 Bactrim Allergy Unknown Unknown Uncoded 11/07/23 15:32 Review of Systems Sugical H&P ROS: Negative: Constitution, Cardiovascular and Respiratory and Yes, Specify: Gastrointestinal (abdominal pain) Exam Surgical H&P Exam: Normal: Heart, Normal: Lungs, Normal: Extremities and Normal: Abdomen Plan Diagnosis/Plan: Unchanged I have reviewed the history and physical and performed a pertinent physical examination on my patient. No changes have occurred unless specified. Time Spent With Patient Time: Total time managing care of this patient today ____ minutes.
[2024-12-10] MEDS: Lactated Ringers 1,000 ML 100 ML IVCONT (08:07)
--- NOTE | 2024-12-10 09:47 | HO.OPN-COLON ---
Colonoscopy Operative Note Operative Note Date of Service: 12/10/24 Narrative: FLEXIBLE TRANSORAL UPPER GASTROINTESTINAL ENDOSCOPY WITH BIOPSIES AND COLONOSCOPY TILL CECUM Pre-op diagnosis: Colon cancer screening, GERD, epigastric pain Post-op diagnosis: GERD, Esophageal nodule, gastric polyps and nodules, Gastritis, Diverticulosis, hemorrhoids Endoscopist:Jena Rodriguez MD Anesthesia:?MAC UPPER ENDOSCOPY Consent: Indications for the procedure and potential complications of bleeding, perforation, reaction to medications and missed diagnosis were discussed with the patient and informed consent was obtained. Instrument: Olympus GIF H 190 mid size upper endoscope Monitoring: Vital signs and clinical assessment, continuous EKG monitoring, Pulse oximetry, Carbon Dioxide monitoring and blood pressure monitoring were done throughout the procedure. Procedure: The patient was placed in the left lateral decubitis position and pre-procedure medications were administered and a bite block was placed. The endoscope was inserted into the mouth and advanced under direct vision to the third part of duodenum. A careful inspection was made as the upper endoscope was withdrawn including a retroflexed examination of the proximal stomach; Findings and interventions are described below. Findings: Larynx: Normal Esophagus: GE junction at 35 cms. No esophagitis or Brewster's. Mildly tortuous esophagus without stricture or ring. A 5-6 mm benign appearing nodule - biopsies Stomach: Multiple 4-5 mm benign appearing polyps in the gastric body - biopsied. Moderate gastric antral erythema - biopsies were obtained from the antrum. Three 6-7 mm benign appearing nodules in the pre-pyloric area - biopsied Grade 2 flap valve on retroflexed examination of the cardia. Duodenum: Normal bulb and descending duodenum Biopsies were obtained from descending duodenum to check for celiac sprue Intervention: Biopsies as noted above COLONOSCOPY PROCEDURE NOTE Instrument: Olympus PCF H 190 L variable stiffness pediatric colonoscope Monitoring: Vital signs and clinical assessment, intermittent blood pressure monitoring, continuous EKG monitoring, Pulse oximetry and Carbon Dioxide monitoring were done throughout the procedure. Please see anesthesia flowsheet. Colon withdrawl time was 12 minutes. Procedure: The patient was placed in the left lateral decubitis position and pre-procedure medications were administered. After a digital rectal examination of the ano-rectum, the video colonoscope was inserted into the rectum and advanced through the colon to the cecum. The colonoscope was slowly withdrawn in a retrograde panoramic fashion and the colon mucosa was carefully examined including a retroflexed view of the rectum. Findings and interventions are described below. Procedure Difficulty: without difficulty - colon was long and there was some loop formation Findings: Terminal Ileum: Not evaluated Cecum: Normal Ascending Colon: Normal Transverse Colon: Normal Descending Colon: Normal Sigmoid Colon: Moderate diverticulosis Rectum: Normal Ano-rectum: Small internal hemorrhoids Colon preparation: Good after some irrigation. [place]ell Bowel Preparation Scale Right colon; 2 Transverse colon: 2 Left colon; 2 (0 = Unprepared colon segment with mucosa not seen due to solid stool that cannot be cleared. 1 = Portion of mucosa of the colon segment seen, but other areas of the colon segment not well seen due to staining, residual stool and/or opaque liquid. 2 = Minor amount of residual staining, small fragments of stool and/or opaque liquid, but mucosa of colon segment seen well. 3 = Entire mucosa of colon segment seen well with no residual staining, small fragments of stool or opaque liquid) Impression and Post Procedure Diagnosis: Endoscopy Findings: ESOPHAGUS: Mildly tortuous esophagus without stricture or ring. A 5-6 mm benign appearing nodule STOMACH: Moderate gastritis, benign-appearing gastric nodules and polyps DUODENUM: Normal - biopsied to check for celiac sprue Colonoscopy Findings: No polyps were detected Moderate diverticulosis seen in the sigmoid colon small hemorrhoids on retroflexed exam. Plan: Pt has a FU appointment on 12/25/24 with Selina Mcrae NP Repeat Colonoscopy in 10 years (earlier if she notes a change in bowel habits or rectal bleeding). A summary of above findings and relevant handouts were given to the patient. BIOPSIES SHOWED: A. Small bowel, biopsy: Small bowel mucosa with preserved villi and no specific change; no evidence of celiac disease. B. Gastric antrum, biopsy: Gastric antral mucosa with focal ectatic vessels and minimal chronic inactive gastritis; negative for H.pylori, intestinal metaplasia and dysplasia. C. Gastric antrum, nodule, biopsy: Gastric antral mucosa with reactive and hyperplastic changes, ectatic vessels, and minimal chronic inactive gastritis; negative for H.pylori, intestinal metaplasia and dysplasia. D. Gastric polyps, biopsy: Gastric body mucosa with minimal chronic inactive gastritis; negative for H.pylori, intestinal metaplasia and dysplasia. E. Esophagus, nodule, biopsy: Squamous mucosa with no specific change; no columnar mucosa present Letter sent with biopsy results. Patient was placed on the colonoscopy recall list for repeat colonoscopy in 10 years.
[2024-12-10] MEDS: Acetaminophen 1,000 MG/100 ML PIGGYBACK 400 MG IV (10:53)
[2024-12-10] MEDS: ondansetron HCL 4 MG/2 ML VIAL IVPUSH (11:18)
== END 2024-12-10 12:22 | disposition home or self-care (01) ==
PROVIDERS: PCP Internal Medicine; Visit Provider Internal Medicine Gastroenterology
PROC: (CPT 45378; principal; 2024-12-10 08:30)
DX: Z12.11 Encounter for screening for malignant neoplasm of colon (principal); K57.30 Diverticulosis of large intestine without perforation or abscess without bleeding; K64.8 Other hemorrhoids; R14.0 Abdominal distension (gaseous); K58.2 Mixed irritable bowel syndrome; R10.13 Epigastric pain; K29.50 Unspecified chronic gastritis without bleeding; K31.7 Polyp of stomach and duodenum; K22.81 Esophageal polyp; K21.9 Gastro-esophageal reflux disease without esophagitis; Z79.82 Long term (current) use of aspirin; Z79.51 Long term (current) use of inhaled steroids; Z79.899 Other long term (current) drug therapy; Z88.8 Allergy status to other drugs, medicaments and biological substances; Z90.49 Acquired absence of other specified parts of digestive tract; Z90.710 Acquired absence of both cervix and uterus; Z87.891 Personal history of nicotine dependence
CPT/HCPCS: 45378; 43239; 88305; 88313; 88342; J0131; J2003; J2250; J2405; J2704; J3010

== ENCOUNTER → 2024-12-10 07:16 | Outpatient (BNV) | payer OTHER, MEDICAID, SELFPAY | PROVIDERS: PCP Internal Medicine; Visit Provider Internal Medicine Gastroenterology | DX: Z12.11 Encounter for screening for malignant neoplasm of colon (principal); K57.30 Diverticulosis of large intestine without perforation or abscess without bleeding; K64.8 Other hemorrhoids; K21.9 Gastro-esophageal reflux disease without esophagitis; K22.81 Esophageal polyp; K29.70 Gastritis, unspecified, without bleeding; K31.7 Polyp of stomach and duodenum | CPT/HCPCS: 43239; 45378 ==